=== PATIENT | male | born 1965 | race Caucasian/White ===

== ENCOUNTER 2018-01-19 12:13 | Inpatient (IN) ==
[2018-01-19] MEDS ORDERED: Heparin 10,000 UNITS/10 ML Vial (for IV use) IV.PUSH STA (12:16)
[2018-01-19] MEDS ORDERED: Morphine Sulfate Inj 2 MG/ML Vial ONE (12:22)
[2018-01-19] MEDS ORDERED: Sod Chloride 0.9% Inj 1,000 ML IV.SIG SCH (12:30)
--- NOTE | 2018-01-19 12:30 | ED ---
HPI General Chief Complaint: STEMI Alert Stated Complaint: STEMI Alert Time Seen by Provider: 01/19/18 12:16 Source: patient and EMS Mode of arrival: EMS Limitations: no limitations History of Present Illness HPI narrative: The patient is 52 years old. He arrives a stimulator. He was mowing his lawn about an hour prior to ED arrival when he developed chest pain. Location retrosternal to left upper extremity to the left elbow. Timing constant. The patient has a family history coronary disease on the father's side evidently with an NE in the 50s. Patient smokes tobacco. He denies history of hyperlipidemia hypertension diabetes. EMS gave 3 sprays nitro. Patient received aspirin in route. MD complaint: chest pain Complete Quality Measures for STEMI Alert Patients STEMI Alert: Yes Onset (ago): hour(s) (1.5) Time: 12:26 Duration: constant Onset: during exertion Pain location: substernal Severity: moderate Severity scale (1-10): 5 Quality: tightness and heaviness Pain radiation: LUE Relieving factors: nothing Exacerbating factors: nothing Context: other Associated symptoms: other Treatments prior to arrival chest pain: aspirin and nitroglycerin Related Data Home Medications Medication Instructions Recorded Confirmed No Known Home Medications 01/19/18 01/19/18 Allergies Allergy/AdvReac Type Severity Reaction Status Date / Time latex Allergy Anaphylaxis Verified 01/19/18 12:15 Review of Systems ROS Unobtainable ROS Unobtainable: other (Clinical condition, ST elevation NE upon arrival) [facility] Medical History Medical History Coronary artery disease (Acute) Patient denies medical problems (Acute) Surgical History Surgical History No history of previous surgery (Acute) S/P cardiac catheterization (Acute) Family History Family History Father Coronary artery disease Mother Colon cancer Social History Social History Substance History: No History of Abuse Second Hand Smoke Exposure: No Smoking Status: Current every day smoker Tobacco Type: Cigarettes How Often Do You Have a Drink Containing Alcohol: Never Recent Travel in [facility] within the Last 8 Weeks: No Recent Out of Country Travel within the Last 8 Weeks: No Exam Narrative Exam Narrative: GENERAL: 52-year-old male well-nourished well-developed, appropriate anxiety SKIN: Focused skin assessment warm/dry. HEAD: Atraumatic. Normocephalic. EYES: Pupils equal and round. No scleral icterus. No injection or drainage. ENT: No nasal bleeding or discharge. Mucous membranes pink and moist. NECK: Trachea midline. No JVD. CARDIOVASCULAR: Tachycardia. Regular rhythm. RESPIRATORY: No accessory muscle use. Clear to auscultation. Breath sounds equal bilaterally. GASTROINTESTINAL: Abdomen soft, non-tender, nondistended. Hepatic and splenic margins not palpable. MUSCULOSKELETAL: No obvious deformities. No clubbing. No cyanosis. No edema. NEUROLOGICAL: Awake and alert. No obvious cranial nerve deficits. Motor grossly within normal limits. Normal speech. PSYCHIATRIC: Appropriate mood and affect; insight and judgment normal. Course Initial Documented Vital Signs Temperature 98.7 F 01/19/18 12:15 Pulse Rate 117 H 01/19/18 12:15 Respiratory Rate 18 01/19/18 12:15 Blood Pressure 135/85 01/19/18 12:15 Pulse Oximetry 100 01/19/18 12:15 Last Documented Vital Signs Temperature 97.9 F 01/21/18 07:33 Pulse Rate 63 01/21/18 07:33 Respiratory Rate 18 01/21/18 07:33 Blood Pressure 110/66 01/21/18 07:33 Pulse Oximetry 100 01/21/18 07:33 Critical Care Time Critical Care Time: Yes Total Critical Care Time: 45 Attestation: Aggregate critical care time was 45 minutes. Time to perform other separately billable procedures was not included in the critical care time. My time did not include minutes spent treating any other patients simultaneously or on activities that did not directly contribute to the patient's treatment. The services I provided to this patient were to treat and/or prevent clinically significant deterioration that could result in: Cardiopulmonary arrest I provided critical care services requiring my management, as noted below: Chart data review, documentation time, medication orders and management, vital sign assessments/reviewing monitor data, ordering and reviewing lab tests, ordering and interpreting/reviewing x-rays and diagnostic studies, care of the patient and discussion of the patient with the admitting physicians. Medical Decision Making MDM Narrative Medical decision making narrative: Patient rises STEMI alert. STEMI activation initiated upon arrival. Discussed with service transformer repair supervisor Dr. Roque Case at 12: 25 PM. The patient will go to the [facility] emerg[facility]. Patient received heparin here as well as oxygen at 2 mg morphine. Blood pressure about 137/100 upon arrival here with a heart rate about 110. EKG here shows accelerated idioventricular rhythm with diffuse ST elevations. Lab Data Result diagrams: 01/20/18 02:26 08/13/18 02:26 Lab Results 01/19/18 01/19/18 01/19/18 Range/Units 12:15 12:15 12:15 WBC (4.0-11.0) th/mm3 RBC (4.50-5.90) mil/mm3 Hgb (13.0-17.0) gm/dL Hct (39.0-51.0) % MCV (80.0-100.0) fL MCH (27.0-34.0) pg MCHC (32.0-36.0) % RDW (11.6-17.2) % Plt Count (150-450) th/mm3 MPV (7.0-11.0) fL Neut % (Auto) (16.0-70.0) % Lymph % (Auto) (9.0-44.0) % Morrison % (Auto) (0.0-8.0) % Eos % (Auto) (0.0-4.0) % Baso % (Auto) (0.0-2.0) % Neut # (Auto) (1.8-7.7) th/mm3 Lymph # (Auto) (1.0-4.8) th/mm3 Morrison # (Auto) (0.0-0.9) th/mm3 Eos # (Auto) (0.0-0.4) th/mm3 Baso # (Auto) (0.0-0.2) th/mm3 WBC Differential Differential Comment PT 9.9 (9.8-11.6) sec INR 1.0 Ratio APTT 27.1 (24.3-30.1) sec Sodium 142 (136-145) meq/L Potassium 3.9 (3.5-5.1) meq/L Chloride 112 H (98-107) meq/L Carbon Dioxide 20.1 L (21.0-32.0) meq/L Anion Gap 10 (5-15) meq/L BUN 16 (7-18) mg/dL Creatinine 1.30 (0.60-1.30) mg/dL Estimated GFR 58 L (>89) mL/min Random Glucose 137 H (74-106) mg/dL Calcium 9.0 (8.5-10.1) mg/dL Magnesium 2.1 (1.5-2.5) mg/dL Total Creatine Kinase 118 (39-308) U/L CK-MB (CK-2) 1.3 (0.5-3.6) ng/mL Troponin I 0.05 (0.02-0.05) ng/mL B-Natriuretic Peptide 6 (0-100) pg/mL Triglycerides (42-150) mg/dL Cholesterol (120-200) mg/dL LDL Cholesterol, Calc (0-99) mg/dL HDL Cholesterol (40.0-60.0) mg/dL Cholesterol/HDL Ratio Ratio Blood Type Blood Type Recheck Antibody Screen 01/19/18 01/19/18 01/19/18 Range/Units 12:15 12:15 12:15 WBC 14.5 H (4.0-11.0) th/mm3 RBC 5.10 (4.50-5.90) mil/mm3 Hgb 16.0 (13.0-17.0) gm/dL Hct 46.0 (39.0-51.0) % MCV 90.2 (80.0-100.0) fL MCH 31.3 (27.0-34.0) pg MCHC 34.7 (32.0-36.0) % RDW 13.5 (11.6-17.2) % Plt Count 324 (150-450) th/mm3 MPV 9.3 (7.0-11.0) fL Neut % (Auto) 65.9 (16.0-70.0) % Lymph % (Auto) 25.0 (9.0-44.0) % Morrison % (Auto) 6.7 (0.0-8.0) % Eos % (Auto) 1.6 (0.0-4.0) % Baso % (Auto) 0.8 (0.0-2.0) % Neut # (Auto) 9.5 H (1.8-7.7) th/mm3 Lymph # (Auto) 3.6 (1.0-4.8) th/mm3 Morrison # (Auto) 1.0 H (0.0-0.9) th/mm3 Eos # (Auto) 0.2 (0.0-0.4) th/mm3 Baso # (Auto) 0.1 (0.0-0.2) th/mm3 WBC Differential . Differential Comment Auto diff final PT (9.8-11.6) sec INR Ratio APTT (24.3-30.1) sec Sodium Cancelled (136-145) meq/L Potassium Cancelled (3.5-5.1) meq/L Chloride Cancelled (98-107) meq/L Carbon Dioxide Cancelled (21.0-32.0) meq/L Anion Gap Cancelled (5-15) meq/L BUN Cancelled (7-18) mg/dL Creatinine Cancelled (0.60-1.30) mg/dL Estimated GFR Cancelled (>89) mL/min Random Glucose Cancelled (74-106) mg/dL Calcium Cancelled (8.5-10.1) mg/dL Magnesium (1.5-2.5) mg/dL Total Creatine Kinase (39-308) U/L CK-MB (CK-2) (0.5-3.6) ng/mL Troponin I (0.02-0.05) ng/mL B-Natriuretic Peptide (0-100) pg/mL Triglycerides (42-150) mg/dL Cholesterol (120-200) mg/dL LDL Cholesterol, Calc (0-99) mg/dL HDL Cholesterol (40.0-60.0) mg/dL Cholesterol/HDL Ratio Ratio Blood Type A Positive Blood Type Recheck Required Antibody Screen Negative 18 01/20/18 Range/Units 02:26 02:26 WBC 12.7 H (4.0-11.0) th/mm3 RBC 4.63 (4.50-5.90) mil/mm3 Hgb 14.5 (13.0-17.0) gm/dL Hct 42.6 (39.0-51.0) % MCV 92.2 (80.0-100.0) fL MCH 31.4 (27.0-34.0) pg MCHC 34.1 (32.0-36.0) % RDW 13.8 (11.6-17.2) % Plt Count 261 (150-450) th/mm3 MPV 9.1 (7.0-11.0) fL Neut % (Auto) 64.2 (16.0-70.0) % Lymph % (Auto) 26.7 (9.0-44.0) % Morrison % (Auto) 6.0 (0.0-8.0) % Eos % (Auto) 2.5 (0.0-4.0) % Baso % (Auto) 0.6 (0.0-2.0) % Neut # (Auto) 8.2 H (1.8-7.7) th/mm3 Lymph # (Auto) 3.4 (1.0-4.8) th/mm3 Morrison # (Auto) 0.8 (0.0-0.9) th/mm3 Eos # (Auto) 0.3 (0.0-0.4) th/mm3 Baso # (Auto) 0.1 (0.0-0.2) th/mm3 WBC Differential . Differential Comment Auto diff final PT (9.8-11.6) sec INR Ratio APTT (24.3-30.1) sec Sodium 142 (136-145) meq/L Potassium 4.0 (3.5-5.1) meq/L Chloride 110 H (98-107) meq/L Carbon Dioxide 24.2 (21.0-32.0) meq/L Anion Gap 8 (5-15) meq/L BUN 14 (7-18) mg/dL Creatinine 0.92 (0.60-1.30) mg/dL Estimated GFR 86 L (>89) mL/min Random Glucose 101 (74-106) mg/dL Calcium 8.5 (8.5-10.1) mg/dL Magnesium (1.5-2.5) mg/dL Total Creatine Kinase (39-308) U/L CK-MB (CK-2) (0.5-3.6) ng/mL Troponin I (0.02-0.05) ng/mL B-Natriuretic Peptide (0-100) pg/mL Triglycerides 352 H (42-150) mg/dL Cholesterol 171 (120-200) mg/dL LDL Cholesterol, Calc 76 (0-99) mg/dL HDL Cholesterol 24.8 L (40.0-60.0) mg/dL Cholesterol/HDL Ratio 6.89 Ratio Blood Type Blood Type Recheck Antibody Screen Imaging Data Radiologist's impression: Chest X-Ray 01/19/18 12:16 CONCLUSION: No acute disease Discharge Plan Discharge Disposition Patient Disposition: 30 Still Patient Physicians Team ED Provider: Garrett Case Primary Care Provider: Primary Care Cesilia Pleitez Attending Provider: Nilson Steel Other Providers: Roque Case Discharge Interventions Interventions: ED Discharge Assessment Last Done: 01/19/18 12:54 Vital Signs Last Done: 01/19/18 12:17 Status ED Status: Left Department Discharge Information Discharge Date/Time: 01/19/18 12:54
--- NOTE | 2018-01-19 12:39 | XR ---
EXAM DATE: 01/19/2018 12:37 PM EDT AGE/SEX: 52 years / Male INDICATIONS: Stemi alert. CLINICAL DATA: This is the patient's initial encounter. Patient reports that signs and symptoms have been present for 1 day and indicates a pain score of Nonresponsive. MEDICAL/SURGICAL HISTORY: . Unobtainable. . Unobtainable. COMPARISON: No prior exams available for comparison. FINDINGS: A single AP view of the chest demonstrates the lungs to be symmetrically aerated without evidence of mass, infiltrate or effusion. The cardiomediastinal contours are unremarkable. Osseous structures a re intact. CONCLUSION: No acute disease Electronically signed by: Earnest Ross MD 01/19/2018 12:38 PM EDT
[2018-01-19] MEDS ORDERED: Heparin/NS PF Inj 500 ML ONE (12:43)
[2018-01-19] MEDS ORDERED: fentaNYL Citrate Inj 100 MCG/2 ML Ampul ONE (12:44)
[2018-01-19 12:46] LABS: Baso # (Auto) 0.1 th/mm3 (0.0-0.2); Baso % (Auto) 0.8 % (0.0-2.0); Eos # (Auto) 0.2 th/mm3 (0.0-0.4); Eos % (Auto) 1.6 % (0.0-4.0); Lymph # (Auto) 3.6 th/mm3 (1.0-4.8); Mean Corpuscular HGB Conc 34.7 % (32.0-36.0); Mean Corpuscular Hemoglobin 31.3 pg (27.0-34.0); Mean Corpuscular Volume 90.2 fL (80.0-100.0); Mean Platelet Volume 9.3 fL (7.0-11.0); Mono % (Auto) 6.7 % (0.0-8.0); Neut # (Auto) 9.5 th/mm3 (1.8-7.7); Neut % (Auto) 65.9 % (16.0-70.0); Platelet Count 324 th/mm3 (150-450); Red Cell Distribution Width 13.5 % (11.6-17.2); White Blood Count 14.5 th/mm3 (4.0-11.0)
[2018-01-19] MEDS ORDERED: Morphine Inj 4 MG/ML Vial IV.PUSH ONE (12:50)
[2018-01-19 12:56] LABS: Activated Partial Thrombo Time 27.1 sec (24.3-30.1); Prothrombin Time 9.9 sec (9.8-11.6)
[2018-01-19 13:08] LABS: Magnesium 2.1 mg/dL (1.5-2.5)
[2018-01-19 13:11] LABS: Creatine Kinase 118 U/L (39-308); Troponin I 0.05 ng/mL (0.02-0.05)
[2018-01-19 13:23] LABS: Creatine Kinase MB 1.3 ng/mL (0.5-3.6)
[2018-01-19 13:35] LABS: Chloride 112 meq/L (98-107); Potassium 3.9 meq/L (3.5-5.1); Sodium 142 meq/L (136-145)
[2018-01-19 13:39] LABS: Anion Gap 10 meq/L (5-15); Blood Urea Nitrogen 16 mg/dL (7-18); Carbon Dioxide 20.1 meq/L (21.0-32.0); Glomerular Filtration Rate 58 mL/min (>89); Glucose,Random 137 mg/dL (74-106)
--- NOTE | 2018-01-19 13:42 | ECG ---
Date Performed: 01/19/2018 Time Performed: 12:17:20 PTAGE: 52 years EKG: UNCERTAIN IRREGULAR RHYTHM RIGHT BUNDLE BRANCH BLOCK ANTERIOR MYOCARDIAL INFARCTION INFERIO R MYOCARDIAL INFARCTION ACUTE WI NO PREVIOUS TRACING DOCTOR: Javi Paredes Interpretating Date/Time 01/19/2018 13:42:10
[2018-01-19] MEDS ORDERED: oxyCODONE/Acetaminophen 10/325 Tablet PO PRN (14:36)
[2018-01-19] MEDS ORDERED: Acetaminophen 325 MG Tablet PO PRN (14:36)
[2018-01-19] MEDS ORDERED: Misc Info for Pharmacy OTHER STA (14:36)
--- NOTE | 2018-01-19 14:36 | CATHPROC ---
[facility] HIS Report Study Information Study Number Admission Scheduled Start Study Start [id number] Jan 19 2018 12:13PM 01/19/2018 Jan 19 2018 12:47PM [place] [facility] Cardiac Catheterization Admit Source Facility Department Emergency department [facility] - Bagging Machine Operator Physician and Clinical Staff Initial Roque Yousif Loom Control Chain Builder Maribeth Ball,NAYELI Recorder Parrish Gamboa,RT(R) Scrub Akash, Laurence,PSYCHOLOGICAL ANTHROPOLOGIST TECH2 Procedures Performed Procedure Location (Site) Vessel Name Coronary Angiograms LCA Left Coronary Coronary Angiograms RCA Right Coronary Drug Eluting Inflatio RCA Dist Right Coronary Drug Eluting Inflatio RCA Mid Right Coronary Drug Eluting Inflatio RCA Prox Right Coronary L Heart Cath PTCA RCA Dist Right Coronary PTCA RCA Mid Right Coronary PTCA RCA Prox Right Coronary PTCA ADD ON'S Wire insertion Radial (right) Radial Art. Equipment Time Second Hand Paper Machine Description Size Mfg Part Number Used/Scraped WIRE, BALANCE MIDDLEWEIGHT [id number] 13:24 [employer] 190CM Used 190CM *[id number] CATHETER, FR4 BERENSTEIN [id number] 12:55 ANGIO-DYNAMICS FR 4 Used 65CM *[id number] TRANSDUCER, TRUWAVE [id number] 12:49 MONTEZ JUAREZ * Used W/STOCKCOCK *[id number] [id number] *[id number] [phone] *[id number] [phone] *[id number] [id number] *[id number] 12:49 Eloquii BLANKET,WARM AIR CCL * Used *[id number] 12:49 Eloquii PACK, CCL CUSTOM * Used *[id number] 12:49 Eloquii SUPPORT, ARTERIAL ADULT 15425 *[id number] Used [id number] 13:27 MEDTRONIC BALLOON, 2.0 X 6MM EUPHORA 6MM Used *[id number] BALLOON, 2.5 X 6MM NC [id number] 13:37 MEDTRONIC 6MM Used EUPHORA *[id number] BALLOON, 2.75 X 8MM NC [id number] 13:48 MEDTRONIC 8MM Used EUPHORA *0676944 BALLOON, 3.0 X 8MM NC [id number] 13:55 MEDTRONIC 8MM Used EUPHORA *[id number] BALLOON, 3.25 X 6MM NC [id number] 14:02 MEDTRONIC 6MM Used EUPHORA *[id number] [id number] 12:54 MEDTRONIC JL 3.5 DXTERITY CATHETER FR 5 Used *[id number] [id number] 13:35 MEDTRONIC STENT, 2.25 8MM TOÑA 2.25 8MM Used *1084084 [id number] 13:46 MEDTRONIC STENT, 2.5 12MM TOÑA 2.5 12MM Used *4422096 [id number] 13:52 MEDTRONIC STENT, 2.75 12MM TOÑA 2.75 12MM Used *5593896 [id number] 13:25 KartMe 30 LIYAH INDEFLATOR Used *5736794 BAND, RADIAL COMPRESSION TR [id number] 14:14 KartMe 24CM Used SHORT 24 *8182317 [id number] 12:49 KartMe WIRE, EXCHANGE 260CM 3MMJ 260CM Used *5256072 [id number] 12:49 NAMIC MANIFOLD, 4 PORT * Used *[id number] 12:49 NYCOMED OMNIPAQUE, 350 MG, 150ML 150ML [id number] Used 14:06 NYCOMED OMNIPAQUE, 350 MG, 150ML 150ML [id number] Used SHEATH, FR6 TRANSRADIAL [id number] 12:49 [employer] MEDICAL FR 6 Used SLENDER 10CM *[id number] Equipment Model, Serial, Lot Number and Expiration Data Description Model Number Serial Number Lot Number Expiration Rudy e STENT, 2.25 8MM TOÑA [id number] 11-13-2018 STENT, 2.5 12MM TOÑA [id number] 03-05-2019 STENT, 2.75 12MM TOAÑ [id number] 09-24-2019 History: Allergies Allergy Reaction latex Anaphylaxis History: Risk Factors Family History of Hypertension Dyslipidemia Previous PR Previous Heart Failure Premature CAD No No No No No Prior Valve Prior PCI Prior CABG Surgery No No No Cerebrovascular Peripheral Artery Chronic Lung On Dialysis Diabetes Disease Disease Disease No No No No No History: Risk Factors Selection Items Current Smoker History: Symptoms/Diagnosis Selection Items Chest pain History: Stress Tests Stress or Imaging Studies Performed No History: Other Current Smoker Method Packs a Day Years Used Pack Years Yes Cigarettes 1 36 36 Labs Hgb (g/dl) Hct (%) RBC (MIL/MM3) WBC (l/cumm) Platelets (thousands) 11.60-17.00 35.00-51.00 4.00-5.90 4.00-11.00 150.00-450.00 16.0 46 5.1 14.5 324 Glucose (mg/dl) BUN (mg/dl) Creatinine (mg/dl) BUN:Creatinine (1:x) 74.00-106.00 7.00-18.00 0.50-1.30 10.00-20.00 137 16 1.3 12.3 Na (meq/l) K (meq/l) Cl (meq/l) CO2 (mmol/L) Ca (mg/dl) 136.00-145.00 3.50-5.10 98.00-107.00 21.00-32.00 8.50-10.10 142 3.9 112 20.1 9 PT (sec) PTT (sec) INR (PTT:PT) 9.80-11.60 24.30-30.10 0.90-1.10 27.1 9.9 1 Troponin I (ng/ml) CPK (u/l) CPK-MB (ng/ML) 0.02-0.05 26.00-308.00 0.50-3.60 0.05 118 1.3 Medication Medication Total Dose (Bolus/Oral) Medication Total Dosage/Unit 1% XYLOCAINE 5 mL BRILLINTA 180 mg FENTANYL 25 mcg HEPARIN 6000 units RADIAL COCKTAIL 5 mL (Bolus) VERSED 0.5 mg Medications (Bolus/Oral) Medication Time Given Dosage/Unit Administered By Reason VERSED 01/19/2018 1:12:02 PM 0.5 mg Maribeth Ball 0.5 mg VERSED given in lab by Maribeth Ball RN in Right Antecubital via Peripheral IV. FENTANYL 01/19/2018 1:12:16 PM 25 mcg Maribeth Ball 25 mcg FENTANYL given in lab by Maribeth Ball RN in Right Antecubital via Peripheral IV. 1% XYLOCAINE 01/19/2018 1:12:24 PM 5 mL Maribeth Ball 5 mL 1% XYLOCAINE given in lab by Maribeth Ball, NAYELI in Right Radial via Subcutaneous. Ntg 200mcg Verapamil 2.5mg Heparin RADIAL COCKTAIL 01/19/2018 1:14:30 PM 5 mL (Bolus) Roque Case 3000U 5 mL (Bolus) RADIAL COCKTAIL given in lab by Roque Case in Right Radial via Radial. Using [S olution Name]. Reason: Ntg 200mcg Verapamil 2.5mg Heparin 3000U. HEPARIN 01/19/2018 1:31:00 PM 2000 units Maribeth Ball 2000 units HEPARIN given in lab by Maribeth Ball RN in Right Antecubital via Peripheral IV. HEPARIN 01/19/2018 1:43:11 PM 2000 units Maribeth Ball 2000 units HEPARIN given in lab by Maribeth Ball RN in Right Antecubital via Peripheral IV. HEPARIN 01/19/2018 1:46:00 PM 2000 units Maribeth Ball 2000 units HEPARIN given in lab by Maribeth Ball RN in Right Antecubital via Peripheral IV. BRILLINTA 01/19/2018 2:22:12 PM 180 mg Maribeth Ball 180 mg BRILLINTA given in lab by Maribeth Ball RN in Per mouth via Oral. Medication (Drip) Medication Time Given Dosage/Unit Concentration/Unit Diluent (ml) Solution IV Solutions 01/19/2018 12:58:37 PM 0 mL (IV) 500 NaCl .9 IV Solutions given in lab by Maribeth Ball RN in Right Antecubital via Peripheral IV. Pump/Drip Fl ow = 20 ml/hr using NaCl .9. Initial Case Assessment Cardiovascular HR Rhythm NIBP Chest Pain 74 Sinus 147/95 0 Edema Present Skin color Skin None Normal Warm Dry Circulatory - Right Pulses Dorsalis Pedis Femoral Radial 2 2 2 Scale (0,1,2,3,4,d) Circulatory - Left Pulses Dorsalis Pedis Femoral Radial 2 2 Scale (0,1,2,3,4,d) Neurological State Oriented to time-place- Alert Moves all extremities person Respiration - General Respiration Rate SpO2 (%) O2 (lpm) (B/min) 12 95 15 Final Case Assessment Cardiovascular HR Rhythm NIBP Chest Pain 90 Sinus 141/85 0 Edema Present Skin color Skin None Normal Warm Dry Circulatory - Right Pulses Dorsalis Pedis Femoral Radial 2 2 2 Scale (0,1,2,3,4,d) Circulatory - Left Pulses Dorsalis Pedis Femoral Radial 2 2 Scale (0,1,2,3,4,d) Neurological State Oriented to time-place- Alert Moves all extremities person Respiration - General Respiration Rate SpO2 (%) O2 (lpm) (B/min) 13 99 8 Chronological Log Time Study Chronological Log 12:58:12 Patient arrived via Bed. 12:58:13 Patient Name, D.O.B, / Armband Verified By R.N. 12:58:14 Consent signed by the physician and the patient and verified by the Bagging Machine Operator staff. 12:58:14 Pre-op and post- op instructions given; patient acknowledges understanding of instructions. 12:58:16 Verbal Stimulation=2 Physical Stimulation=2 Airway=2 Respiration=2 TOTAL=8. (0=absent, 1=li mited, 2=present) 12:58:19 Presedation assessment performed by Bagging Machine Operator RN. 12:58:28 Allens test performed on the right radial and ulnar artery. 12:58:30 Patient has been NPO for Less than 6Hrs. 12:58:31 Skin Breakdown- none per patient. 12:58:32 Patient Warmer Placed on the Table. 12:58:33 Sara Prominences Protected 12:58:35 A # 30 IV was noted in the Antecubital (right). Grade = 0 IV Solutions given in lab by Maribeth Ball, RN in Right Antecubital via Peripheral IV. Pump/D rip Flow = 20 ml/hr 12:58:37 using NaCl .9. 12:58:38 History and physical on the chart or being dictated. Assessment: Initial Case, HR=74 BPM, Rhythm=Sinus, QXLZ=818/95 mmhg, Chest Pain=0, Edema=None, Color=Normal, Skin = Warm, Dry Right Pulses: Chi Ped=2, Femoral=2, Radial=2 12:58:41 Left Pulses: Chi Ped=2, Femoral=2 Neurological: State=Alert, Ox3, LOVE Respiration: Resp=12 B/min, SpO2=95 %, O2=15 lpm 13:00:14 MD arrived. 13:05:16 Right Radial and groin(s) prepped with 2% chlorhexidine, and draped after a 3 min. waiting time. Vitals capture started with the following parameters, Patient=Adult, Interval=5 min, Initial Pr zwcvlo=683 mmHg, 13:09:28 Deflation Rate=5 mmHg, Cuff placed on Left Arm 13:10:04 HR=67 bpm, CCRT=107/95 mmhg, SpO2=99.0 %, Resp=23 B/min, Pain=0, Audrey=10, Myers=2 13:11:07 Reference ECG taken Time Out. Correct patient, correct procedure, correct physician, labs, allergies, and equipment verified with earthmoving labourer 13:11:39 team present. Fire risk assesment completed (see hard stop sheet for coding). Time Out Conc urred by MD and individual staff in procedure. 13:11:55 Pressure channel 1 zero failed. 13:12:02 0.5 mg VERSED given in lab by Maribeth Ball, NAYELI in Right Antecubital via Peripheral IV. 13:12:11 Pressure channel 1 zeroed. 13:12:16 25 mcg FENTANYL given in lab by Maribeth Ball RN in Right Antecubital via Peripheral IV. 13:12:23 Case Start 13:12:24 5 mL 1% XYLOCAINE given in lab by Maribeth Ball, NAYELI in Right Radial via Subcutaneous. 13:12:53 Access site was Right Radial Artery . A SHEATH, FR6 TRANSRADIAL SLENDER 10CM FR 6 was advanced into the Radial (right) using the Perc utaneous 13:13:11 technique. 5 mL (Bolus) RADIAL COCKTAIL given in lab by Roque Case in Right Radial via Radial. Us ing [Solution Name]. 13:14:30 Reason: Ntg 200mcg Verapamil 2.5mg Heparin 3000U. A JL 3.5 INFINITI CATHETER FR 5 was advanced over a wire. OMNIPAQUE, 350 MG, 150ML 150ML was us ed for 13:14:55 injections. 13:15:05 WP=355 bpm, IJQX=206/94 mmhg, Resp=16 B/min, Pain=0, Audrey=10, Myers=2 13:17:29 The LCA was injected and visualized at various angles. OMNIPAQUE, 350 MG, 150ML 150ML used . 13:18:31 Catheter was removed A JR 4.0 GUIDE CATHETER FR 6 was advanced over a wire. OMNIPAQUE, 350 MG, 150ML 150ML was used for 13:18:34 injections. 13:20:02 HR=88 bpm, PFHO=866/95 mmhg, SpO2=99.0 %, Resp=11 B/min, Pain=0, Audrey=10, Myers=2 Recorded Pressure: Ao, HR=83, Condition=Condition 1 13:21:25 (Aorta) Ao 124/82/103 13:24:50 contrast and 30 LIYAH INDEFLATOR added. 13:25:03 MQ=117 bpm, RKWV=872/97 mmhg, Resp=16 B/min, Pain=0, Audrey=10, Myers=2 13:25:47 Activated Clotting Time Drawn 13:26:33 A WIRE, BALANCE MIDDLEWEIGHT 190CM 190CM was inserted via Radial (right). 13:28:38 Interventional wire has crossed the lesion 13:30:07 ACT (Normal Range 90-180) = 224 13:30:10 HR=83 bpm, UFPN=535/76 mmhg, SpO2=98.0 %, Resp=19 B/min, Pain=0, Audrey=10, Myers=2 A BALLOON, 2.0 X 6MM EUPHORA 6MM was inserted over WIRE, BALANCE MIDDLEWEIGHT 190CM 190CM via t he RCA 13:30:42 Dist. A BALLOON, 2.0 X 6MM EUPHORA 6MM over a WIRE, BALANCE MIDDLEWEIGHT 190CM 190CM in the RCA Dist was 13:30:43 inflated using a 30 LIYAH INDEFLATOR at 14 liyah for 20 sec. 13:31:00 2000 units HEPARIN given in lab by Maribeth Ball, NAYELI in Right Antecubital via Peripheral IV. 13:32:35 Balloon Removed. A STENT, 2.25 8MM TOÑA 2.25 8MM was advanced through a JR 4.0 GUIDE CATHETER FR 6 over a WIRE, BALANCE 13:33:49 MIDDLEWEIGHT 190CM 190CM. 13:35:07 HR=83 bpm, FWKI=080/88 mmhg, SpO2=98.0 %, Resp=14 B/min, Pain=0, Audrey=10, Myers=2 A STENT, 2.25 8MM TOÑA 2.25 8MM was deployed using a 30 LIYAH INDEFLATOR at 16 atmospheres for 30 seconds in 13:35:17 the RCA Dist. 13:36:02 Delivery device removed 13:37:15 Activated Clotting Time Drawn A BALLOON, 2.5 X 6MM NC EUPHORA 6MM was inserted over WIRE, BALANCE MIDDLEWEIGHT 190CM 190CM vi a the 13:38:20 RCA Dist. 13:40:06 HR=61 bpm, DSMC=064/85 mmhg, Resp=10 B/min, Pain=0, Audrey=10, Myers=2 A BALLOON, 2.5 X 6MM NC EUPHORA 6MM over a WIRE, BALANCE MIDDLEWEIGHT 190CM 190CM in the RCA Di st was 13:41:28 inflated using a 30 LIYAH INDEFLATOR at 12 liyah for 12 sec. A BALLOON, 2.5 X 6MM NC EUPHORA 6MM over a WIRE, BALANCE MIDDLEWEIGHT 190CM 190CM in the RCA Di st was 13:41:58 inflated using a 30 LIYAH INDEFLATOR at 12 liyah for 12 sec. 13:42:31 ACT (Normal Range 90-180) = 252 13:43:11 2000 units HEPARIN given in lab by Maribeth Ball RN in Right Antecubital via Peripheral IV. 13:44:06 Balloon Removed. 13:45:09 HR=69 bpm, XRJR=328/87 mmhg, SpO2=98.0 %, Resp=11 B/min, Pain=0, Audrey=10, Myers=2 13:46:00 2000 units HEPARIN given in lab by Maribeth Ball RN in Right Antecubital via Peripheral IV. A STENT, 2.5 12MM TOÑA 2.5 12MM was advanced through a JR 4.0 GUIDE CATHETER FR 6 over a WIRE, BALANCE 13:46:03 MIDDLEWEIGHT 190CM 190CM. A STENT, 2.5 12MM TOÑA 2.5 12MM was deployed using a 30 LIYAH INDEFLATOR at 16 atmospheres for 30 seconds in 13:46:30 the RCA Mid. 13:46:50 Delivery device removed A BALLOON, 2.75 X 8MM NC EUPHORA 8MM was inserted over WIRE, BALANCE MIDDLEWEIGHT 190CM 190CM v ia the 13:48:02 RCA Mid. A BALLOON, 2.75 X 8MM NC EUPHORA 8MM over a WIRE, BALANCE MIDDLEWEIGHT 190CM 190CM in the RCA M id 13:48:55 was inflated using a 30 LIYAH INDEFLATOR at 12 liyah for 12 sec. A BALLOON, 2.75 X 8MM NC EUPHORA 8MM over a WIRE, BALANCE MIDDLEWEIGHT 190CM 190CM in the RCA M id 13:49:52 was inflated using a 30 LIYAH INDEFLATOR at 14 liyah for 12 sec. 13:50:08 HR=64 bpm, TNLW=611/82 mmhg, SpO2=97.0 %, Resp=15 B/min, Pain=0, Audrey=10, Myers=2 13:50:48 Balloon Removed. A STENT, 2.75 12MM TOÑA 2.75 12MM was advanced through a JR 4.0 GUIDE CATHETER FR 6 over a WIRE , BALANCE 13:52:35 MIDDLEWEIGHT 190CM 190CM. A STENT, 2.75 12MM TOÑA 2.75 12MM was deployed using a 30 LIYAH INDEFLATOR at 16 atmospheres for 25 seconds 13:54:08 in the RCA Prox. 13:55:01 Delivery device removed 13:55:09 HR=68 bpm, NCOD=894/89 mmhg, SpO2=99.0 %, Resp=14 B/min, Pain=0, Audrey=10, Myers=2 A BALLOON, 3.0 X 8MM NC EUPHORA 8MM was inserted over WIRE, BALANCE MIDDLEWEIGHT 190CM 190CM vi a the 13:57:10 RCA Prox. A BALLOON, 3.0 X 8MM NC EUPHORA 8MM over a WIRE, BALANCE MIDDLEWEIGHT 190CM 190CM in the RCA Pr ox 13:57:24 was inflated using a 30 LIYAH INDEFLATOR at 14 liyah for 20 sec. A BALLOON, 3.0 X 8MM NC EUPHORA 8MM over a WIRE, BALANCE MIDDLEWEIGHT 190CM 190CM in the RCA Pr ox 13:57:51 was inflated using a 30 LIYAH INDEFLATOR at 18 liyah for 20 sec. 13:58:21 Balloon Removed. 14:00:06 VX=087 bpm, DEYS=374/93 mmhg, Resp=14 B/min, Pain=0, Audrey=10, Myers=2 14:01:26 The RCA was injected and visualized at various angles. OMNIPAQUE, 350 MG, 150ML 150ML used . A BALLOON, 3.25 X 6MM NC EUPHORA 6MM was inserted over WIRE, BALANCE MIDDLEWEIGHT 190CM 190CM v ia the 14:02:53 RCA Prox. A BALLOON, 3.25 X 6MM NC EUPHORA 6MM over a WIRE, BALANCE MIDDLEWEIGHT 190CM 190CM in the RCA P boni 14:03:17 was inflated using a 30 LIYAH INDEFLATOR at ~LIYAH~ liyah for ~SECONDS~ sec. A BALLOON, 3.25 X 6MM NC EUPHORA 6MM over a WIRE, BALANCE MIDDLEWEIGHT 190CM 190CM in the RCA P boni 14:04:51 was inflated using a 30 LIYAH INDEFLATOR at 14 liyah for 14 sec. 14:05:40 HR=67 bpm, NLYN=274/71 mmhg, SpO2=98.0 %, Resp=20 B/min, Pain=0, Audrey=10, Myers=2 A BALLOON, 3.25 X 6MM NC EUPHORA 6MM over a WIRE, BALANCE MIDDLEWEIGHT 190CM 190CM in the RCA P boni 14:06:22 was inflated using a 30 LIYAH INDEFLATOR at 18 liyah for 12 sec. A BALLOON, 3.25 X 6MM NC EUPHORA 6MM over a WIRE, BALANCE MIDDLEWEIGHT 190CM 190CM in the RCA P boni 14:06:49 was inflated using a 30 LIYAH INDEFLATOR at 20 liyah for 14 sec. 14:07:34 Balloon Removed. 14:09:38 The RCA was injected and visualized at various angles. OMNIPAQUE, 350 MG, 150ML 150ML used . 14:09:55 Wire removed 14:10:08 HR=81 bpm, GBUJ=708/88 mmhg, SpO2=99.0 %, Resp=8 B/min, Pain=0, Audrey=10, Myers=2 14:11:24 A WIRE, EXCHANGE 260CM 3MMJ 260CM was inserted via Radial (right). 14:11:35 Wire removed Recorded Pressure: LV, HR=90, Condition=Condition 1 14:11:51 (Left Ventricle) LV 125/2/13 Recorded Pressure: LV, Ao, MS=353, Condition=Condition 1 14:12:13 (Left Ventricle) LV 131/-2/11, (Aorta) Ao 143/85/114 14:12:55 Catheter was removed 14:13:08 Case End (Physician broke scrub) 14:15:10 HR=62 bpm, YGSG=684/85 mmhg, YfW1=602.0 %, Resp=5 B/min, Pain=0, Audrey=10, Myers=2 Radial Compression Device Used. 9 mLs of air placed in BAND, RADIAL COMPRESSION TR SHORT 24 24C M. Affected 14:15:44 hand ~O2 SATURATION~ % O2 saturation. Assessment: Final Case, HR=90 BPM, Rhythm=Sinus, ZGGV=020/85 mmhg, Chest Pain=0, Edema=None, Color=Normal, Skin = Warm, Dry Right Pulses: Chi Ped=2, Femoral=2, Radial=2 14:15:58 Left Pulses: Chi Ped=2, Femoral=2 Neurological: State=Alert, Ox3, LOVE Respiration: Resp=13 B/min, SpO2=99 %, O2=8 lpm 14:18:37 No case complications noted. 14:18:43 Cine recording checked. 14:18:48 Bedside Report will be given. 14:18:52 Implantable Device card placed in patient's chart. 14:18:56 A Left Heart Cath was performed. 14:20:35 HR=68 bpm, UXVM=265/86 mmhg, SpO2=93.0 %, Resp=15 B/min, Pain=0, Audrey=10, Myers=2 14:22:12 180 mg BRILLINTA given in lab by Maribeth Ball, NAYELI in Per mouth via Oral. 14:25:10 HR=66 bpm, IPGU=677/85 mmhg, SpO2=98.0 %, Resp=7 B/min, Pain=0, Audrey=10, Myers=2 14:29:58 Vitals capture stopped. 14:30:43 [facility] Study - Contrast Media Used In Study Contrast Total Opened (mL) Total Used (mL) Total Wasted (mL) Omnipaque 300 135 165 End Study - Maximum Contrast Load Max Contrast Load (mL) 383.4 End Study - Radiation Exposure Fluoro Time (minutes) 12.9 End Study - Patient Disposition Complications Transferred To Interventional Outcome No Telemetry Bed successful
[2018-01-19] MEDS ORDERED: Heparin 10,000 UNITS/10 ML Vial (for IV use) ONE (14:55)
[2018-01-19] MEDS ORDERED: Labetalol HCl Inj 100 MG/20 ML Vial IV.PUSH ONE (16:49)
[2018-01-19] MEDS ORDERED: Melatonin 5 MG Tablet PO PRN (17:37)
--- NOTE | 2018-01-19 18:30 | MH ---
cc: Roque Case DO DATE OF ADMISSION: 01/19/2018 CHIEF COMPLAINT: Chest pain. HISTORY OF PRESENT ILLNESS: Kevin Kay is a pleasant 52-year-old male who arrives via an ambulance. He was mowing his lawn about an hour before and he started developing chest pain. It was retrosternal in nature and going to his left upper extremity and left elbow. He states that he had an episode which was short-lived 2-3 weeks ago and was going to see his primary care physician about it, but it was not scheduled for the next few weeks. EMS gave him 3 sprays of nitro on course to the emergency room. EKG done via EMS shows ST elevations inferiorly with reciprocal changes. On arrival, a repeat EKG was done, which shows a wide complex tachycardia consistent with an accelerated idioventricular rhythm. In seeing the patient, he states that his chest pain is much better at 2/10. PAST MEDICAL HISTORY: Denies. PAST SURGICAL HISTORY: Denies. ALLERGIES: LATEX. MEDICATIONS: Denies. FAMILY HISTORY: Father had a history of a myocardial infarction in his 50s. SOCIAL HISTORY: The patient smokes daily. Denies alcohol or drug abuse. REVIEW OF SYSTEMS: Fourteen systems were reviewed including osteopathic. Pertinent positives and negatives as above, otherwise negative. PHYSICAL EXAMINATION: VITAL SIGNS: Temperature 98.7, heart rate 105, blood pressure 158/98, respirations 19, pulse oximetry 100% on a nonrebreather. GENERAL: The patient appears in mild distress, alert, awake and oriented x3. HEENT: Extraocular muscles intact. Mucous membranes moist. NECK: Supple. No JVD at 45 degrees. No carotid bruits heard bilaterally. Carotid upstroke is brisk in nature. HEART: Tachycardic. Positive first and second heart sounds with no noted murmurs, gallops or rubs. LUNGS: Clear to auscultation bilaterally. No wheezes, rales or rhonchi. ABDOMEN: Soft, nontender, nondistended. No organomegaly noted. EXTREMITIES: Show no clubbing, cyanosis or edema. Femoral and distal pulses intact bilaterally. NEUROLOGIC: No focal deficits. SKIN: Warm, dry and intact. OSTEOPATHIC: No kyphoscoliosis, lordosis or paraspinal tender points. LABORATORY DATA: Hemoglobin 16, hematocrit 46.0, platelets 324. INR 1.0. Potassium 3.9, BUN 16, creatinine 1.3. Troponin 0.05. Electrocardiogram (01/19/2018, en route to the ER via EMS), sinus rhythm, ST elevations inferiorly, consistent with an acute ST elevation myocardial infarction. Electrocardiogram (01/19/2018 at 1217), wide complex tachycardia at 108 beats per minute, consistent with an accelerated idioventricular rhythm. IMPRESSION: 1. Acute inferior ST elevation myocardial infarction. 2. Wide complex tachycardia consistent with accelerated idioventricular rhythm. 3. Tobacco abuse. RECOMMENDATIONS: 1. Mr. Kay presented with symptoms consistent with coronary insufficiency. 2. EKG via EMS shows an ST elevation myocardial infarction in the inferior leads. EKG on arrival here appears to be accelerated idioventricular rhythm, which may show recanalization of his coronary vessel. 3. Due to his acute inferior ST elevation myocardial infarction, even though he has most likely recanalized this, he should undergo an emergent cardiac catheterization as there is most likely a significant lesion which may close off. 4. Risks, benefits and alternatives were explained to him and he consented to such. 5. We will check a 2-D echo to look at his overall left ventricular function, cardiac structure and possible valvulopathies. 6. We will plan on discussing with him about tobacco cessation. Thank you for allowing me to see Kevin Kay. If there are any questions, please do not hesitate to call. DO Billy Saldana , 04:57 PM , 05:09 PM
--- NOTE | 2018-01-19 19:58 | MA ---
cc: Roque Case DO DATE: 01/19/2018 DATE OF PROCEDURE: 01/19/2018. PROCEDURE: Left heart catheterization, coronary angiogram, moderate sedation, 60 minutes, Morris drug-eluting stent x3 (proximal RCA 2.75 x 12, distal RCA 2.5 x 12, mid posterolateral branch 2.25 x 8). PREPROCEDURE DIAGNOSIS: Acute inferior ST-elevation myocardial infarction, chest pain consistent with coronary insufficiency. POSTPROCEDURE DIAGNOSIS: Acute inferior myocardial infarction, status post Maury drug-eluting stent x3 (proximal RCA 2.75 x 12, distal RCA 2.5 x 12, posterolateral branch 2.25 x 8). MEDICATIONS: Versed 0.5 mg, fentanyl 25 mcg, nitro 400 mcg, verapamil 2.5 mg, heparin 8000 units, Brilinta 180 mg. CONTRAST USED: 135 mL. FLUOROSCOPY: 12.9 minutes. MODERATE SEDATION: 60 minutes. FRAILTY SCORE: 2. ESTIMATED BLOOD LOSS: 10 mL. PROCEDURAL SUMMARY Kevin Kay is a pleasant 52-year-old male who presented with significant chest pain to the emergency room. En route via EMS, his EKG showed acute inferior ST-elevation myocardial infarction. Once arriving here, he was found to be in an accelerated idioventricular rhythm, most likely is recanalizing his occluded vessel. Because of the acute ST elevation myocardial infarction as well as a presumed significant lesion which may close off, he was recommended cardiac catheterization. Risks, benefits and alternatives were explained to him and he consented to such. He was brought to the lab and prepped in the usual sterile fashion. The right radial artery was accessed using modified Seldinger technique and placement of a 5/6 Cameroonian slender sheath. This is easily aspirated and flushed. A JL 3.5 catheter was advanced to the ascending aorta and used for selective angiography of the left coronary artery system. This is exchanged out for a JR4 guide, which was used for selective angiography of the right coronary artery system. Due to the multiple lesions in the RCA, I felt that intervention was necessary for all 3 lesions. Heparin was administered in the ER as well as with the radial cocktail. A BMW wire was advanced into the distal RCA. A compliant balloon (2 x 6) was used to dilate the lesion in the posterolateral branch. An Maury drug-eluting stent (2.25 x 8) was then inflated over the lesion and postdilated with a noncompliant balloon (2.5 x 6). An Maury drug-eluting stent (2.5 x 12) was placed over the lesion in the distal RCA and this was postdilated with a noncompliant balloon (2.75 x 8). An Morris drug-eluting stent (2.75 x 12) was placed over the proximal lesion and this was postdilated with a noncompliant balloon (3 x 8) and again with a noncompliant balloon (3.25 x 6). The wire was removed and angiogram shows three well-apposed stents with no perforations or dissections. Guidewire was then advanced over a J-wire into the left ventricle for measurement of left ventricular pressure. This was pulled back across the aortic valve showing no significant gradient of aortic stenosis. JR4 guide was removed over a J-wire. A radial band was placed over the arteriotomy site for hemostasis. The patient was loaded with 180 mg of Brilinta. 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 FINDINGS: LEFT MAIN: Normal-sized vessel with adequate reflux. It bifurcates into an LAD and circumflex. LAD: Moderate size vessel with a 60% stenosis in the mid portion and the apical portion has tandem lesions of 80% to 90%, which supply a very small distal component of the apex. LEFT CIRCUMFLEX: Moderate size vessel with mild luminal irregularities. It gives off 2 obtuse marginals with the first having 30% disease in the proximal portion and the second having 30% disease in the mid portion. RCA: Moderate size vessel with 70% stenosis in the proximal portion, 80% stenosis in the distal portion, and a 99% stenosis in the posterolateral branch. LVEDP 11. INTERVENTIONAL DATA: Lesion 1 proximal RCA, lesion length 12, pre-JENN 3, post-JENN 3, post-stenosis 0. Lesion to distal RCA, lesion length 12, pre-JENN 3, post-JENN 3, post-stenosis 0. Lesion 3 culprit vessel, posterolateral branch. Lesion length 8, pre-JENN 2, post-JENN 3, post-stenosis 0. IMPRESSION: 1. Acute inferior ST-elevation myocardial infarction. 2. Accelerated idioventricular rhythm showing recanalization. 3. Coronary artery disease, status post Morris drug-eluting stent x3 to RCA as above. 4. Tobacco abuse. RECOMMENDATIONS: 1. Mr. Kay underwent PCI as above and will be placed on aspirin and Brilinta therapy. 2. He will be started on beta thang, DIANA inhibitor, and statin therapy. 3. We will check a 2-D echocardiogram to look at his overall left ventricular function, cardiac structure and possible valvopathies. 4. I spoke to him for greater than 3 minutes about tobacco cessation. 5. He will most likely be in the hospital for 48 hours post-UT. 6. He does have a moderate lesion in the LAD as well as significant lesion in the distal apical segment. For now, this will be treated medically and if he has further problems, most likely I would intervene on the mid LAD, but the distal LAD should be treated medically, as it supplies a small amount of myocardium at the apex. Thank you for allowing me to see Kevin Kay. If there are any questions, please do not hesitate to call. DO OCHOA Saldana/ , 05:08 PM , 05:22 PM
[2018-01-19] MEDS: Metoprolol Tartrate 25 MG Tablet PO SCH (20:24)
[2018-01-20 03:31] LABS: Baso # (Auto) 0.1 th/mm3 (0.0-0.2); Baso % (Auto) 0.6 % (0.0-2.0); Eos # (Auto) 0.3 th/mm3 (0.0-0.4); Eos % (Auto) 2.5 % (0.0-4.0); Hematocrit 42.6 % (39.0-51.0); Hemoglobin 14.5 gm/dL (13.0-17.0); Lymph # (Auto) 3.4 th/mm3 (1.0-4.8); Lymph % (Auto) 26.7 % (9.0-44.0); Mean Corpuscular HGB Conc 34.1 % (32.0-36.0); Mean Corpuscular Hemoglobin 31.4 pg (27.0-34.0); Mean Corpuscular Volume 92.2 fL (80.0-100.0); Mean Platelet Volume 9.1 fL (7.0-11.0); Mono # (Auto) 0.8 th/mm3 (0.0-0.9); Neut # (Auto) 8.2 th/mm3 (1.8-7.7); Neut % (Auto) 64.2 % (16.0-70.0); Platelet Count 261 th/mm3 (150-450); Red Blood Count 4.63 mil/mm3 (4.50-5.90); Red Cell Distribution Width 13.8 % (11.6-17.2); White Blood Count 12.7 th/mm3 (4.0-11.0)
[2018-01-20 03:43] LABS: Calcium 8.5 mg/dL (8.5-10.1); Carbon Dioxide 24.2 meq/L (21.0-32.0)
[2018-01-20 03:46] LABS: Chol/HDL Ratio 6.89 Ratio; HDL Cholesterol 24.8 mg/dL (40.0-60.0)
[2018-01-20] MEDS: Lisinopril 5 MG Tablet PO SCH (08:30)
[2018-01-20] MEDS: Metoprolol Tartrate 25 MG Tablet PO SCH ×2 (08:31→20:11)
[2018-01-20] MEDS ORDERED: Iohexol 350 MG/ML 50 ML Vial (for Cath Lab) IV.SIG ONE (08:35)
[2018-01-20] MEDS ORDERED: Iohexol 350 MG/ML 100 ML Vial (for Cath Lab) IV.SIG ONE (08:35)
--- NOTE | 2018-01-20 10:59 | P.HPIM ---
History of Present Illness Primary Care Physician: No Primary Care Physician History of Present Illness: 52-year-old male with a [id number] smoking history who presented with constant nonradiating sharp chest pain after mowing the lawn yesterday, found to have STEMI on EKG. Patient underwent cardiac catheterization with drug- eluting stent 3 to RCA yesterday. Patient says he is currently feeling well. Denies any chest pain or shortness of breath. Denies nausea or vomiting. He denies any recent illnesses prior to his chest pain beginning. Inpatient Certification: I certify that the inpatient services were ordered in accordance with Medicare regulations governing the order. This includes certification that hospital inpatient services are reasonable and necessary and in the case of services not specified as inpatient-only under 42 CFR 419.22(n), that they are appropriately provided as inpatient services in accordance to with the 2-midnight benchmark under 43 CFR 412.3(e) Estimated Total Length of Stay (Days): 3 Plans for Post Hospital Care: Home Review of Systems All other systems reviewed negative except as stated in HPI [facility] - History History Provided By: Patient - Medical History Medical History: Medical History (Last Updated 01/20/18 @ 10:55 by Nilson Steel MD) Coronary artery disease Patient denies medical problems - Surgical History Surgical History: Surgical History (Last Updated 01/20/18 @ 10:55 by Nilson Steel MD) No history of previous surgery S/P cardiac catheterization - Family History Family History: Family History (Last Updated 01/20/18 @ 10:55 by Nilson Steel MD) Father Coronary artery disease Mother Colon cancer - Tobacco History Second Hand Smoke Exposure: No Tobacco Use In Past 30 Days: Yes Smoking Status: Current every day smoker Tobacco Type: Cigarettes - Alcohol History How Often Do You Have a Drink Containing Alcohol: Never - Substance Use History Substance History: No History of Abuse - Travel History Recent Travel in the [place] Within the Last 8 Weeks: No Recent Travel Out of the Country Within the Last 8 Weeks: No - Immunization History Tetanus Immunization: Unsure Hx Influenza Vaccine This Season: No Medications and Allergies Active Medications: Active Medications Acetaminophen (Tylenol) 325 mg PO Q4H PRN PRN Reason: PAIN SCALE 1 TO 2 Aspirin (Aspirin Chew) 81 mg PO DAILY [facility] Last Admin: 01/20/18 08:30 Dose: 81 mg Atorvastatin Calcium (Lipitor) 80 mg PO HS [facility] Last Admin: 01/19/18 20:46 Dose: 80 mg Sodium Chloride (Ns Inj) 1,000 mls @ 30 mls/hr IV.SIG .Q24H [facility] Stop: 01/20/18 12:29 Last Admin: 01/19/18 12:24 Dose: 30 mls/hr Lisinopril (Prinivil) 5 mg PO DAILY [facility] Last Admin: 01/20/18 08:30 Dose: 5 mg Melatonin (Melatonin) 5 mg PO HS PRN PRN Reason: SLEEP Last Admin: 01/19/18 20:50 Dose: 5 mg Metoprolol Tartrate (Lopressor) 12.5 mg PO BID [facility] Last Admin: 01/20/18 08:31 Dose: 12.5 mg Oxycodone/Acetaminophen (Percocet 10/325 Mg) 1 tab PO Q4H PRN PRN Reason: PAIN SCALE 6 TO 10 Oxycodone/Acetaminophen (Percocet 5/325 Mg) 1 tab PO Q4H PRN PRN Reason: PAIN SCALE 3 TO 5 Last Admin: 01/20/18 08:30 Dose: 1 tab Sodium Chloride (Ns Flush) 2 ml IV.FLUSH PRN PRN PRN Reason: FLUSH AFTER USING IV ACCESS Sodium Chloride (Ns Flush) 2 ml IV.FLUSH BID [facility] Last Admin: 01/20/18 08:32 Dose: 2 ml Sodium Chloride (Ns Flush) 2 ml IV.FLUSH PRN PRN PRN Reason: FLUSH AFTER USING IV ACCESS Ticagrelor (Brilinta) 90 mg PO BID [facility] Last Admin: 01/20/18 08:31 Dose: 90 mg Allergies Allergy/AdvReac Type Severity Reaction Status Date / Time latex Allergy Anaphylaxis Verified 01/19/18 12:15 Home Medications Medication Instructions Recorded Confirmed Type No Known Home Medications 01/19/18 01/19/18 History Exam Vital signs: Vital Signs 01/19/18 12:15 01/19/18 12:17 01/19/18 12:20 Temperature 98.7 F Pulse Rate 117 H 105 H Respiratory Rate 18 19 Blood Pressure 135/85 158/98 H Pulse Oximetry 100 100 100 01/19/18 12:52 01/19/18 14:40 01/19/18 14:45 Temperature 98.6 F Pulse Rate 100 H 66 86 Respiratory Rate 17 18 18 Blood Pressure 143/98 H 143/86 H 140/88 Pulse Oximetry 100 97 97 01/19/18 15:00 01/19/18 15:15 01/19/18 15:30 Temperature 98.6 F Pulse Rate 75 87 84 Respiratory Rate 18 16 18 Blood Pressure 151/86 H 143/86 H 145/84 H Pulse Oximetry 97 01/19/18 16:00 01/19/18 16:30 01/19/18 17:00 Temperature Pulse Rate 79 84 79 Respiratory Rate 16 16 16 Blood Pressure 148/96 H 154/96 H 147/95 H Pulse Oximetry 98 98 98 01/19/18 17:30 01/19/18 20:00 01/19/18 22:50 Temperature 97.8 F Pulse Rate 66 59 L Respiratory Rate 16 18 Blood Pressure 142/90 H 139/84 Pulse Oximetry 98 97 95 01/20/18 00:00 01/20/18 04:00 01/20/18 07:00 Temperature 98.0 F 98.0 F 98.2 F Pulse Rate 61 61 60 Respiratory Rate 16 16 16 Blood Pressure 118/68 101/81 121/71 Pulse Oximetry 97 96 98 01/20/18 09:39 01/20/18 10:00 Temperature Pulse Rate 75 69 Respiratory Rate 16 Blood Pressure 148/97 H Pulse Oximetry 97 Intake & Output 01/19/18 01/20/18 01/20/18 18:59 06:59 18:59 Intake Total 1430 / 1430 1940 / 1940 Output Total 725 / 725 1750 / 1750 Balance 705 / 705 190 / 190 Weight 99.79 kg 102 kg Intake: IV 0 / 0 Heparin/NS PF Inj 500 ML @ 0 0 / 0 mls/hr .ROUTE .[facility] Rx#: [id number] Oral 480 / 480 1440 / 1440 Anesthesia Amount 450 / 450 Other 500 / 500 500 / 500 Output: Urine 725 / 725 1750 / 1750 Other: Other Intake Source Saline Solution Saline Solution Date of Last Bowel Movement 01/19/18 01/19/18 # Bowel Movements 0 Narrative: GENERAL: Patient sitting up in bed. Eating fruit. Appears comfortable. Alert and oriented 3. SKIN: Warm and dry. HEAD: Atraumatic. Normocephalic. EYES: Pupils equal and round. No scleral icterus. No injection or drainage. ENT: No nasal bleeding or discharge. Mucous membranes pink and moist. NECK: Trachea midline. No JVD. CARDIOVASCULAR: Regular rate and rhythm. RESPIRATORY: No accessory muscle use. Clear to auscultation. Breath sounds equal bilaterally. GASTROINTESTINAL: Abdomen soft, non-tender, nondistended. Hepatic and splenic margins not palpable. MUSCULOSKELETAL: Extremities without clubbing, cyanosis, or edema. No obvious deformities. NEUROLOGICAL: Awake and alert. No obvious cranial nerve deficits. Motor grossly within normal limits. Five out of 5 muscle strength in the arms and legs. Normal speech. PSYCHIATRIC: Appropriate mood and affect; insight and judgment normal. Results - Labs CBC & Chem 7: 01/20/18 02:26 01/20/18 02:26 Labs: Short CBC 01/19/18 01/20/18 Range/Units 12:15 02:26 WBC 14.5 H 12.7 H (4.0-11.0) th/mm3 Hgb 16.0 14.5 (13.0-17.0) gm/dL Hct 46.0 42.6 (39.0-51.0) % Plt Count 324 261 (150-450) th/mm3 BMP 01/19/18 01/19/18 01/20/18 12:15 12:15 02:26 Sodium 142 Cancelled 142 Potassium 3.9 Cancelled 4.0 Chloride 112 H Cancelled 110 H Carbon Dioxide 20.1 L Cancelled 24.2 BUN 16 Cancelled 14 Creatinine 1.30 Cancelled 0.92 Calcium 9.0 Cancelled 8.5 Cardiac Enzymes 01/19/18 Range/Units 12:15 Total Creatine Kinase 118 (39-308) U/L CK-MB (CK-2) 1.3 (0.5-3.6) ng/mL Troponin I 0.05 (0.02-0.05) ng/mL - Imaging Impressions Chest X-Ray 01/19/18 12:16 CONCLUSION: No acute disease Caprini VTE Risk Assessment Caprini VTE Risk Assessment: No/Low Risk (score <= 1) Caprini Risk Assessment Model: Point Value = 1 Point Value = 2 Point Value = 3 Point Value = 5 Age 41-60 Minor surgery BMI > 25 kg/m2 Swollen legs Varicose veins or History of unexplained or recurrent spontaneous Oral contraceptives or hormone replacement Sepsis (< 1 month) Serious lung disease, including pneumonia (< 1 month) Abnormal pulmonary function Acute myocardial infarction Congestive heart failure (< 1 month) History of inflammatory bowel disease Medical patient at bed rest Age 61-74 Arthroscopic surgery Major open surgery (> 45 min) Laparoscopic surgery (> 45 min) Malignancy Confined to bed (> 72 hours) Immobilizing plaster cast Central venous access Age >= 75 History of VTE Family history of VTE Factor V Leiden Prothrombin [id number] Lupus anticoagulant Anticardiolipin antibodies Elevated serum homocysteine Heparin-induced thrombocytopenia Other congenital or acquired thrombophilia Stroke (< 1 month) Elective arthroplasty Hip, pelvis, or leg fracture Acute spinal cord injury (< 1 month) Prophylaxis Regimen: Total Risk Factor Score Risk Level Prophylaxis Regimen 0-1 Low Early ambulation 2 Moderate Order ONE of the following: *Sequential Compression Device (SCD) *Heparin 5000 units SQ BID 3-4 Higher Order ONE of the following medications: *Heparin 5000 units SQ TID *Enoxaparin/Lovenox 40 mg SQ daily (WT < 150 kg, CrCl > 30 mL/min) *Enoxaparin/Lovenox 30 mg SQ daily (WT < 150 kg, CrCl > 10-29 mL/min) *Enoxaparin/Lovenox 30 mg SQ BID (WT < 150 kg, CrCl > 30 mL/min) AND/OR *Sequential Compression Device (SCD) 5 or more Highest Order ONE of the following medications: *Heparin 5000 units SQ TID (Preferred with Epidurals) *Enoxaparin/Lovenox 40 mg SQ daily (WT < 150 kg, CrCl > 30 mL/min) *Enoxaparin/Lovenox 30 mg SQ daily (WT < 150 kg, CrCl > 10-29 mL/min) *Enoxaparin/Lovenox 30 mg SQ BID (WT < 150 kg, CrCl > 30 mL/min) AND *Sequential Compression Device (SCD) Assessment and Plan - Plan //Coronary artery disease //Acute STEMI status post drug-eluting stent x3 to RCA = Continue on aspirin and Brilinta, metoprolol, atorvastatin. = Echocardiogram pending. Management as per cardiology. Appreciate assistance. //Tobacco abuse. Cessation counseling provided. //Leukocytosis on admission. 14.5 on admission. Improving 12.7. This is likely reactive secondary to stress from STEMI. No signs of infection, but we will continue to monitor. Discussed Condition With: Patient, nurse, at bedside. Discharge Planning: home Pending cardiology clearance.
--- NOTE | 2018-01-20 16:09 | P.PNCA ---
Subjective Interval history: No events overnight Mild ache on the left side, relieved with Percocet Physical Exam Vital signs: Vital Signs 01/19/18 16:30 01/19/18 17:00 01/19/18 17:30 Temperature Pulse Rate 84 79 66 Respiratory Rate 16 16 16 Blood Pressure 154/96 H 147/95 H 142/90 H Pulse Oximetry 98 98 98 01/19/18 20:00 01/19/18 22:50 01/20/18 00:00 Temperature 97.8 F 98.0 F Pulse Rate 59 L 61 Respiratory Rate 18 16 Blood Pressure 139/84 118/68 Pulse Oximetry 97 95 97 01/20/18 04:00 01/20/18 07:00 01/20/18 09:39 Temperature 98.0 F 98.2 F Pulse Rate 61 60 75 Respiratory Rate 16 16 16 Blood Pressure 101/81 121/71 148/97 H Pulse Oximetry 96 98 97 01/20/18 10:00 01/20/18 11:00 01/20/18 12:00 Temperature 98.2 F Pulse Rate 69 62 58 L Respiratory Rate 16 Blood Pressure 135/61 Pulse Oximetry 98 01/20/18 14:00 01/20/18 15:00 Temperature Pulse Rate 54 L Respiratory Rate Blood Pressure Pulse Oximetry 98 Intake & Output 01/19/18 01/20/18 01/20/18 18:59 06:59 18:59 Intake Total 1430 / 1430 1940 / 1940 Output Total 725 / 725 1750 / 1750 Balance 705 / 705 190 / 190 Weight 99.79 kg 102 kg Intake: IV 0 / 0 Heparin/NS PF Inj 500 ML @ 0 0 / 0 mls/hr .ROUTE .[facility] Rx#: [id number] Oral 480 / 480 1440 / 1440 Anesthesia Amount 450 / 450 Other 500 / 500 500 / 500 Output: Urine 725 / 725 1750 / 1750 Other: Other Intake Source Saline Solution Saline Solution Date of Last Bowel Movement 01/19/18 01/19/18 # Bowel Movements 0 Narrative: GENERAL: NAD, AAOx3 SKIN: Warm and dry. HEAD: Atraumatic. Normocephalic. EYES: Pupils equal and round. No scleral icterus. No injection or drainage. ENT: No nasal bleeding or discharge. Mucous membranes pink and moist. NECK: Trachea midline. No JVD. CARDIOVASCULAR: Regular rate and rhythm. RESPIRATORY: No accessory muscle use. Clear to auscultation. Breath sounds equal bilaterally. GASTROINTESTINAL: Abdomen soft, non-tender, nondistended. Hepatic and splenic margins not palpable. MUSCULOSKELETAL: Extremities without clubbing, cyanosis, or edema. No obvious deformities. NEUROLOGICAL: Awake and alert. No obvious cranial nerve deficits. Motor grossly within normal limits. Five out of 5 muscle strength in the arms and legs. Normal speech. PSYCHIATRIC: Appropriate mood and affect; insight and judgment normal. Assessment and Plan - Assessment (1) STEMI (ST elevation myocardial infarction) Code(s): I21.3 - ST elevation (STEMI) myocardial infarction of unspecified site Status: Acute (2) CAD (coronary artery disease) Code(s): I25.10 - Atherosclerotic heart disease of [place] coronary artery without angina pectoris Status: Acute (3) HTN (hypertension) Code(s): I10 - Essential (primary) hypertension Status: Acute (4) Tobacco abuse Code(s): Z72.0 - Tobacco use Status: Acute - Plan 1) Acute inferior STEMI S/p DESx3 to RCA/PLB ASA/Brilinta/BB/ARB/Statin 2) Tobacco cessation 3) Mild leukocytosis Most likely acute phase reactant 4) 2D echo pending 5) Plan discharge tomorrow morning
--- NOTE | 2018-01-20 16:46 | ECHRPT ---
Indication: CORONARY ATHEROSCLEROSIS CONCLUSIONS The left ventricular systolic function is low normal with an estimated ejection fraction in the rang e of 50- 55%. There is trace tricuspid valve regurgitation. BP: / HR: Rhythm: Sinus MEASUREMENTS (Male / Female) Normal Values Technical Quality:Fair 2D ECHO LV Diastolic Diameter PLAX 5.1 cm 4.2 - 5.9 / 3.9 - 5.3 cm LV Systolic Diameter PLAX 3.3 cm IVS Diastolic Thickness 1.0 cm 0.6 - 1.0 / 0.6 - 0.9 cm LVPW Diastolic Thickness 1.0 cm 0.6 - 1.0 / 0.6 - 0.9 cm LV Relative Wall Thickness 0.4 RV Internal Dim ED PLAX 2.7 cm LVOT Diameter 2.3 cm Aortic Root Diameter 3.6 cm LA Systolic Diameter LX 3.7 cm 3.0 - 4.0 / 2.7 - 3.8 cm M-MODE AV Cusp Separation MM 2.1 cm DOPPLER AV Peak Velocity 116.0 cm/s AV Peak Gradient 5.4 mmHg AV Mean Gradient 3.0 mmHg AV Velocity Time Integral 25.1 cm LVOT Peak Velocity 114.0 cm/s LVOT Peak Gradient 5.2 mmHg LVOT Velocity Time Integral 20.3 cm AV Area Cont Eq vti 3.4 cm AV Area Cont Eq pk 4.1 cm Mitral E Point Velocity 60.2 cm/s Mitral A Point Velocity 55.3 cm/s Mitral E to A Ratio 1.1 LV E' Lateral Velocity 8.5 cm/s Mitral E to LV E' Lateral Ratio 7.1 LV E' Septal Velocity 8.7 cm/s Mitral E to LV E' Septal Ratio 6.9 TR Peak Velocity 221.0 cm/s TR Peak Gradient 19.5 mmHg Right Atrial Pressure 10.0 mmHg Pulmonary Artery Systolic Pressu 29.5 mmHg Right Ventricular Systolic Press 29.5 mmHg PV Peak Velocity 63.2 cm/s PV Peak Gradient 1.6 mmHg FINDINGS LEFT VENTRICLE Normal left ventricular size. Wall thickness is normal. The left ventricular systolic function is low normal with an estimated ejection fraction in the rang e of 50- 55%. RIGHT VENTRICLE Normal right ventricular size and systolic function. LEFT ATRIUM The left atrial size is normal. RIGHT ATRIUM The right atrial size is normal. ATRIAL SEPTUM No atrial level shunt is demonstrated by color flow Doppler interrogation. AORTA The aortic root and proximal ascending aorta are not well visualized. MITRAL VALVE Structurally normal mitral valve. No mitral valve stenosis or regurgitation. AORTIC VALVE Trileaflet aortic valve. No aortic valve stenosis or regurgitation. TRICUSPID VALVE Grossly normal tricuspid valve There is trace tricuspid valve regurgitation. The estimated pulmonary arterial pressure is 29.5 mmHg. PULMONARY VALVE No pulmonary valve regurgitation or stenosis. VESSELS The inferior vena cava is normal in size. PERICARDIUM No pericardial effusion. oRque Case DO (Electronically Signed) Final Date:20 January 2018 16:45
[2018-01-21 07:40] VITALS: BP 110/66; RESP 18; TEMP 97.9; O2SAT 100
[2018-01-21] MEDS: Lisinopril 5 MG Tablet PO SCH (08:53)
[2018-01-21] MEDS: Metoprolol Tartrate 25 MG Tablet PO SCH (08:53)
--- NOTE | 2018-01-21 10:08 | P.PNIM ---
Subjective Interval history: Patient says he is feeling right. Denies any chest pain shortness of breath. Says he would like to go home. Physical Exam Vital signs: Vital Signs 01/20/18 11:00 01/20/18 12:00 01/20/18 14:00 Temperature 98.2 F Pulse Rate 62 58 L 54 L Respiratory Rate 16 Blood Pressure 135/61 Pulse Oximetry 98 01/20/18 15:00 01/20/18 16:00 01/20/18 17:56 Temperature 98.4 F Pulse Rate 53 L 56 L 60 Respiratory Rate 18 Blood Pressure 126/83 Pulse Oximetry 98 01/20/18 19:00 01/20/18 20:00 01/20/18 21:00 Temperature 98.4 F Pulse Rate 54 L 58 L 54 L Respiratory Rate 19 Blood Pressure 107/71 Pulse Oximetry 98 01/20/18 22:00 01/20/18 23:00 01/21/18 00:00 Temperature 98.4 F Pulse Rate 50 L 50 L 52 L Respiratory Rate 19 Blood Pressure 100/61 Pulse Oximetry 98 01/21/18 01:00 01/21/18 02:00 01/21/18 03:00 Temperature 98.5 F Pulse Rate 53 L 61 60 Respiratory Rate 19 Blood Pressure 105/63 Pulse Oximetry 98 01/21/18 04:00 01/21/18 05:49 01/21/18 06:00 Temperature Pulse Rate 53 L 54 L 55 L Respiratory Rate Blood Pressure Pulse Oximetry 01/21/18 07:33 Temperature 97.9 F Pulse Rate 63 Respiratory Rate 18 Blood Pressure 110/66 Pulse Oximetry 100 Intake & Output 01/20/18 01/21/18 01/21/18 18:59 06:59 18:59 Intake Total 1800 / 1800 1420 / 1420 Output Total 1200 / 1200 1450 / 1450 Balance 600 / 600 -30 / -30 Weight 100.5 kg Intake: IV 1000 / 1000 Oral 1800 / 1800 420 / 420 Output: Urine 1200 / 1200 1450 / 1450 Other: Date of Last Bowel Movement 01/19/18 Narrative: GENERAL: Patient sitting up in bed. Appears comfortable. Alert and oriented 4. SKIN: Warm and dry. HEAD: Normocephalic. EYES: No scleral icterus. No injection or drainage. NECK: Supple, trachea midline. No JVD. CARDIOVASCULAR: Regular rate and rhythm without murmurs, gallops, or rubs. RESPIRATORY: Breath sounds equal bilaterally. No accessory muscle use. GASTROINTESTINAL: Abdomen soft, non-tender, nondistended. MUSCULOSKELETAL: No cyanosis, or edema. BACK: Nontender without obvious deformity. No CVA tenderness. Results - Labs CBC & Chem 7: 01/20/18 02:26 01/20/18 02:26 Assessment and Plan - Plan //Coronary artery disease //Acute STEMI status post drug-eluting stent x3 to RCA = Continue on aspirin and Brilinta, metoprolol, atorvastatin. = Echocardiogram pending. Management as per cardiology. Appreciate assistance. = 01/21. Echocardiogram with EF in the 50s. Only mild TR. Cleared by cardiology. Discharged on beta-thang, statin, DIANA inhibitor, aspirin, Brilinta. //Tobacco abuse. Cessation counseling provided. //Leukocytosis on admission. 14.5 on admission. Improving 12.7. This is likely reactive secondary to stress from STEMI. No signs of infection. Follow- up with primary care. Discharge Planning: Patient cleared by cardiology Discharge home in good condition, on heart healthy diet. Activity ad mani. Please see discharge medication reconciliation for medication list. Follow-up with cardiology and primary care as outpatient.
[2018-01-21 10:23] VITALS: PULSE 86
--- NOTE | 2018-01-21 17:20 | P.PNCA ---
Subjective Interval history: No events overnight Feels well No chest pain Physical Exam Vital signs: Vital Signs 01/20/18 17:56 01/20/18 19:00 01/20/18 20:00 Temperature 98.4 F Pulse Rate 60 54 L 58 L Respiratory Rate 19 Blood Pressure 107/71 Pulse Oximetry 98 01/20/18 21:00 01/20/18 22:00 01/20/18 23:00 Temperature 98.4 F Pulse Rate 54 L 50 L 50 L Respiratory Rate 19 Blood Pressure 100/61 Pulse Oximetry 98 01/21/18 00:00 01/21/18 01:00 01/21/18 02:00 Temperature Pulse Rate 52 L 53 L 61 Respiratory Rate Blood Pressure Pulse Oximetry 01/21/18 03:00 01/21/18 04:00 01/21/18 05:49 Temperature 98.5 F Pulse Rate 60 53 L 54 L Respiratory Rate 19 Blood Pressure 105/63 Pulse Oximetry 98 01/21/18 06:00 01/21/18 07:00 01/21/18 07:33 Temperature 97.9 F Pulse Rate 55 L 50 L 63 Respiratory Rate 18 Blood Pressure 110/66 Pulse Oximetry 100 01/21/18 08:00 01/21/18 09:00 Temperature Pulse Rate 56 L 86 Respiratory Rate Blood Pressure Pulse Oximetry Intake & Output 01/20/18 01/21/18 01/21/18 18:59 06:59 18:59 Intake Total 1800 / 1800 1420 / 1420 Output Total 1200 / 1200 1450 / 1450 Balance 600 / 600 -30 / -30 Weight 100.5 kg Intake: IV 1000 / 1000 Oral 1800 / 1800 420 / 420 Output: Urine 1200 / 1200 1450 / 1450 Other: Date of Last Bowel Movement 01/19/18 Narrative: GENERAL: Patient sitting up in bed. Appears comfortable. Alert and oriented 4. SKIN: Warm and dry. HEAD: Normocephalic. EYES: No scleral icterus. No injection or drainage. NECK: Supple, trachea midline. No JVD. CARDIOVASCULAR: Regular rate and rhythm without murmurs, gallops, or rubs. RESPIRATORY: Breath sounds equal bilaterally. No accessory muscle use. GASTROINTESTINAL: Abdomen soft, non-tender, nondistended. MUSCULOSKELETAL: No cyanosis, or edema. BACK: Nontender without obvious deformity. No CVA tenderness. Assessment and Plan - Assessment (1) STEMI (ST elevation myocardial infarction) Code(s): I21.3 - ST elevation (STEMI) myocardial infarction of unspecified site Status: Acute (2) CAD (coronary artery disease) Code(s): I25.10 - Atherosclerotic heart disease of [place] coronary artery without angina pectoris Status: Acute (3) HTN (hypertension) Code(s): I10 - Essential (primary) hypertension Status: Acute (4) Tobacco abuse Code(s): Z72.0 - Tobacco use Status: Acute - Plan 1) Acute inferior STEMI S/p DESx3 to RCA/PLB ASA/Brilinta/BB/ARB/Statin 2) Tobacco cessation 3) Mild leukocytosis Most likely acute phase reactant 4) EF 50-55% 5) Cardiovascularly stable for discharge Will follow up with me in the office in a few weeks
== END 2018-01-21 09:57 | disposition home or self-care (01) ==
LOC: NEPE 12:13 → NEDA 12:30 → HCVI 14:51 → HCPC 01-20 08:33
PROVIDERS: ADMIT Internal Medicine; ATTEND Internal Medicine

== ENCOUNTER 2018-01-30 11:39 | Inpatient (IN) ==
--- NOTE | 2018-01-30 12:25 | XR ---
EXAM DATE: 01/30/2018 12:13 PM EDT AGE/SEX: 52 years / Male INDICATIONS: . Chest pain CLINICAL DATA: This is the patient's initial encounter. Patient reports that signs and symptoms have been present for 4 - 6 days and indicates a pain score of 4/10. MEDICAL/SURGICAL HISTORY: Cardiovascular disease. Coronary artery stent. COMPARISON: No prior exams available for comparison. FINDINGS: PA and lateral views of the chest demonstrate the lungs to be symmetrically aerated without evidence of mass, infiltrate or effusion. The cardiomediastinal contours are unremarkable. Old rib fractures. CONCLUSION: No acute cardiopulmonary disease Electronically signed by: Earnest Ross MD 01/30/2018 12:23 PM EDT
--- NOTE | 2018-01-30 12:38 | ED ---
HPI General Chief complaint: Chest Pain Stated complaint: Dr sent/Chest Complaint Time Seen by Provider: 01/30/18 12:16 Source: patient Mode of arrival: ambulatory History of Present Illness HPI narrative: 52 y/o male presents with complaint of 3 day history of severe lower back pain. Pain is constant in nature and worse when lying flat. He also complains of intermitted left-sided chest pain that lasts 10-15 secs and is self resolving. He had a heart attack 11 days ago with subsequent placement of stents and start of new medications. 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 He denies any fever, chills, SOB, diaphoresis, palpitations, dizziness, nausea, vomiting, or changes in urination patterns at this time. Related Data Previous Rx's Medication Instructions Recorded aspirin 81 mg PO DAILY 30 Days #30 tab 01/21/18 lisinopril 5 mg PO DAILY 30 Days #30 tab 01/21/18 metoprolol tartrate 12.5 mg PO BID 30 Days #30 tab 01/21/18 ticagrelor [Brilinta] 90 mg PO BID 30 Days #60 tab 01/21/18 Allergies Allergy/AdvReac Type Severity Reaction Status Date / Time latex Allergy Anaphylaxis Verified 01/19/18 12:15 Review of Systems ROS: all other systems reviewed are negative [facility] Medical History Medical History Coronary artery disease (Acute) Patient denies medical problems (Acute) Surgical History Surgical History No history of previous surgery (Acute) S/P cardiac catheterization (Acute) Family History Family History Father Coronary artery disease Mother Colon cancer Social History Social History Substance History: Unable to Obtain Second Hand Smoke Exposure: No Smoking Status: Unknown if ever smoked Tobacco Type: Cigarettes How Often Do You Have a Drink Containing Alcohol: Unable to Obtain Recent Travel in [facility] within the Last 8 Weeks: No Recent Out of Country Travel within the Last 8 Weeks: No Immunization History Tetanus Immunization: Unsure Hx Influenza Vaccine This Season: Unable to Assess Exam Narrative Exam Narrative: GENERAL: Well-developed, well-nourished male. In Mild distress. SKIN: Warm and Mildly diaphoretic. Erythematous rash present on right forearm. HEAD: Atraumatic. Normocephalic. EYES: Pupils equal and round. No scleral icterus. No injection or drainage. ENT: No nasal bleeding or discharge. Mucous membranes pink and moist. NECK: Trachea midline. No JVD. CARDIOVASCULAR: Regular rate and rhythm. RESPIRATORY: No accessory muscle use. Clear to auscultation. Breath sounds equal bilaterally. GASTROINTESTINAL: Abdomen soft, non-tender, nondistended. Hepatic and splenic margins not palpable. MUSCULOSKELETAL: Extremities without clubbing, cyanosis, or edema. No obvious deformities. Lower back paraspinal muscles tender to palpation bilaterally. NEUROLOGICAL: Awake and alert. No obvious cranial nerve deficits. Motor grossly within normal limits. Five out of 5 muscle strength in the arms and legs. Normal speech. PSYCHIATRIC: Appropriate mood and affect; insight and judgment normal. Course Initial Documented Vital Signs Temperature 97.7 F 01/30/18 11:46 Pulse Rate 69 01/30/18 11:46 Respiratory Rate 18 01/30/18 11:46 Blood Pressure 117/72 01/30/18 11:46 Pulse Oximetry 98 01/30/18 11:46 Last Documented Vital Signs Temperature 97.7 F 01/30/18 11:46 Pulse Rate 76 01/30/18 13:57 Respiratory Rate 18 01/30/18 13:57 Blood Pressure 130/73 01/30/18 13:57 Pulse Oximetry 99 01/30/18 13:57 Medical Decision Making [facility] Narrative Medical decision making narrative: Case was discussed with Dr. Case of cardiology who states that patient's primary care doctor was the one that sent him in, and there is concern of possible retroperitoneal bleeding or other causes of back pain. Patient is currently on Brilinta.Lab work was fairly unremarkable and troponins are negative. EKG does show T-wave inversions in the inferior and lateral leads. Case was discussed with Dr. Case who would like to keep him medically and have him admitted to medicine, planning to do catheterization tomorrow. CT of the abdomen pelvis did not show any signs of acute intra-abdominal processes or retroperitoneal process.Case is discussed with Dr. Emery for admission. Medical Screen Exam Complete: Yes Emergency Medical Condition: Yes Differential Diagnosis Differential Diagnosis: Muscular skeletal versus retroperitoneal bleed versus kidney stones Lab Data Lab results reviewed: Yes I reviewed the patient's lab results. Result diagrams: 01/30/18 12:20 01/30/18 12:20 Lab Results 01/30/18 01/30/18 01/30/18 Range/Units 12:20 12:20 12:20 WBC 12.5 H (4.0-11.0) th/mm3 RBC 5.28 (4.50-5.90) mil/mm3 Hgb 16.5 (13.0-17.0) gm/dL Hct 48.6 (39.0-51.0) % MCV 92.0 (80.0-100.0) fL MCH 31.3 (27.0-34.0) pg MCHC 34.0 (32.0-36.0) % RDW 13.2 (11.6-17.2) % Plt Count 359 D (150-450) th/mm3 MPV 9.5 (7.0-11.0) fL Neut % (Auto) 63.2 (16.0-70.0) % Lymph % (Auto) 24.8 (9.0-44.0) % [place] % (Auto) 7.7 (0.0-8.0) % Eos % (Auto) 3.7 (0.0-4.0) % Baso % (Auto) 0.6 (0.0-2.0) % Neut # (Auto) 7.9 H (1.8-7.7) th/mm3 Lymph # (Auto) 3.1 (1.0-4.8) th/mm3 [place] # (Auto) 1.0 H (0.0-0.9) th/mm3 Eos # (Auto) 0.5 H (0.0-0.4) th/mm3 Baso # (Auto) 0.1 (0.0-0.2) th/mm3 WBC Differential . Differential Comment Auto diff final PT 10.2 (9.8-11.6) sec INR 1.0 Ratio APTT 33.1 H (24.3-30.1) sec Sodium 138 (136-145) meq/L Potassium 4.3 (3.5-5.1) meq/L Chloride 104 (98-107) meq/L Carbon Dioxide 24.4 (21.0-32.0) meq/L Anion Gap 10 (5-15) meq/L BUN 17 (7-18) mg/dL Creatinine 0.93 (0.60-1.30) mg/dL Estimated GFR 85 L (>89) mL/min Random Glucose 86 (74-106) mg/dL Calcium 9.4 (8.5-10.1) mg/dL Total Creatine Kinase (39-308) U/L Troponin I Less than 0.02 L (0.02-0.05) ng/mL 01/30/18 Range/Units 12:20 WBC (4.0-11.0) th/mm3 RBC (4.50-5.90) mil/mm3 Hgb (13.0-17.0) gm/dL Hct (39.0-51.0) % MCV (80.0-100.0) fL MCH (27.0-34.0) pg MCHC (32.0-36.0) % RDW (11.6-17.2) % Plt Count (150-450) th/mm3 MPV (7.0-11.0) fL Neut % (Auto) (16.0-70.0) % Lymph % (Auto) (9.0-44.0) % [place] % (Auto) (0.0-8.0) % Eos % (Auto) (0.0-4.0) % Baso % (Auto) (0.0-2.0) % Neut # (Auto) (1.8-7.7) th/mm3 Lymph # (Auto) (1.0-4.8) th/mm3 [place] # (Auto) (0.0-0.9) th/mm3 Eos # (Auto) (0.0-0.4) th/mm3 Baso # (Auto) (0.0-0.2) th/mm3 WBC Differential Differential Comment PT (9.8-11.6) sec INR Ratio APTT (24.3-30.1) sec Sodium (136-145) meq/L Potassium (3.5-5.1) meq/L Chloride (98-107) meq/L Carbon Dioxide (21.0-32.0) meq/L Anion Gap (5-15) meq/L BUN (7-18) mg/dL Creatinine (0.60-1.30) mg/dL Estimated GFR (>89) mL/min Random Glucose (74-106) mg/dL Calcium (8.5-10.1) mg/dL Total Creatine Kinase 71 (39-308) U/L Troponin I (0.02-0.05) ng/mL Imaging Data Attestation: I personally reviewed and interpreted this imaging study as follows : Radiologist's impression: Chest X-Ray 01/30/18 11:58 CONCLUSION: No acute cardiopulmonary disease Abdomen/Pelvis CT 01/30/18 12:40 CONCLUSION: 1. No specific abnormality is identified to explain the patient's clinical symptoms. No acute abnormality is identified in the abdomen or pelvis. 2. Moderate to severe atherosclerotic disease. 3. 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 ECG Data Attestation: I personally reviewed and interpreted this ECG as follows: Interpretation: Rhythm at a rate of 60 bpm. There are T-wave inversions notable in the inferior and lateral leads. No acute ST elevations Discharge Plan Discharge Disposition Patient Disposition: 30 Still Patient Discharge Condition Condition: Stable Discharge Details Anticipated Discharge Date: 01/30/18 Diagnosis: Unstable angina pectoris Physicians Team ED Provider: Lavelle Paniagua Primary Care Provider: Primary Care Cesilia Pleitez Rxs /Orders / Referrals /Forms Prescriptions: No Action aspirin 81 mg Tablet,Chewable 81 mg PO DAILY 30 Days Qty: 30 RF: 0 lisinopril 5 mg Tablet 5 mg PO DAILY 30 Days Qty: 30 RF: 0 metoprolol tartrate 25 mg Tablet 12.5 mg PO BID 30 Days Qty: 30 RF: 0 ticagrelor [Brilinta] 90 mg Tablet 90 mg PO BID 30 Days Qty: 60 RF: 0 Discharge Instructions Patient Printed Instructions: Chest Pain (ED), Heart Catheterization (DC) Discharge Interventions Interventions: Vital Signs Last Done: 01/30/18 13:57 Status ED Status: With Doctor
[2018-01-30] MEDS ORDERED: Morphine Sulfate Inj 2 MG/ML Vial IV.PUSH ONE (12:44)
[2018-01-30 12:45] LABS: Baso # (Auto) 0.1 th/mm3 (0.0-0.2); Baso % (Auto) 0.6 % (0.0-2.0); Eos # (Auto) 0.5 th/mm3 (0.0-0.4); Eos % (Auto) 3.7 % (0.0-4.0); Hematocrit 48.6 % (39.0-51.0); Hemoglobin 16.5 gm/dL (13.0-17.0); Lymph # (Auto) 3.1 th/mm3 (1.0-4.8); Lymph % (Auto) 24.8 % (9.0-44.0); Mean Corpuscular Hemoglobin 31.3 pg (27.0-34.0); Mean Platelet Volume 9.5 fL (7.0-11.0); Mono % (Auto) 7.7 % (0.0-8.0); Neut # (Auto) 7.9 th/mm3 (1.8-7.7); Neut % (Auto) 63.2 % (16.0-70.0); Platelet Count 359 th/mm3 (150-450); Red Blood Count 5.28 mil/mm3 (4.50-5.90); Red Cell Distribution Width 13.2 % (11.6-17.2); White Blood Count 12.5 th/mm3 (4.0-11.0)
[2018-01-30 12:53] LABS: Activated Partial Thrombo Time 33.1 sec (24.3-30.1); Prothrombin Time 10.2 sec (9.8-11.6)
[2018-01-30 13:04] LABS: Anion Gap 10 meq/L (5-15); Blood Urea Nitrogen 17 mg/dL (7-18); Calcium 9.4 mg/dL (8.5-10.1); Carbon Dioxide 24.4 meq/L (21.0-32.0); Chloride 104 meq/L (98-107); Glomerular Filtration Rate 85 mL/min (>89); Glucose,Random 86 mg/dL (74-106); Potassium 4.3 meq/L (3.5-5.1); Sodium 138 meq/L (136-145)
--- NOTE | 2018-01-30 14:54 | CT ---
EXAM DATE: 01/30/2018 2:45 PM EDT AGE/SEX: 52 years / Male INDICATIONS: Back pain for 3 days. Cardiac catheter done 10 days ago CLINICAL DATA: This is the patient's initial encounter. Patient reports that signs and symptoms have been present for 1 week and indicates a pain score of 3/10. MEDICAL/SURGICAL HISTORY: Cardiovascular disease. Hypertension. Coronary artery stent. ORAL CONTRAST: No oral contrast ingested. RADIATION DOSE: 7.76 CTDI (mGy) COMPARISON: No prior exams available for comparison. TECHNIQUE: Multiple contiguous axial images were obtained through the abdomen and pelvis following b olus infusion of 94 ml Omnipaque 350 (iohexol) nonionic water-soluble contrast as a single exam dos e. No oral contrast ingested. Using automated exposure control and adjustment of the mA and/or kV ac cording to patient size, radiation dose was kept as low as reasonably achievable to obtain optimal di agnostic quality images. DICOM format image data is available electronically for review and comparis on. FINDINGS: Lower chest: There is atelectasis at the right base. Hepatobiliary: No focal liver lesion is identified. Hepatic vasculature demonstrates no abnormality. No calcified gallstones are present. Kidneys: No hydronephrosis, stone, or mass. Adrenal Glands: Within normal limits. Spleen: Within normal limits. Pancreas: Within normal limits. Vascular: The aorta is nonaneurysmal. There is moderate to severe atherosclerotic disease. Bowel/Mesentery: The stomach and small bowel demonstrate no abnormality. No acute colon abnormality i s seen. There is no free intraperitoneal air or fluid. Appendix is normal. Abdominal Wall: No hernia is visualized. Retroperitoneum: No lymphadenopathy. Bladder: No wall thickening or mass. Reproductive: Prostate gland calcifications are present. Inguinal: No lymphadenopathy or hernia. Musculoskeletal: There is degenerative disc disease at L4-L5 and L5-S1. Nondisplaced bilateral pars d efects are present at L5. CONCLUSION: 1. No specific abnormality is identified to explain the patient's clinical symptoms. No acute abnorm ality is identified in the abdomen or pelvis. 2. Moderate to severe atherosclerotic disease. 3. 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 Electronically signed by: John Schaeffer MD 01/30/2018 2:53 PM EDT
--- NOTE | 2018-01-30 15:43 | P.HPIM ---
History of Present Illness Primary Care Physician: No Primary Care Physician Chief Complaint: chest pain History of Present Illness: patient is a 52 y/o male with recent STEMI-ten days ago- s/p cardiac cath and stent placement- who presented to ER with chest and back pain. he says that since he left the hospital he's had on and off chest pain. pain was described as ' burning type of pain' with no radiation and no accompanied nausea, dizziness, sweating.back pain is mild to moderate in intensity.he says that he was started on statin but he had a reaction with some rash to the arms for which his stain was discontinued. he says that for the past few days he's had some back pain. he was seen by PCP today and after his EKG was done he was advised to come back to the hospital.he was chest pain free at the time of my evaluation. Review of Systems All other systems reviewed negative except as stated in HPI PMFSH - History History Provided By: Patient - Medical History Medical History: Medical History (Last Reviewed 01/30/18 @ 12:56 by Lavelle Paniagua MD) Coronary artery disease Patient denies medical problems - Surgical History Surgical History: Surgical History (Last Reviewed 01/30/18 @ 12:56 by Lavelle Paniagua MD) No history of previous surgery S/P cardiac catheterization - Family History Family History: Family History (Last Reviewed 01/30/18 @ 12:56 by Lavelle Paniagua MD) Father Coronary artery disease Mother Colon cancer - Tobacco History Second Hand Smoke Exposure: No Smoking Status: Unknown if ever smoked Tobacco Type: Cigarettes - Alcohol History How Often Do You Have a Drink Containing Alcohol: Unable to Obtain - Substance Use History Substance History: Unable to Obtain - Travel History Recent Travel in the [place] Within the Last 8 Weeks: No Recent Travel Out of the Country Within the Last 8 Weeks: No - Immunization History Tetanus Immunization: Unsure Hx Influenza Vaccine This Season: Unable to Assess Medications and Allergies Allergies Allergy/AdvReac Type Severity Reaction Status Date / Time latex Allergy Anaphylaxis Verified 01/19/18 12:15 Exam Vital signs: Vital Signs 01/30/18 11:46 01/30/18 13:57 Temperature 97.7 F Pulse Rate 69 76 Respiratory Rate 18 18 Blood Pressure 117/72 130/73 Pulse Oximetry 98 99 Intake & Output 01/29/18 01/30/18 01/30/18 18:59 06:59 18:59 Weight 53.07 kg - Constitutional no acute distress - Routine Neck Exam Present: supple, full ROM - Routine Respiratory Exam Present: CTA bilaterally - Routine Cardiovascular Exam Present: RRR - Routine Abdominal Exam Present: soft - Routine Extremities Exam Comments: no pedal edema. - Routine Neurological Exam Present: alert, oriented X3 Results - Labs CBC & Chem 7: 01/30/18 12:20 01/30/18 12:20 Labs: Short CBC 01/30/18 Range/Units 12:20 WBC 12.5 H (4.0-11.0) th/mm3 Hgb 16.5 (13.0-17.0) gm/dL Hct 48.6 (39.0-51.0) % Plt Count 359 D (150-450) th/mm3 BMP 01/30/18 12:20 Sodium 138 Potassium 4.3 Chloride 104 Carbon Dioxide 24.4 BUN 17 Creatinine 0.93 Calcium 9.4 Cardiac Enzymes 01/30/18 01/30/18 Range/Units 12:20 12:20 Total Creatine Kinase 71 (39-308) U/L Troponin I Less than 0.02 L (0.02-0.05) ng/mL - Imaging Impressions Chest X-Ray 01/30/18 11:58 CONCLUSION: No acute cardiopulmonary disease Abdomen/Pelvis CT 01/30/18 12:40 CONCLUSION: 1. No specific abnormality is identified to explain the patient's clinical symptoms. No acute abnormality is identified in the abdomen or pelvis. 2. Moderate to severe atherosclerotic disease. 3. 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 Caprini VTE Risk Assessment Caprini VTE Risk Assessment: Moderate/High Risk (score >= 2) VTE Pharmacological Exception Reason: Postop bleeding Caprini Risk Assessment Model: Point Value = 1 Point Value = 2 Point Value = 3 Point Value = 5 Age 41-60 Minor surgery BMI > 25 kg/m2 Swollen legs Varicose veins or History of unexplained or recurrent spontaneous Oral contraceptives or hormone replacement Sepsis (< 1 month) Serious lung disease, including pneumonia (< 1 month) Abnormal pulmonary function Acute myocardial infarction Congestive heart failure (< 1 month) History of inflammatory bowel disease Medical patient at bed rest Age 61-74 Arthroscopic surgery Major open surgery (> 45 min) Laparoscopic surgery (> 45 min) Malignancy Confined to bed (> 72 hours) Immobilizing plaster cast Central venous access Age >= 75 History of VTE Family history of VTE Factor V Leiden Prothrombin [id number] Lupus anticoagulant Anticardiolipin antibodies Elevated serum homocysteine Heparin-induced thrombocytopenia Other congenital or acquired thrombophilia Stroke (< 1 month) Elective arthroplasty Hip, pelvis, or leg fracture Acute spinal cord injury (< 1 month) Prophylaxis Regimen: Total Risk Factor Score Risk Level Prophylaxis Regimen 0-1 Low Early ambulation 2 Moderate Order ONE of the following: *Sequential Compression Device (SCD) *Heparin 5000 units SQ BID 3-4 Higher Order ONE of the following medications: *Heparin 5000 units SQ TID *Enoxaparin/Lovenox 40 mg SQ daily (WT < 150 kg, CrCl > 30 mL/min) *Enoxaparin/Lovenox 30 mg SQ daily (WT < 150 kg, CrCl > 10-29 mL/min) *Enoxaparin/Lovenox 30 mg SQ BID (WT < 150 kg, CrCl > 30 mL/min) AND/OR *Sequential Compression Device (SCD) 5 or more Highest Order ONE of the following medications: *Heparin 5000 units SQ TID (Preferred with Epidurals) *Enoxaparin/Lovenox 40 mg SQ daily (WT < 150 kg, CrCl > 30 mL/min) *Enoxaparin/Lovenox 30 mg SQ daily (WT < 150 kg, CrCl > 10-29 mL/min) *Enoxaparin/Lovenox 30 mg SQ BID (WT < 150 kg, CrCl > 30 mL/min) AND *Sequential Compression Device (SCD) Assessment and Plan - Plan A/P -chest pain with recent inferior STEMI-S/p DESx3 will trend the cardiac enzymes and continue ASA/Brilinta/metoprolol and lisinopril. will consult cardiology. NPO after midnight- for possible cath tomorrow. of note had an allergic reaction to statin for which it was discontinued. -back pain- now has improved CT of the abdomen with no acute abnormality- continue with pain control. Discussed Condition With: ER physician and the patient. Discharge Planning: pending cardiac w/u.
[2018-01-30] MEDS ORDERED: Morphine Inj 4 MG/ML Vial IV.PUSH PRN (15:45)
[2018-01-30] MEDS: Metoprolol Tartrate 25 MG Tablet PO SCH (20:31)
[2018-01-30] MEDS: Sod Chloride 0.9% Inj 1,000 ML IV.CONT SCH (20:32)
[2018-01-30] MEDS ORDERED: Sod Chloride 0.9% Inj 1,000 ML IV.CONT SCH (23:00)
--- NOTE | 2018-01-31 01:16 | MB ---
cc: Roque Case DO DATE: 01/30/2018 REASON FOR CONSULTATION: Chest pain, back pain. HISTORY OF PRESENT ILLNESS: Kevin Kay is a pleasant 52-year-old male who previously was here as a STEMI 10 days ago and underwent cardiac catheterization and PCI of multiple areas of his RCA. Afterwards, he did well and was discharged home. He was seen in Dr. Alvarado's office, and there was concern for multiple issues, and so Dr. Alvarado called me. Apparently, Mr. Kay has had some back pain in the lower part of the right side of his back, and there was a concern for possible retroperitoneal bleed. He was also started on a statin and had a rash over his arms, and so the statin was discontinued on Saturday, and since then the rash has gotten somewhat better. He has also had some chest pain, which he describes as a burning-type pain in his chest, more on the left side than the right. An EKG was done, and there was concern for significant T-wave inversions. In discussing with Dr. Alvarado, I felt that the patient should come into the emergency room and be evaluated. On arrival, he was seen and was hemodynamically stable and not currently having chest pain. PAST MEDICAL HISTORY: Coronary artery disease. PAST SURGICAL HISTORY: Cardiac catheterization (01/19/2018): Left main: Normal-sized vessel. LAD 60%-70% disease in the mid portion with 80%-90% disease in the apical. Left circumflex has mild luminal irregularities and gives off 2 obtuse marginals which have 30% disease. RCA has a 70% proximal, 80% distal, and 99% in the posterior lateral. He underwent PCI of his RCA with 3 Morris drug-eluting stents (proximal RCA 2.75 x 12, distal RCA 2.5 x 12, mid posterolateral branch 2.25 x 8). ALLERGIES: 1. LATEX. 2. STATINS. MEDICATIONS: 1. Aspirin 81 mg daily. 2. Lisinopril 5 mg daily. 3. Metoprolol tartrate 12.5 mg b.i.d. 4. Brilinta 90 mg b.i.d FAMILY HISTORY: Father had a myocardial infarction in his 50s. SOCIAL HISTORY: The patient previously smoked but is attempting to quit. He denies alcohol or drug abuse. REVIEW OF SYSTEMS: Fourteen systems were reviewed including osteopathic. Pertinent positives and negatives above, otherwise negative. PHYSICAL EXAMINATION: VITAL SIGNS: Temperature 97.7, heart rate 69, blood pressure 117/72, respirations 18, pulse oximetry 98% on room air. GENERAL: The patient appears well. No acute distress. Alert, awake, and oriented x3. HEENT: Extraocular muscles intact. Mucous membranes moist. NECK: Supple. No JVD at 45 degrees. No carotid bruits heard bilaterally. Carotid upstroke is brisk in nature. HEART: Regular rate and rhythm. Positive first and second heart sounds with no noted murmurs, gallops, or rubs. LUNGS: Clear to auscultation bilaterally. No wheezes, rales, or rhonchi. ABDOMEN: Soft, nontender, nondistended. No organomegaly noted. EXTREMITIES: No clubbing, cyanosis, or edema. Femoral and distal pulses intact bilaterally. NEUROLOGIC: No focal deficits. SKIN: Warm, dry, and intact. OSTEOPATHIC: No kyphoscoliosis or lordosis but does have paraspinal tender points along the lumbar region, more specifically on the right side. LABORATORY DATA: Hemoglobin 16.5, hematocrit 48.6, platelets 359. Potassium 4.3, BUN 17, creatinine 0.93. Troponin less than 0.02. Electrocardiogram (01/30/2018 at 1202): Sinus bradycardia, T-wave inversions anterolaterally and inferiorly, consider ischemia. IMPRESSIONS: 1. Chest pain with an abnormal EKG, concerning for possible ischemia. 2. Coronary artery disease with previous ST-elevation myocardial infarction (01/19/2018) with 3 stents placed to the RCA as above and residual LAD disease. 3. Back pain, most likely statin-induced. 4. STATIN ALLERGY. RECOMMENDATIONS: 1. Mr. Kay presented with multiple complaints to the outpatient office of Dr. Alvarado. 2. Overall, I believe that his back pain is not likely to be retroperitoneal bleed as his case was done from a radial access site. There is always a possibility of a spontaneous retroperitoneal bleed, and so a CT scan will be ordered to rule out pathology. More than likely, his back pain is due to statin myalgias. CPK will also be ordered. 3. He had a significant rash on his arms, most likely due to statins, and this has since decreased since stopping his Lipitor. 4. His chest pain is somewhat atypical, but he does have known residual LAD disease. EKG shows possible ischemia of the anterior region. We do not have a previous EKG to evaluate since his first EKG showed accelerated idioventricular rhythm, so unsure of what his belkofski EKG would be after his STEMI. 5. Because of the chest pain and the abnormal EKG, I believe that he should undergo PCI of his LAD as the lesions are somewhat significant. 6. We attempted to treat his LAD medically, but obviously, he has continued chest pain and also an abnormal EKG, and so I believe that he should undergo intervention of his LAD with a plan for tomorrow. 7. Considerations will have to be made for a PCSK9 inhibitor outpatient due to his statin intolerance. 9. He will continue on aspirin, Brilinta, metoprolol, and lisinopril therapy. 10. Further recommendations will be made based on the hospital course. Thank you for allowing me to see Kevin Kay. If there are any questions, please do not hesitate to call. Roque Case DO VGDimitri/rm , 11:10 PM , 11:26 PM
[2018-01-31] MEDS ORDERED: ALPRAZolam 0.25 MG Tablet PO ONE (02:09)
[2018-01-31] MEDS: Lisinopril 5 MG Tablet PO SCH (10:20)
[2018-01-31] MEDS: Metoprolol Tartrate 25 MG Tablet PO SCH ×2 (10:20→21:16)
--- NOTE | 2018-01-31 11:46 | P.PN ---
Subjective Interval history: Follow-up atypical chest pain January 31, 2018-patient seen and examined, has a rash likely a drug reaction from morphine. Complains of itching. Protect his airways. Case discussed with cardiology Physical Exam Vital signs: Vital Signs 01/30/18 11:46 01/30/18 13:57 01/30/18 20:00 Temperature 97.7 F 98.0 F Pulse Rate 69 76 72 Respiratory Rate 18 18 16 Blood Pressure 117/72 130/73 139/82 Pulse Oximetry 98 99 98 01/30/18 21:00 01/30/18 22:00 01/30/18 23:00 Temperature Pulse Rate 62 54 L 66 Respiratory Rate Blood Pressure Pulse Oximetry 01/31/18 00:00 01/31/18 00:35 01/31/18 01:00 Temperature 97.9 F Pulse Rate 62 52 L 54 L Respiratory Rate 16 Blood Pressure 114/59 L Pulse Oximetry 95 01/31/18 02:00 01/31/18 03:00 01/31/18 04:00 Temperature 98.0 F Pulse Rate 56 L 66 50 L Respiratory Rate 16 Blood Pressure 118/79 Pulse Oximetry 98 01/31/18 05:00 01/31/18 07:00 Temperature 98.2 F Pulse Rate 52 L 76 Respiratory Rate 16 Blood Pressure 122/66 Pulse Oximetry 94 L Intake & Output 01/30/18 01/31/18 01/31/18 18:59 06:59 18:59 Intake Total 240 / 240 Output Total 1400 / 1400 Balance -1160 / -1160 Weight 53.07 kg 97.2 kg Intake: Oral 240 / 240 Output: Urine 1400 / 1400 Other: Weight On Admission 53.07 kg Narrative: GENERAL: NAD SKIN: Warm and dry. drug reaction rash covering torso/abdomen/back /thighs HEAD: Normocephalic. EYES: No scleral icterus. No injection or drainage. NECK: Supple, trachea midline. No JVD or lymphadenopathy. CARDIOVASCULAR: Regular rate and rhythm without murmurs, gallops, or rubs. RESPIRATORY: Breath sounds equal bilaterally. No accessory muscle use. GASTROINTESTINAL: Abdomen soft, non-tender, nondistended. MUSCULOSKELETAL: No cyanosis, or edema. BACK: Nontender without obvious deformity. No CVA tenderness. Results - Labs CBC & Chem 7: 01/30/18 12:20 01/30/18 12:20 Laboratory Results - last 24 hr 01/30/18 01/30/18 01/30/18 12:20 12:20 12:20 WBC 12.5 H RBC 5.28 Hgb 16.5 Hct 48.6 MCV 92.0 MCH 31.3 MCHC 34.0 RDW 13.2 Plt Count 359 D MPV 9.5 Neut % (Auto) 63.2 Lymph % (Auto) 24.8 Vil[place] % (Auto) 7.7 Eos % (Auto) 3.7 Baso % (Auto) 0.6 Neut # (Auto) 7.9 H Lymph # (Auto) 3.1 Vilas # (Auto) 1.0 H Eos # (Auto) 0.5 H Baso # (Auto) 0.1 WBC Differential . Differential Comment Auto diff final PT 10.2 INR 1.0 APTT 33.1 H Sodium 138 Potassium 4.3 Chloride 104 Carbon Dioxide 24.4 Anion Gap 10 BUN 17 Creatinine 0.93 Estimated GFR 85 L Random Glucose 86 Calcium 9.4 Total Creatine Kinase Troponin I Less than 0.02 L 01/30/18 01/30/18 01/30/18 12:20 15:50 23:05 WBC RBC Hgb Hct MCV MCH MCHC RDW Plt Count MPV Neut % (Auto) Lymph % (Auto) [place] % (Auto) Eos % (Auto) Baso % (Auto) Neut # (Auto) Lymph # (Auto) [place] # (Auto) Eos # (Auto) Baso # (Auto) WBC Differential Differential Comment PT INR APTT Sodium Potassium Chloride Carbon Dioxide Anion Gap BUN Creatinine Estimated GFR Random Glucose Calcium Total Creatine Kinase 71 Troponin I Less than 0.02 L 0.02 - Imaging Impressions Chest X-Ray 01/30/18 11:58 CONCLUSION: No acute cardiopulmonary disease Abdomen/Pelvis CT 01/30/18 12:40 CONCLUSION: 1. No specific abnormality is identified to explain the patient's clinical symptoms. No acute abnormality is identified in the abdomen or pelvis. 2. Moderate to severe atherosclerotic disease. 3. 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 Assessment and Plan - Plan 52-year-old man with Atypical chest pain Prior history of STEMI status post MANPREET x 3 Currently on aspirin/Brilinta/Lopressor and lisinopril Cardiology to proceed with left heart catheterization today January 31, 2018 Off Statin secondary to allergy reaction Drug rash eruption More likely secondary to morphine Continue Benadryl as needed History of Chronic Back pain stable CT abdomen/Pelvis noted
[2018-01-31] MEDS ORDERED: Heparin 10,000 UNITS/10 ML Vial (for IV use) ONE ×2 (11:53→12:32)
[2018-01-31] MEDS ORDERED: Iohexol 350 MG/ML 50 ML Vial (for Cath Lab) IVCONTRAST ONE (11:54)
[2018-01-31] MEDS ORDERED: Iohexol 350 MG/ML 100 ML Vial (for Cath Lab) IVCONTRAST ONE (11:54)
[2018-01-31] MEDS ORDERED: Heparin/NS PF Inj 1,000 ML ONE (11:58)
[2018-01-31] MEDS ORDERED: fentaNYL Citrate Inj 100 MCG/2 ML Ampul ONE (12:06)
[2018-01-31] MEDS ORDERED: MethylPREDNISolone Sod Succinate Inj 125 MG/2 ML Vial ONE (13:16)
[2018-01-31] MEDS ORDERED: Misc Info for Pharmacy OTHER STA (13:46)
--- NOTE | 2018-01-31 13:48 | CATHPROC ---
"[employer] HIS Report Study Information Study Number Admission Scheduled Start Study Start [id number] Jan 30 2018 3:46PM 01/31/2018 Jan 31 2018 11:53AM [place] [employer] Cardiac Catheterization Admit Source Facility Department Other [facility] - Child Development Associate Teacher Physician and Clinical Staff Initial Roque Yousif Mobile Device Engineer Tomas Byrne,NAYELI Other cathlab, cathlab Recorder Alessandra Lawrence,(R) Scrub Guicho Nguyễn RCIS(BS) Procedures Performed Procedure Location (Site) Vessel Name Coronary Angiograms LCA Left Coronary Coronary Angiograms RCA Right Coronary Coronary Angiograms LAD Dist Left Coronary Drug Eluting Inflatio LAD Dist Left Coronary Drug Eluting Inflatio LAD Mid Left Coronary L Heart Cath PTCA LAD Dist Left Coronary PTCA LAD Mid Left Coronary PTCA ADD ON'S Wire insertion Radial (right) Radial Art. Equipment Time Park Interpreter Description Size Mfg Part Number Used/Scraped WIRE, BALANCE MIDDLEWEIGHT [id number] 12:32 [employer] 190CM Used 190CM *[id number] TRANSDUCER, TRUWAVE [id number] 12:33 MONTEZ JUAREZ * Used W/STOCKCOCK *[id number] [id number] *[id number] 534-520T *[id number] 12:33 [employer] BLANKET,WARM AIR CCL * Used *[id number] 12:33 [employer] PACK, CCL CUSTOM * Used *[id number] 12:33 [employer] SUPPORT, ARTERIAL ADULT [id number] *[id number] Used [id number] 12:53 MEDTRONIC BALLOON, 2.0 X 12MM EUPHORA 12MM Used *[id number] BALLOON, 2.0 X 12MM NC [id number] 13:07 MEDTRONIC 12MM Used EUPHORA *[id number] BALLOON, 2.75 X 6MM NC [id number] 13:28 MEDTRONIC 6MM Used EUPHORA *[id number] BALLOON, 3.0 X 12MM NC [id number] 13:17 MEDTRONIC 12MM Used EUPHORA *[id number] 11:58 MEDTRONIC JR 4.0 DXTERITY CATHETER FR 5 Used *[id number] 13:04 MEDTRONIC STENT, 2.0 18MM TOÑA 2.0 X 18MM Used *[id number] 13:25 MEDTRONIC STENT, 2.75 8MM TOÑA 2.75 8MM Used *[id number] [id number] 13:15 MEDTRONIC STENT, 3.0 15MM TOÑA 3.0 15MM Used *[id number] 12:45 [employer]TR[employer]IC/AVE EBU 4.0 Z2 GUIDE CATHETER FR 6 Used *[id number] 12:30 Shipey 30 LIYAH INDEFLATOR Used *[id number] BAND, RADIAL COMPRESSION TR [id number] 13:35 [employer]LED[employer] 24CM Used SHORT 24 *[id number] 12:33 [employer]y WIRE, EXCHANGE 260CM 3MMJ 260CM Used *[id number] 12:33 NAMIC MANIFOLD, 4 PORT * Used *[id number] 12:33 NYCOMED OMNIPAQUE, 350 MG, 150ML 150ML [id number] Used 12:30 NYCOMED OMNIPAQUE, 350 MG, 50ML 50ML [id number] Used SHEATH, FR6 TRANSRADIAL [id number] 12:33 422 Group FR 6 Used SLENDER 10CM *[id number] Equipment Model, Serial, Lot Number and Expiration Data Description Model Number Serial Number Lot Number Expiration Date BALLOON, 2.0 X 12MM NC [id number] 01-24-2019 EUPHORA BALLOON, 2.75 X 6MM NC [id number] 03-16-2019 EUPHORA BALLOON, 3.0 X 12MM NC [id number] 06-11-2019 EUPHORA JR 4.0 DXTERITY CATHETER [id number] 08-08-2020 STENT, 2.0 18MM TOÑA [id number] 07-26-2019 STENT, 2.75 8MM TOÑA [id number] 06-11-2019 STENT, 3.0 15MM TOÑA [id number] 07-23-2019 WIRE, EXCHANGE 260CM 3MMJ [id number] 03-16-2019 History: Current Medications Medication Dosage/Unit Route Frequency Last Date/Time Taken Beta Justine BRILLINTA ASA History: Allergies Allergy Reaction latex Anaphylaxis Morphine rash History: Risk Factors Family History of Hypertension Dyslipidemia Previous VT Previous Heart Failure Premature CAD Yes Yes No Yes No Prior Valve Prior PCI Prior PCIDate Prior CABG Surgery No Yes 01/25/2018 No Cerebrovascular Peripheral Artery Chronic Lung On Dialysis Diabetes Disease Disease Disease No No No No No History: Risk Factors Selection Items Current Smoker History: Symptoms/Diagnosis Selection Items Chest pain History: CV Disease Selection Items Known CAD VT History: Stress Tests Stress or Imaging Studies Performed No History: Other Disease Selection Items CAD History: Other Current Smoker Method Yes Cigarettes Labs Hgb (g/dl) Hct (%) WBC (l/cumm) Platelets (thousands) 11.60-17.00 35.00-51.00 4.00-11.00 150.00-450.00 16.5 48.6 12.5 359 Glucose (mg/dl) BUN (mg/dl) Creatinine (mg/dl) BUN:Creatinine (1:x) 74.00-106.00 7.00-18.00 0.50-1.30 10.00-20.00 86 17 0.9 18.9 Na (meq/l) K (meq/l) 136.00-145.00 3.50-5.10 138 4.3 INR (PTT:PT) 0.90-1.10 1 Troponin I (ng/ml) CPK (u/l) CPK-MB (ng/ML) 0.02-0.05 26.00-308.00 0.50-3.60 0.02 71 Not Drawn Medication Medication Total Dose (Bolus/Oral) Medication Total Dosage/Unit 1% XYLOCAINE 20 mL BENADRYL 50 mg FENTANYL 50 mcg HEPARIN 5300 units NTG (IC) 200 mcg PEPCID 20 mg RADIAL COCKTAIL 5 mL (Bolus) SOLU-MEDROL 125 mg VERSED 3 mg Medications (Bolus/Oral) Medication Time Given Dosage/Unit Administered By Reason BENADRYL 01/31/2018 11:59:50 AM 50 mg Tomas Byrne 50 mg BENADRYL given in lab by Tomas Byrne RN in Right Antecubital via Peripheral IV. VERSED 01/31/2018 12:29:42 PM 2 mg Tomas Byrne 2 mg VERSED given in lab by Tomas Byrne RN via Peripheral IV. 1% XYLOCAINE 01/31/2018 12:34:42 PM 20 mL Roque Case 20 mL 1% XYLOCAINE given in lab by Roque Case in Right Radial via Subcutaneous. Ntg 200mcg Verapamil 2.5mg Heparin RADIAL COCKTAIL 01/31/2018 12:37:48 PM 5 mL (Bolus) Roque Case 2000U 5 mL (Bolus) RADIAL COCKTAIL given in lab by Roque Case via Radial. Using [Solution Name]. R bob: Ntg 200mcg Verapamil 2.5mg Heparin 2000U. heparin 3900 units HEPARIN 01/31/2018 12:49:06 PM 5300 units Tomas Byrne 5300 units HEPARIN given in lab by Tomas Byrne RN via Peripheral IV. VERSED 01/31/2018 1:08:00 PM 1 mg Tomas Byrne 1 mg VERSED given in lab by Tomas Byrne RN via Peripheral IV. FENTANYL 01/31/2018 1:14:44 PM 50 mcg Tomas Byrne 50 mcg FENTANYL given in lab by Tomas Byrne RN via Peripheral IV. NTG (IC) 01/31/2018 1:19:39 PM 200 mcg Roque Case 200 mcg NTG (IC) given by Roque Case via Intra-coronary. SOLU-MEDROL 01/31/2018 1:19:59 PM 125 mg Tomas Byrne 125 mg SOLU-MEDROL given by Tomas Byrne RN in Right Antecubital via Peripheral IV. PEPCID 01/31/2018 1:23:49 PM 20 mg Tomas Byrne 20 mg PEPCID given in lab by Tomas Byrne RN in Right Antecubital via Peripheral IV. Medication (Drip) Medication Time Given Dosage/Unit Concentration/Unit Diluent (ml) Solutio n IV Solutions 01/31/2018 11:53:42 AM 0 mL (IV) 500 NaCl .9 Patient arrived on IV Solutions in Right Antecubital via Peripheral IV. Pump/Drip Flow = 20 ml/hr usi ng NaCl .9. Initial Case Assessment Cardiovascular HR Rhythm NIBP Chest Pain 61 reg 116/75 2 Edema Present Skin color Skin None Normal Warm Circulatory - Right Pulses Dorsalis Pedis Femoral 2 2 Scale (0,1,2,3,4,d) Circulatory - Left Pulses Dorsalis Pedis Femoral 2 2 Scale (0,1,2,3,4,d) Circulatory - Lower Extremities Color Lower Right Color Lower Left Normal Normal Neurological State Oriented to time-place- Alert Moves all extremities person Respiration - General Respiration Rate SpO2 (%) (B/min) 21 98 Final Case Assessment Cardiovascular HR Rhythm NIBP Chest Pain 61 REG 132/83 2 Edema Present Skin color Skin None Normal Warm Circulatory - Right Pulses Dorsalis Pedis Femoral 2 2 Scale (0,1,2,3,4,d) Circulatory - Left Pulses Dorsalis Pedis Femoral 2 2 Scale (0,1,2,3,4,d) Circulatory - Lower Extremities Color Lower Right Color Lower Left Normal Normal Neurological State Oriented to time-place- Alert Moves all extremities person Respiration - General Respiration Rate SpO2 (%) (B/min) 18 99 Chronological Log Time Study Chronological Log 11:53:28 Patient arrived via Bed. 11:53:29 Patient Name, D.O.B, / Armband Verified By R.N. 11:53:29 Consent signed by the physician and the patient and verified by the Child Development Associate Teacher staff. 11:53:30 Pre-op and post- op instructions given; patient acknowledges understanding of instructions. 11:53:35 Presedation assessment performed by Child Development Associate Teacher RN. 11:53:36 Allens test performed on the right radial and ulnar artery. 11:53:37 Immediate Presedation assesment performed by physician. 11:53:38 Patient has been NPO for More than 6Hrs. 11:53:38 Skin Breakdown-rash 11:53:39 Patient Warmer Placed on the Table. 11:53:40 Sara Prominences Protected 11:53:40 A # 20 IV was noted in the Antecubital (right). Grade = 0 11:53:42 Patient arrived on IV Solutions in Right Antecubital via Peripheral IV. Pump/Drip Flow = 20 ml/hr using NaCl .9. 11:53:42 History and physical on the chart or being dictated. Vitals capture started with the following parameters, Patient=Adult, Interval=5 min, Initial Pr cmdpkc=017 mmHg, 11:57:05 Deflation Rate=5 mmHg, Cuff placed on Left Arm 11:57:44 HR=61 bpm, DQVL=844/82 mmhg, SpO2=97.0 %, Pain=2, Audrey=10, Myers=2 11:59:50 50 mg BENADRYL given in lab by Tomas Byrne, RN in Right Antecubital via Peripheral IV. 12:01:23 Reference ECG taken 12:02:41 HR=55 bpm, SHOW=980/75 mmhg, GjF0=431.0 %, Resp=11 B/min, Pain=2, Audrey=10, Myers=2 12:05:40 History and physical on the chart or being dictated. Assessment: Initial Case, HR=61 BPM, Rhythm=reg, VJYQ=347/75 mmhg, Chest Pain=2, Edema=None, Co ron=Normal, Skin = Warm Right Pulses: Chi Ped=2, Femoral=2 Left Pulses: Chi Ped=2, Femoral=2 12:05:41 Lower Right Extremities: Color=Normal Lower Left Extremities: Color=Normal Neurological: State=Alert, Ox3, LOVE Respiration: Resp=21 B/min, SpO2=98 % 12:06:57 Bilateral groins prepped with 2% chlorhexidine, and draped after a 3 minute waiting time. 12:07:02 paged 12:07:38 HR=65 bpm, WTUC=504/79 mmhg, SpO2=98.0 %, Resp=25 B/min, Pain=2, Audrey=10, Myers=2 12:12:41 HR=71 bpm, JPJL=987/78 mmhg, SpO2=99.0 %, Resp=23 B/min, Pain=2, Audrey=10, Myers=2 12:18:11 HR=60 bpm, ZPRS=701/86 mmhg, SpO2=99.0 %, Resp=22 B/min, Pain=2, Audrey=10, Myers=2 12:18:14 Pressure channel 1 zeroed. 12:22:43 HR=52 bpm, OSSV=799/80 mmhg, LoV4=008.0 %, Resp=14 B/min, Pain=2, Audrey=10, Myers=2 12:27:42 HR=63 bpm, YWVQ=793/88 mmhg, SpO2=99.0 %, Resp=19 B/min, Pain=2, Audrey=10, Myers=2 12:29:27 MD arrived. 12:29:42 2 mg VERSED given in lab by Tomas Byrne, RN via Peripheral IV. 12:30:10 OMNIPAQUE, 350 MG, 50ML 50ML and 30 LIYAH INDEFLATOR added. 12:32:47 HR=60 bpm, PCHA=074/80 mmhg, SpO2=97.0 %, Resp=10 B/min, Pain=2, Audrey=10, Myers=2 12:34:40 Case Start 12:34:42 20 mL 1% XYLOCAINE given in lab by Roque Case in Right Radial via Subcutaneous. 12:36:57 Access site was Right Radial Artery . 12:37:08 A wire was inserted via Radial (right). A SHEATH, FR6 TRANSRADIAL SLENDER 10CM FR 6 was advanced into the Radial (right) using the Perc utaneous 12:37:37 technique. 5 mL (Bolus) RADIAL COCKTAIL given in lab by Roque Case via Radial. Using [Solution Na me]. Reason: Ntg 12:37:48 200mcg Verapamil 2.5mg Heparin 2000U. heparin 3900 units 12:38:27 HR=64 bpm, JOJT=444/87 mmhg, QaE5=959.0 %, Resp=12 B/min, Pain=2, Audrey=10, Myers=2 A JR 4.0 DXTERITY CATHETER FR 5 was advanced over a wire. OMNIPAQUE, 350 MG, 50ML 50ML was used for 12:40:36 injections. Recorded Pressure: LV, HR=67, Condition=Condition 1 12:41:28 (Left Ventricle) LV 129/-6/4 Recorded Pressure: LV, Ao, HR=72, Condition=Condition 1 12:41:41 (Left Ventricle) LV 124/-9/2, (Aorta) Ao 105/62/79 12:42:07 The RCA was injected and visualized at various angles. OMNIPAQUE, 350 MG, 50ML 50ML used. Recorded Pressure: Ao, HR=72, Condition=Condition 1 12:42:36 (Aorta) Ao 105/70/87 12:42:43 HR=80 bpm, GTAL=309/81 mmhg, SpO2=97.0 %, Resp=10 B/min, Pain=2, Audrey=10, Myers=2 After removing the current catheter a EBU 4.0 Z2 GUIDE CATHETER FR 6 was advanced over a WIRE, EXCHANGE 12:43:55 260CM 3MMJ 260CM. 12:47:40 HR=65 bpm, UZED=335/94 mmhg, SpO2=98.0 %, Resp=10 B/min, Pain=2, Audrey=10, Myers=2 12:49:06 5300 units HEPARIN given in lab by Tomas Byrne RN via Peripheral IV. 12:49:23 The LCA was injected and visualized at various angles. OMNIPAQUE, 350 MG, 50ML 50ML used. 12:50:14 A WIRE, BALANCE MIDDLEWEIGHT 190CM 190CM was inserted via Radial (right). 12:51:52 Interventional wire has crossed the lesion 12:53:30 HR=59 bpm, UIKJ=430/82 mmhg, SpO2=99.0 %, Resp=18 B/min, Pain=2, Audrey=10, Myers=2 A BALLOON, 2.0 X 12MM EUPHORA 12MM was inserted over WIRE, BALANCE MIDDLEWEIGHT 190CM 190CM via the 12:54:09 LAD Dist. 12:55:33 Activated Clotting Time Drawn 12:57:48 HR=60 bpm, PFHD=125/94 mmhg, SpO2=98.0 %, Resp=11 B/min, Pain=2, Audrey=10, Myers=2 A BALLOON, 2.0 X 12MM EUPHORA 12MM over a WIRE, BALANCE MIDDLEWEIGHT 190CM 190CM in the LAD Dis t was 12:57:58 inflated using a 30 LIYAH INDEFLATOR at 8 liyah for 10 sec. A BALLOON, 2.0 X 12MM EUPHORA 12MM over a WIRE, BALANCE MIDDLEWEIGHT 190CM 190CM in the LAD Dis t was 12:58:50 inflated using a 30 LIYAH INDEFLATOR at 8 liyah for 10 sec. A BALLOON, 2.0 X 12MM EUPHORA 12MM over a WIRE, BALANCE MIDDLEWEIGHT 190CM 190CM in the LAD Dis t was 12:59:17 inflated using a 30 LIYAH INDEFLATOR at 8 liyah for 10 sec. A BALLOON, 2.0 X 12MM EUPHORA 12MM over a WIRE, BALANCE MIDDLEWEIGHT 190CM 190CM in the LAD Dis t was 12:59:56 inflated using a 30 LIYAH INDEFLATOR at 8 liyah for 10 sec. 13:00:30 Balloon Removed. 13:00:41 The LAD Dist was injected and visualized at various angles. OMNIPAQUE, 350 MG, 50ML 50ML us ed. 13:01:48 ACT (Normal Range 90-180) = 324 13:02:47 HR=61 bpm, CUSF=356/94 mmhg, SpO2=99.0 %, Resp=11 B/min, Pain=2, Audrey=10, Myers=2 A STENT, 2.0 18MM TOÑA 2.0 X 18MM was advanced through a EBU 4.0 Z2 GUIDE CATHETER FR 6 over a WIRE, 13:03:14 BALANCE MIDDLEWEIGHT 190CM 190CM. A STENT, 2.0 18MM TOÑA 2.0 X 18MM was deployed using a 30 LIYAH INDEFLATOR at 12 atmospheres for 30 seconds 13:05:59 in the LAD Dist. 13:06:54 Delivery device removed 13:07:51 HR=57 bpm, TUJN=148/91 mmhg, SpO2=99.0 %, Resp=31 B/min, Pain=2, Audrey=10, Myers=2 13:08:00 1 mg VERSED given in lab by Tomas Byrne, RN via Peripheral IV. 13:08:02 The LCA was injected and visualized at various angles. OMNIPAQUE, 350 MG, 50ML 50ML used. A BALLOON, 2.0 X 12MM NC EUPHORA 12MM was inserted over WIRE, BALANCE MIDDLEWEIGHT 190CM 190CM via 13:11:31 the LAD Dist. A BALLOON, 2.0 X 12MM NC EUPHORA 12MM over a WIRE, BALANCE MIDDLEWEIGHT 190CM 190CM in the LAD Dist 13:11:42 was inflated using a 30 LIYAH INDEFLATOR at 16 liyah for 10 sec. 13:12:52 HR=66 bpm, SHZA=603/98 mmhg, XmF5=893.0 %, Resp=11 B/min, Pain=2, Audrey=10, Myers=2 13:13:17 Balloon Removed. A STENT, 3.0 15MM TOÑA 3.0 15MM was advanced through a EBU 4.0 Z2 GUIDE CATHETER FR 6 over a WI RE, 13:14:13 BALANCE MIDDLEWEIGHT 190CM 190CM. 13:14:44 50 mcg FENTANYL given in lab by Tomas Byrne, RN via Peripheral IV. A STENT, 3.0 15MM TOÑA 3.0 15MM was deployed using a 30 LIYAH INDEFLATOR at 12 atmospheres for 30 seconds in 13:15:44 the LAD Mid. 13:16:21 Delivery device removed A BALLOON, 3.0 X 12MM NC EUPHORA 12MM was inserted over WIRE, BALANCE MIDDLEWEIGHT 190CM 190CM via 13:16:58 the LAD Mid. 13:17:53 HR=63 bpm, XYVV=622/91 mmhg, XsW1=375.0 %, Resp=6 B/min, Pain=2, Audrey=10, Myers=2 A BALLOON, 3.0 X 12MM NC EUPHORA 12MM over a WIRE, BALANCE MIDDLEWEIGHT 190CM 190CM in the LAD Mid 13:18:13 was inflated using a 30 LIYAH INDEFLATOR at 20 liyah for 15 sec. A BALLOON, 3.0 X 12MM NC EUPHORA 12MM over a WIRE, BALANCE MIDDLEWEIGHT 190CM 190CM in the LAD Mid 13:18:54 was inflated using a 30 LIYAH INDEFLATOR at 20 liyah for 15 sec. 13:19:39 200 mcg NTG (IC) given by Roque Case via Intra-coronary. 13:19:59 125 mg SOLU-MEDROL given by Tomas Byrne RN in Right Antecubital via Peripheral IV. 13:20:22 Balloon Removed. 13:20:29 The LCA was injected and visualized at various angles. OMNIPAQUE, 350 MG, 50ML 50ML used. 13:22:52 HR=72 bpm, WMVE=095/89 mmhg, Resp=20 B/min, Pain=2, Audrey=10, Myers=2 13:23:49 20 mg PEPCID given in lab by Tomas Byrne RN in Right Antecubital via Peripheral IV. A STENT, 2.75 8MM TOÑA 2.75 8MM was advanced through a EBU 4.0 Z2 GUIDE CATHETER FR 6 over a WI RE, 13:24:13 BALANCE MIDDLEWEIGHT 190CM 190CM. A STENT, 2.75 8MM TOÑA 2.75 8MM was deployed using a 30 LIYAH INDEFLATOR at 12 atmospheres for 20 seconds in 13:24:55 the LAD Mid. 13:26:12 Delivery device removed 13:26:56 The LCA was injected and visualized at various angles. OMNIPAQUE, 350 MG, 50ML 50ML used. A BALLOON, 2.75 X 6MM NC EUPHORA 6MM was inserted over WIRE, BALANCE MIDDLEWEIGHT 190CM 190CM v ia the 13:27:05 LAD Mid. A BALLOON, 2.75 X 6MM NC EUPHORA 6MM over a WIRE, BALANCE MIDDLEWEIGHT 190CM 190CM in the LAD M id 13:27:28 was inflated using a 30 LIYAH INDEFLATOR at 12 liyah for 12 sec. 13:27:49 HR=55 bpm, LQLN=828/83 mmhg, Resp=10 B/min, Pain=2, Audrey=10, Myers=2 13:28:34 Balloon Removed. 13:28:58 The LCA was injected and visualized at various angles. OMNIPAQUE, 350 MG, 50ML 50ML used. 13:30:20 Wire removed 13:30:22 Catheter was removed Assessment: Final Case, HR=61 BPM, Rhythm=REG, ETCQ=594/83 mmhg, Chest Pain=2, Edema=None, [place] r=Normal, Skin = Warm Right Pulses: Chi Ped=2, Femoral=2 Left Pulses: Chi Ped=2, Femoral=2 13:30:57 Lower Right Extremities: Color=Normal Lower Left Extremities: Color=Normal Neurological: State=Alert, Ox3, LOVE Respiration: Resp=18 B/min, SpO2=99 % 13:32:48 HR=59 bpm, DFBN=404/92 mmhg, SpO2=98.0 %, Resp=11 B/min, Pain=2, Audrey=10, Myers=2 13:34:47 Catheter(s) removed without difficulty Radial Compression Device Used. 12 mLs of air placed in BAND, RADIAL COMPRESSION TR SHORT 24 24 CM. Affected 13:34:49 hand 99 % O2 saturation. 13:35:13 Case End (Physician broke scrub) 13:35:16 No case complications noted. 13:35:17 Cine recording checked. 13:35:18 Bedside Report will be given. 13:35:19 Implantable Device card placed in patient's chart. 13:35:22 A Left Heart Cath was performed. 13:35:23 Clinical correlaton risk stratification. 13:37:24 Vitals capture stopped. End Study - Contrast Media Used In Study Contrast Total Opened (mL) Total Used (mL) Total Wasted (mL) Omnipaque 120 120 0 End Study - Maximum Contrast Load Max Contrast Load (mL) 538.9 End Study - Radiation Exposure Fluoro Time (minutes) 13.5 End Study - Sheaths Sheaths Pulled By Sheath Hold Time (min) Guicho Nguyễn End Study - Patient Disposition Complications Transferred To Interventional Outcome No Regular Bed successful"
[2018-01-31] MEDS: Sod Chloride 0.9% Inj 1,000 ML IV.CONT SCH (16:00)
--- NOTE | 2018-01-31 17:30 | P.PNCA ---
Subjective Interval history: Rash this morning within 3 hours of receiving Morphine Received Benadryl before cath which helped a bit Given Solumedrol during the cath and rash is now better Post-cath LAD with stenting x3 Doing well, no complaints Physical Exam Vital signs: Vital Signs 01/30/18 20:00 01/30/18 21:00 01/30/18 22:00 Temperature 98.0 F Pulse Rate 72 62 54 L Respiratory Rate 16 Blood Pressure 139/82 Pulse Oximetry 98 01/30/18 23:00 01/31/18 00:00 01/31/18 00:35 Temperature 97.9 F Pulse Rate 66 62 52 L Respiratory Rate 16 Blood Pressure 114/59 L Pulse Oximetry 95 01/31/18 01:00 01/31/18 02:00 01/31/18 03:00 Temperature Pulse Rate 54 L 56 L 66 Respiratory Rate Blood Pressure Pulse Oximetry 01/31/18 04:00 01/31/18 05:00 01/31/18 07:00 Temperature 98.0 F 98.2 F Pulse Rate 50 L 52 L 76 Respiratory Rate 16 16 Blood Pressure 118/79 122/66 Pulse Oximetry 98 94 L 01/31/18 11:00 01/31/18 15:00 01/31/18 16:00 Temperature 98.0 F Pulse Rate 60 94 H 108 H Respiratory Rate 16 Blood Pressure 113/66 Pulse Oximetry 99 01/31/18 17:00 Temperature Pulse Rate 82 Respiratory Rate Blood Pressure Pulse Oximetry Intake & Output 01/30/18 01/31/18 01/31/18 18:59 06:59 18:59 Intake Total 240 / 240 Output Total 1400 / 1400 Balance -1160 / -1160 Weight 53.07 kg 97.2 kg Intake: Oral 240 / 240 Output: Urine 1400 / 1400 Other: Weight On Admission 53.07 kg Narrative: GENERAL: NAD SKIN: Warm and dry. drug reaction rash covering torso/abdomen/back /thighs HEAD: Normocephalic. EYES: No scleral icterus. No injection or drainage. NECK: Supple, trachea midline. No JVD or lymphadenopathy. CARDIOVASCULAR: Regular rate and rhythm without murmurs, gallops, or rubs. RESPIRATORY: Breath sounds equal bilaterally. No accessory muscle use. GASTROINTESTINAL: Abdomen soft, non-tender, nondistended. MUSCULOSKELETAL: No cyanosis, or edema. BACK: Nontender without obvious deformity. No CVA tenderness. Assessment and Plan - Assessment (1) Drug rash Code(s): L27.0 - Generalized skin eruption due to drugs and medicaments taken internally Status: Acute (2) Allergy to statin medication Code(s): Z88.8 - Allergy status to other drugs, medicaments and biological substances status Status: Acute (3) Chest pain Code(s): R07.9 - Chest pain, unspecified Status: Acute (4) Abnormal EKG Code(s): R94.31 - Abnormal electrocardiogram [ECG] [EKG] Status: Acute (5) CAD (coronary artery disease) Code(s): I25.10 - Atherosclerotic heart disease of [place] coronary artery without angina pectoris Status: Acute (6) HTN (hypertension) Code(s): I10 - Essential (primary) hypertension Status: Acute (7) Tobacco abuse Code(s): Z72.0 - Tobacco use Status: Acute - Plan 1) Unstable angina/Abnormal EKG Failing medical management PCI of LAD with DESx3 Previous STEMI s/p DESx3 to RCA/PLB ASA/Brilinta/BB/DIANA-I 2) Statin allergy Unable to take statins Significant myalgias and rash Would not send him home on a new statin Will most likely attempt to get PCSK9 Inhibitor outpatient 3) Morphine allergy Add to his list of allergies 4) Back pain Possible statin induced Hopefully now that he's off statins it will get better 5) Watch overnight and if stable tomorrow discharge home
[2018-02-01] MEDS: Sod Chloride 0.9% Inj 1,000 ML IV.CONT SCH (07:46)
[2018-02-01] MEDS: Metoprolol Tartrate 25 MG Tablet PO SCH (08:38)
[2018-02-01] MEDS: Lisinopril 5 MG Tablet PO SCH (08:38)
[2018-02-01 09:22] VITALS: BP 149/93; RESP 20; TEMP 98.1; O2SAT 99
--- NOTE | 2018-02-01 09:57 | MA ---
cc: Roque Case DO DATE: 01/31/2018 PROCEDURE: Left heart catheterization, coronary angiogram, moderate sedation of 60 minutes, Morris drug-eluting stent x3 (3.0 x 15 to proximal mid left anterior descending artery, 2.75 x 8 to the mid left anterior descending artery, 2 x 18 to distal left anterior descending artery). PREOPERATIVE DIAGNOSES: Chest pain concerning for coronary insufficiency, failed medical management, abnormal EKG showing anterior ischemia. POSTOPERATIVE DIAGNOSIS: Unstable angina, status post Wayland drug-eluting stent x3 (3 x 15 to proximal mid left anterior descending artery, 2.75 x 8 to the mid left anterior descending artery, 2.0 x 18 to the distal left anterior descending artery. MEDICATIONS: Benadryl 50 mg, nitro 200 mcg, verapamil 2.5 mg, heparin 9200 units, Versed 1 mg, fentanyl 50 mcg, Solu-Medrol 125 mg. CONTRAST USED: 120 mL. FLUOROSCOPY: 13.5 minutes. MODERATE SEDATION: 60 minutes. FRAILTY SCORE: 2. ESTIMATED BLOOD LOSS: 10 mL. PROCEDURAL SUMMARY: Kevin Kay is a pleasant 52-year-old male who previously was here less than 2 weeks ago due to an inferior STEMI. He underwent PCI of his RCA, but had residual LAD disease that we attempted to treat medically. He was seen in his primary care physician's office and there was concern for him having left-sided chest pain as well as an extremely abnormal EKG and so he was sent to the emergency room. As he continued to have chest pain, albeit atypical, his EKG shows concern for anterior ischemia. I felt that it was reasonable for him to undergo cardiac catheterization and planned intervention of his LAD as there is extensive disease at the distal portion of the LAD, possibly causing ischemia. Risks, benefits and alternatives were explained to him and he consented as such. He was brought to the lab and prepped in the usual sterile fashion. The right radial artery was accessed using modified Seldinger technique and placement of a 5/6 [place] slender sheath. This was easily aspirated and flushed. A JR4 was advanced over a J-wire to the ascending aorta and used for selective angiography of the right coronary artery system. This was pulled back across the aortic valve showing no significant gradient of aortic stenosis. A JR4 was used for selective angiography of the right coronary artery system. This was exchanged out for an EBU 3.5 guide, which was used for selective angiography of the left coronary artery system. Please see notes below for intervention. FINDINGS: LEFT MAIN: Normal-sized vessel with adequate reflux. It bifurcates into an LAD and circumflex. LAD: Normal-sized vessel with multiple areas of significant disease throughout. The proximal to mid has a 70% lesion, mid has an 80% lesion, and distal portion before the apex has tandem lesions of 90%. LEFT CIRCUMFLEX: Moderate size vessel with diffuse 30% disease throughout the proximal and mid portion. RCA: Moderate size vessel with stents patent in the proximal and distal portion as well as stent patent in the posterolateral branch. LVEDP: 2. INTERVENTION: Originally I had planned to only intervene on the proximal to mid portion of the LAD, but felt like the distal portion of the LAD having tandem 90% lesions was most likely going to be the actual concern in the area of possible ischemia and so I felt that all 3 areas needed to be intervened on. Heparin was given as an anticoagulant. A BMW wire was advanced meticulously to the distal portion of the LAD. A compliant balloon (2 x 12) was used to predilate the distal LAD. An Morris drug-eluting stent (2 x 18) was then placed over the lesion and inflated. This was postdilated with a noncompliant balloon (2 x 12). An Morris drug-eluting stent (3 x 15) was then placed over the proximal to mid lesion and inflated. This was postdilated with a noncompliant balloon (3 x 12). Angiogram at that time showed both stents were well opposed but there was still concern for a focal lesion in the mid portion of the LAD. An Wayland drug-eluting stent (2.75 x 8) was placed over the lesion and inflated. A noncompliant balloon (2.75 x 6) was then used to post-dilate the stent. Final angiogram shows the 3 well opposed stents with no perforations or dissections. The wire was removed. Guide was removed. A radial band was placed over the arteriotomy site for hemostasis. The patient left the cardiac cath technologist cardiovascularly stable. IMPRESSION: 1. Unstable angina/failed medical therapy, status post Wayland drug-eluting stent x3 to left anterior descending artery as above. 2. Previous inferior ST elevation myocardial infarction, status post Morris drug-eluting stent x3 to the right coronary artery. 3. Family history of coronary artery disease. 4. Previous tobacco abuse. RECOMMENDATIONS: 1. Mr. Kay underwent PCI of his LAD as above and he will be recommended continued aspirin and Brilinta therapy. 2. He will continue on beta thang and DIANA inhibitor therapy. 3. It is believed that he had significant reaction to statins which cause myalgias, which are still bothering him, as well as a rash, which has since decreased since stopping Lipitor. Because of this, I would not plan on sending him home on any statin therapy due to concerns. 4. Consideration will be made for a PCSK9 inhibitor in the outpatient setting. 5. He will be watched overnight and, if stable in the morning, discharged home to follow up with myself in the next few weeks. 6. He did appear to have a drug rash due to morphine this morning and this has since been treated with Benadryl and Solu-Medrol. After receiving this, his rash seemed to decreased immensely. This will have to be watched overnight. Thank you for allowing me to Kevin Kay. If there are any questions, please do not hesitate to call. DO OCHOA Saldana/sarah/flakito , 11:50 PM , 12:08 AM [email or web address]
[2018-02-01 10:00] LABS: Baso # (Auto) 0.1 th/mm3 (0.0-0.2); Baso % (Auto) 0.3 % (0.0-2.0); Eos # (Auto) 0.2 th/mm3 (0.0-0.4); Eos % (Auto) 0.7 % (0.0-4.0); Hemoglobin 14.2 gm/dL (13.0-17.0); Lymph # (Auto) 1.9 th/mm3 (1.0-4.8); Lymph % (Auto) 7.6 % (9.0-44.0); Mean Corpuscular HGB Conc 33.8 % (32.0-36.0); Mean Corpuscular Hemoglobin 31.3 pg (27.0-34.0); Mean Corpuscular Volume 92.4 fL (80.0-100.0); Mean Platelet Volume 9.5 fL (7.0-11.0); Mono % (Auto) 4.1 % (0.0-8.0); Neut # (Auto) 21.5 th/mm3 (1.8-7.7); Neut % (Auto) 87.3 % (16.0-70.0); Platelet Count 339 th/mm3 (150-450); Red Blood Count 4.55 mil/mm3 (4.50-5.90); Red Cell Distribution Width 13.6 % (11.6-17.2); White Blood Count 24.6 th/mm3 (4.0-11.0)
[2018-02-01 10:24] LABS: Alanine Aminotransferase 34 U/L (12-78); Albumin 3.9 g/dL (3.4-5.0); Anion Gap 8 meq/L (5-15); Aspartate Aminotransferase 16 U/L (15-37); Blood Urea Nitrogen 14 mg/dL (7-18); Calcium 8.7 mg/dL (8.5-10.1); Carbon Dioxide 23.6 meq/L (21.0-32.0); Chloride 107 meq/L (98-107); Glomerular Filtration Rate 84 mL/min (>89); Glucose,Random 112 mg/dL (74-106); Potassium 3.9 meq/L (3.5-5.1); Sodium 139 meq/L (136-145)
[2018-02-01 10:26] LABS: Alkaline Phosphatase 79 U/L (45-117); Total Protein 7.2 g/dL (6.4-8.2)
--- NOTE | 2018-02-01 10:45 | P.PN ---
Subjective Interval history: Pt feels well w/o any chest pain, wants to go home, has a diffuse skin alg to morphine apparently, though has improved, pt says he will be going home on steroids. Physical Exam Vital signs: Vital Signs 01/31/18 11:00 01/31/18 15:00 01/31/18 16:00 Temperature 98.0 F 98.4 F Pulse Rate 60 84 108 H Respiratory Rate 16 16 Blood Pressure 113/66 120/80 Pulse Oximetry 99 99 01/31/18 17:00 01/31/18 18:00 01/31/18 19:00 Temperature Pulse Rate 82 97 H 98 H Respiratory Rate Blood Pressure Pulse Oximetry 01/31/18 20:00 01/31/18 21:00 01/31/18 21:09 Temperature 98.4 F Pulse Rate 86 90 82 Respiratory Rate 18 Blood Pressure 124/71 Pulse Oximetry 96 01/31/18 22:00 01/31/18 23:00 01/31/18 23:41 Temperature 98.1 F Pulse Rate 84 82 92 H Respiratory Rate 18 Blood Pressure 123/73 Pulse Oximetry 97 02/01/18 00:00 02/01/18 01:00 02/01/18 02:00 Temperature Pulse Rate 86 74 98 H Respiratory Rate Blood Pressure Pulse Oximetry 02/01/18 03:00 02/01/18 04:00 02/01/18 05:00 Temperature 97.9 F Pulse Rate 65 86 86 Respiratory Rate 19 Blood Pressure 133/70 Pulse Oximetry 96 02/01/18 06:00 02/01/18 07:00 02/01/18 08:00 Temperature 98.1 F Pulse Rate 82 78 84 Respiratory Rate 20 Blood Pressure 149/93 H Pulse Oximetry 99 02/01/18 09:00 02/01/18 09:32 Temperature Pulse Rate 82 78 Respiratory Rate Blood Pressure Pulse Oximetry Intake & Output 01/31/18 02/01/18 02/01/18 18:59 06:59 18:59 Intake Total 2080 / 2080 570 / 570 1000 / 1000 Output Total 700 / 700 1650 / 1650 Balance 1380 / 1380 -1080 / -1080 1000 / 1000 Weight 97.1 kg Intake: IV 1000 / 1000 1000 / 1000 NS Inj 1,000 ML @ 60 mls/hr IV. 1000 / 1000 1000 / 1000 CONT .[id number] [facility] Rx#:[id number] Oral 1080 / 1080 570 / 570 Output: Urine 700 / 700 1650 / 1650 - Constitutional no acute distress - Routine HEENT Exam Head: Present: normocephalic (n) - Routine Cardiovascular Exam Present: RRR. Absent: murmur - Routine Abdominal Exam Present: soft - Routine Skin Exam Present: rash Results - Labs CBC & Chem 7: 02/01/18 09:10 02/01/18 09:10 Laboratory Results - last 24 hr 02/01/18 02/01/18 09:10 09:10 WBC 24.6 H RBC 4.55 Hgb 14.2 D Hct 42.0 MCV 92.4 MCH 31.3 MCHC 33.8 RDW 13.6 Plt Count 339 MPV 9.5 Prelim Diff (Auto) Slide review pending Neut % (Auto) 87.3 H Lymph % (Auto) 7.6 L [place] % (Auto) 4.1 Eos % (Auto) 0.7 Baso % (Auto) 0.3 Neut # (Auto) 21.5 H Lymph # (Auto) 1.9 [place] # (Auto) 1.0 H Eos # (Auto) 0.2 Baso # (Auto) 0.1 WBC Differential . Differential Comment . Sodium 139 Potassium 3.9 Chloride 107 Carbon Dioxide 23.6 Anion Gap 8 BUN 14 Creatinine 0.94 Estimated GFR 84 L Random Glucose 112 H Calcium 8.7 Total Bilirubin 0.4 AST 16 ALT 34 Alkaline Phosphatase 79 Total Protein 7.2 Albumin 3.9 Assessment and Plan - Assessment (1) Drug rash Code(s): L27.0 - Generalized skin eruption due to drugs and medicaments taken internally Status: Acute Plan: pt will be going home on steroids (2) Allergy to statin medication Code(s): Z88.8 - Allergy status to other drugs, medicaments and biological substances status Status: Acute (3) Chest pain Code(s): R07.9 - Chest pain, unspecified Status: Acute Plan: resolved (4) Abnormal EKG Code(s): R94.31 - Abnormal electrocardiogram [ECG] [EKG] Status: Acute (5) CAD (coronary artery disease) Code(s): I25.10 - Atherosclerotic heart disease of [place] coronary artery without angina pectoris Status: Acute Plan: on asa/brillinta/bb, not on statin due to alg (6) HTN (hypertension) Code(s): I10 - Essential (primary) hypertension Status: Acute (7) Tobacco abuse Code(s): Z72.0 - Tobacco use Status: Acute - Plan Ok to d/c home from cardiac standpoint.
[2018-02-01 11:06] LABS: Lymphocytes 7 % (9-44); Monocytes 2 % (0-8); Platelet Estimate Normal (Normal); Platelet Morphology Normal (Normal); RBC Morphology Normal (Normal)
[2018-02-01 11:07] LABS: Toxic Vacuolation Present
[2018-02-01 11:20] VITALS: PULSE 70
--- NOTE | 2018-02-01 11:21 | P.DS ---
Date of admission: 01/30/18 15:46 Primary care physician: Ramon Alvarado MD Anticipated date of discharge: 02/01/18 Brief History from admission: patient is a 52 y/o male with recent STEMI-ten days ago- s/p cardiac cath and stent placement- who presented to ER with chest and back pain. he says that since he left the hospital he's had on and off chest pain. pain was described as ' burning type of pain' with no radiation and no accompanied nausea, dizziness, sweating.back pain is mild to moderate in intensity.he says that he was started on statin but he had a reaction with some rash to the arms for which his stain was discontinued. he says that for the past few days he's had some back pain. he was seen by PCP today and after his EKG was done he was advised to come back to the hospital.he was chest pain free at the time of my evaluation. DS: Summary Hospital Course: While in hospital, patient was treated for: Atypical chest pain Prior history of STEMI status post MANPREET x 3 Currently on aspirin/Brilinta/Lopressor and lisinopril s/p left heart catheterization with stent x 3 January 31, 2018 Off Statin secondary to allergy reaction Drug rash eruption-improving More likely secondary to morphine Continue Benadryl as needed. Will discharge home on steroid History of Chronic Back pain stable CT abdomen/Pelvis noted - Time Spent with Patient Total time spent providing and/or coordinating discharge services: Less than 30 minutes - Quality: VTE Deep Vein Thrombosis/Pulmonary Embolism Present on Admission: No Exam Vital signs: Vital Signs 01/31/18 15:00 01/31/18 16:00 01/31/18 17:00 Temperature 98.4 F Pulse Rate 84 108 H 82 Respiratory Rate 16 Blood Pressure 120/80 Pulse Oximetry 99 01/31/18 18:00 01/31/18 19:00 01/31/18 20:00 Temperature Pulse Rate 97 H 98 H 86 Respiratory Rate Blood Pressure Pulse Oximetry 01/31/18 21:00 01/31/18 21:09 01/31/18 22:00 Temperature 98.4 F Pulse Rate 90 82 84 Respiratory Rate 18 Blood Pressure 124/71 Pulse Oximetry 96 01/31/18 23:00 01/31/18 23:41 02/01/18 00:00 Temperature 98.1 F Pulse Rate 82 92 H 86 Respiratory Rate 18 Blood Pressure 123/73 Pulse Oximetry 97 02/01/18 01:00 02/01/18 02:00 02/01/18 03:00 Temperature 97.9 F Pulse Rate 74 98 H 65 Respiratory Rate 19 Blood Pressure 133/70 Pulse Oximetry 96 02/01/18 04:00 02/01/18 05:00 02/01/18 06:00 Temperature Pulse Rate 86 86 82 Respiratory Rate Blood Pressure Pulse Oximetry 02/01/18 07:00 02/01/18 08:00 02/01/18 09:00 Temperature 98.1 F Pulse Rate 78 84 82 Respiratory Rate 20 Blood Pressure 149/93 H Pulse Oximetry 99 02/01/18 09:32 02/01/18 11:00 Temperature Pulse Rate 78 70 Respiratory Rate Blood Pressure Pulse Oximetry Intake & Output 01/31/18 02/01/18 02/01/18 18:59 06:59 18:59 Intake Total 2080 / 2080 570 / 570 1000 / 1000 Output Total 700 / 700 1650 / 1650 Balance 1380 / 1380 -1080 / -1080 1000 / 1000 Weight 97.1 kg Intake: IV 1000 / 1000 1000 / 1000 NS Inj 1,000 ML @ 60 mls/hr IV. 1000 / 1000 1000 / 1000 CONT .[id number] [facility] Rx#:[id number] Oral 1080 / 1080 570 / 570 Output: Urine 700 / 700 1650 / 1650 Narrative: GENERAL: NAD SKIN: Warm and dry. HEAD: Normocephalic. EYES: No scleral icterus. No injection or drainage. NECK: Supple, trachea midline. No JVD or lymphadenopathy. CARDIOVASCULAR: Regular rate and rhythm without murmurs, gallops, or rubs. RESPIRATORY: Breath sounds equal bilaterally. No accessory muscle use. GASTROINTESTINAL: Abdomen soft, non-tender, nondistended. MUSCULOSKELETAL: No cyanosis, or edema. BACK: Nontender without obvious deformity. No CVA tenderness. Results Procedures completed during hospitalization: PCI with stent x 3 Labs on day of discharge: Labs from last 24 hours 02/01/18 02/01/18 09:10 09:10 WBC 24.6 H RBC 4.55 Hgb 14.2 D Hct 42.0 MCV 92.4 MCH 31.3 MCHC 33.8 RDW 13.6 Plt Count 339 MPV 9.5 Prelim Diff (Auto) Slide review pending Neut % (Auto) 87.3 H Lymph % (Auto) 7.6 L [place] % (Auto) 4.1 Eos % (Auto) 0.7 Baso % (Auto) 0.3 Neut # (Auto) 21.5 H Lymph # (Auto) 1.9 [place] # (Auto) 1.0 H Eos # (Auto) 0.2 Baso # (Auto) 0.1 WBC Differential Manual diff final Seg Neuts % (Manual) 83 H Band Neuts % (Manual) 8 H Lymphocytes % (Manual) 7 L Monocytes % (Manual) 2 Abs Neuts (Manual) 22.4 H Differential Comment . Toxic Vacuolation Present H Platelet Estimate Normal Platelet Morphology Normal RBC Morphology Normal Sodium 139 Potassium 3.9 Chloride 107 Carbon Dioxide 23.6 Anion Gap 8 BUN 14 Creatinine 0.94 Estimated GFR 84 L Random Glucose 112 H Calcium 8.7 Total Bilirubin 0.4 AST 16 ALT 34 Alkaline Phosphatase 79 Total Protein 7.2 Albumin 3.9 - Impressions ITS Impressions Chest X-Ray 01/30/18 11:58 CONCLUSION: No acute cardiopulmonary disease Abdomen/Pelvis CT 01/30/18 12:40 CONCLUSION: 1. No specific abnormality is identified to explain the patient's clinical symptoms. No acute abnormality is identified in the abdomen or pelvis. 2. Moderate to severe atherosclerotic disease. 3. 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 Discharge Plan - Discharge Disposition Patient Disposition: 01 Discharge Home - Discharge Condition Condition: Stable - Discharge Order Discharge Orders: Discharge Order (Routine); Ordered 02/01/18 Ordered By: Earnest Mcmillan - Discharge Details Anticipated Discharge Date: 01/30/18 - Physicians Team Primary Care Provider: Rmaon Alvarado Attending Provider: Earnest Mcmillan Other Providers: Roque Case DO
--- NOTE | 2018-02-01 17:35 | ECG ---
Date Performed: 01/30/2018 Time Performed: 20:07:14 PTAGE: 52 years EKG: Sinus rhythm Leftward axis Possible inferior infarct - age undetermined Ant/septal and lateral T wave changes may be due to myocardial ischemia Abnormal ECG PREVIOUS TRACING : 01/30/2018 12.02 DOCTOR: Sherri Mckinnon Interpretating Date/Time 02/01/2018 17:30:57
--- NOTE | 2018-02-01 17:43 | ECG ---
Date Performed: 01/30/2018 Time Performed: 12:02:50 PTAGE: 52 years EKG: SINUS BRADYCARDIA INDETERMINATE AXIS MARKED T-WAVE ABNORMALITY, CONSIDER ANTEROLATERAL ISCH EMIA MODERATE T-WAVE ABNORMALITY, CONSIDER INFERIOR ISCHEMIA ABNORMAL ECG PREVIOUS TRACING : 01/19/2018 12.17 DOCTOR: Sherri Mckinnon Interpretating Date/Time 02/01/2018 17:36:43
== END 2018-02-01 11:55 | disposition home or self-care (01) ==
LOC: NEPC 11:39 → NEDA 15:46 → HCIS 18:13
PROVIDERS: ADMIT Hospitalist; ATTEND Hospitalist

== ENCOUNTER 2018-07-28 10:42 | Inpatient (IN) ==
[2018-07-28 11:23] LABS: Baso # (Auto) 0.1 th/mm3 (0.0-0.2); Baso % (Auto) 0.8 % (0.0-2.0); Eos # (Auto) 0.2 th/mm3 (0.0-0.4); Eos % (Auto) 1.7 % (0.0-4.0); Hematocrit 43.8 % (39.0-51.0); Hemoglobin 15.3 gm/dL (13.0-17.0); Lymph % (Auto) 28.5 % (9.0-44.0); Mean Corpuscular HGB Conc 34.8 % (32.0-36.0); Mean Corpuscular Hemoglobin 31.9 pg (27.0-34.0); Mean Corpuscular Volume 91.5 fL (80.0-100.0); Mono # (Auto) 0.7 th/mm3 (0.0-0.9); Mono % (Auto) 6.3 % (0.0-8.0); Neut # (Auto) 6.7 th/mm3 (1.8-7.7); Neut % (Auto) 62.7 % (16.0-70.0); Platelet Count 301 th/mm3 (150-450); Red Blood Count 4.79 mil/mm3 (4.50-5.90); Red Cell Distribution Width 13.5 % (11.6-17.2); White Blood Count 10.7 th/mm3 (4.0-11.0)
--- NOTE | 2018-07-28 11:33 | ED ---
HPI General Chief Complaint: Chest Pain Stated Complaint: cheat pain Time Seen by Provider: 07/28/18 11:00 Source: patient Mode of arrival: ambulatory Limitations: no limitations History of Present Illness MD complaint: Reports chest pain STEMI Alert: No Onset (ago): day(s) (3) Duration: constant and other ([place]axes [place] wanes) Pain location: Reports substernal Severity scale (1-10): 3 Quality: Reports tightness Pain radiation: Reports none Relieving factors: nothing Exacerbating factors: nothing Context: Reports other ([place] approximately 6 months ago) Associated symptoms: Reports other (Dizziness) Treatments prior to arrival chest pain: Reports nitroglycerin Related Data Home Medications Medication Instructions Recorded Confirmed acetaminophen [Tylenol] 650 mg PO Q6H PRN 07/28/18 07/28/18 aspirin [Aspir-81] 81 mg PO DAILY 07/28/18 07/28/18 lisinopril 5 mg PO DAILY 07/28/18 07/28/18 metoprolol tartrate 12.5 mg PO BID 07/28/18 07/28/18 pravastatin 40 mg PO DAILY 07/28/18 07/28/18 ticagrelor [Brilinta] 60 mg PO BID 07/28/18 07/28/18 Previous Rx's Medication Instructions Recorded diphenhydramine HCl [Benadryl] 25 mg PO Q4-6H PRN #12 cap 02/01/18 Allergies Allergy/AdvReac Type Severity Reaction Status Date / Time latex Allergy Anaphylaxis Verified 01/19/18 12:15 morphine Allergy Hives Verified 02/01/18 08:37 Ppbxzlh-Nkj-Sxh Reductase Allergy Hives Verified 02/01/18 08:37 Inhibitor Review of Systems ROS: all other systems reviewed are negative [facility] Medical History Medical History Coronary artery disease (Acute) Patient denies medical problems (Acute) Surgical History Surgical History No history of previous surgery (Acute) S/P cardiac catheterization (Acute) Family History Family History Father Coronary artery disease Mother Colon cancer Social History Social History Substance History: No History of Abuse Second Hand Smoke Exposure: No Smoking Status: Former smoker Tobacco Type: Cigarettes How Often Do You Have a Drink Containing Alcohol: Never Recent Travel in [facility] within the Last 8 Weeks: No Recent Out of Country Travel within the Last 8 Weeks: No Immunization History Tetanus Immunization: <5 Years Exam Const General: cooperative, healthy appearing and comfortable Orientation: alert, awake and oriented x3 HENMT Head: normal to inspection, normocephalic and atraumatic Eyes General: appearance normal, both eyes and all related structures Conjunctivae: conjunctivae normal Sclera: sclerae normal EOM: EOM intact bilaterally Neck Neck: normal visual inspection and full ROM Chest Chest: normal inspection of the chest and no tenderness Resp Effort & Inspection: normal respiratory effort and able to speak in complete sentences Auscultation: clear to auscultation bilaterally Cardio Rate: regular rate Rhythm: regular rhythm Heart Sounds: S1 normal and S2 normal GI Inspection: normal to inspection Palpation: soft Back/Spine/Pelvis Cervical Spine: cervical ROM normal Thoracic/Lumbar Spine: thoraco-lumbar ROM normal Skin General: no rashes or lesions noted, turgor normal and dry skin Neuro General: alert, awake, oriented x3, moves all extremities and CN's II-XI intact bilaterally Extrem General: normal to inspection, full ROM and no pedal edema Psych Appearance: grossly normal Mental Status: mental status grossly normal Speech and Movement: speech and movement normal Mood: congruent mood Affect: normal affect Attitude: cooperative Thought Process: normal Thought Content: normal Judgment: judgment good Course Initial Documented Vital Signs Temperature 97.3 F L 07/28/18 10:51 Pulse Rate 70 07/28/18 10:51 Respiratory Rate 19 07/28/18 10:51 Blood Pressure 136/65 07/28/18 10:51 Pulse Oximetry 100 07/28/18 10:51 Last Documented Vital Signs Temperature 97.3 F L 07/28/18 10:51 Pulse Rate 61 07/28/18 12:30 Respiratory Rate 16 07/28/18 12:30 Blood Pressure 117/70 07/28/18 12:30 Pulse Oximetry 100 07/28/18 11:06 Critical Care Time Critical Care Time: Yes Total Critical Care Time: 30 Attestation: Time to perform other separately billable procedures was not included in the critical care time. My time did not include minutes spent treating any other patients simultaneously or on activities that did not directly contribute to the patient's treatment. The services I provided to this patient were to treat and/or prevent clinically significant deterioration due to non-STEMI I provided critical care services requiring my management, as noted below: Chart data review, documentation time, medication orders and management, vital sign assessments/reviewing monitor data, ordering and reviewing lab tests, ordering and interpreting/reviewing x-rays and diagnostic studies, care of the patient and discussion of the patient with the admitting physicians Medical Decision Making MDM Narrative Medical decision making narrative: This patient presents with chest pain which is similar to but not as severe as the pain that he had when he had his [place] in January. It has been present for about 3 days and has waxed and waned. It is unrelieved by nitroglycerin. Cardiac workup is in process. He is being treated here with aspirin and nitro. He is allergic to morphine. Workup shows a positive troponin. Heparin has been ordered. He will be admitted to the hospital and cardiology will be consulted. Medical Screen Exam Complete: Yes Emergency Medical Condition: Yes Differential Diagnosis Differential Diagnosis: Differential diagnosis of chest pain includes but is not limited to musculoskeletal pain, pulmonary embolism, acute coronary syndrome , pneumonia, pleurisy Medical Records Medical records reviewed: Yes I reviewed the patient's medical records. Lab Data Lab results reviewed: Yes I reviewed the patient's lab results. Result diagrams: 07/28/18 11:10 07/28/18 11:10 Lab Results 07/28/18 07/28/18 07/28/18 Range/Units 11:10 11:10 12:30 WBC 10.7 (4.0-11.0) th/mm3 RBC 4.79 (4.50-5.90) mil/mm3 Hgb 15.3 (13.0-17.0) gm/dL Hct 43.8 (39.0-51.0) % MCV 91.5 (80.0-100.0) fL MCH 31.9 (27.0-34.0) pg MCHC 34.8 (32.0-36.0) % RDW 13.5 (11.6-17.2) % Plt Count 301 (150-450) th/mm3 MPV 9.0 (7.0-11.0) fL Neut % (Auto) 62.7 (16.0-70.0) % Lymph % (Auto) 28.5 (9.0-44.0) % [place] % (Auto) 6.3 (0.0-8.0) % Eos % (Auto) 1.7 (0.0-4.0) % Baso % (Auto) 0.8 (0.0-2.0) % Neut # (Auto) 6.7 (1.8-7.7) th/mm3 Lymph # (Auto) 3.0 (1.0-4.8) th/mm3 [place] # (Auto) 0.7 (0.0-0.9) th/mm3 Eos # (Auto) 0.2 (0.0-0.4) th/mm3 Baso # (Auto) 0.1 (0.0-0.2) th/mm3 WBC Differential . Differential Comment Auto diff final PT 9.9 (9.8-11.6) sec INR 1.0 Ratio APTT 31.3 (23.4-31.7) sec Sodium 140 (136-145) meq/L Potassium 3.7 (3.5-5.1) meq/L Chloride 107 (98-107) meq/L Carbon Dioxide 24.5 (21.0-32.0) meq/L Anion Gap 9 (5-15) meq/L BUN 12 (7-18) mg/dL Creatinine 0.95 (0.60-1.30) mg/dL Estimated GFR 83 L (>89) mL/min Random Glucose 131 H (74-106) mg/dL Calcium 8.7 (8.5-10.1) mg/dL Total Bilirubin 0.4 (0.2-1.0) mg/dL AST 21 (15-37) U/L ALT 34 (12-78) U/L Alkaline Phosphatase 72 (45-117) U/L Troponin I 0.43 H (0.02-0.05) ng/mL Total Protein 7.5 (6.4-8.2) g/dL Albumin 4.3 (3.4-5.0) g/dL Imaging Data Attestation: I personally reviewed and interpreted this imaging study as follows : Radiologist's impression: Chest X-Ray 07/28/18 11:02 CONCLUSION: No evidence of acute cardiopulmonary disease. ECG Data EKG Prior to Arrival: No Attestation: I personally reviewed and interpreted this ECG as follows: (Normal sinus rhythm with rate of 56. No acute STT wave changes.) Discharge Plan Discharge Disposition Patient Disposition: ED Admit(ED Internal Use Only) Discharge Order Discharge Orders: ED Use Only Admit Order (Routine); Ordered 07/28/18 Ordered By: Maddi Strauss Discharge Details Diagnosis: Acute non-ST elevation myocardial infarction (NSTEMI) Physicians Team ED Provider: Maddi Strauss Primary Care Provider: NON STAFF,PROVIDER Attending Provider: Jennifer House Discharge Interventions Interventions: Vital Signs Last Done: 07/28/18 12:30 Status ED Status: Left Department Discharge Information Discharge Date/Time: 07/28/18 14:06
--- NOTE | 2018-07-28 11:34 | XR ---
EXAM DATE: 07/28/2018 11:28 AM EST AGE/SEX: 52 years / Male INDICATIONS: Chest pain. CLINICAL DATA: This is the patient's initial encounter. Patient reports that signs and symptoms have been present for 3 days and indicates a pain score of 5/10. MEDICAL/SURGICAL HISTORY: Myocardial infarction. . several heart stents COMPARISON: [facility] [place], CHEST 2V PA&LAT, 01/30/2018. . FINDINGS: A single AP view of the chest demonstrates the lungs to be symmetrically aerated without evidence of mass, infiltrate or effusion. The cardiomediastinal contours are unremarkable. Osseous structures a re intact. CONCLUSION: No evidence of acute cardiopulmonary disease. Electronically signed by: John Husain MD Board Certified Radiologist 07/28/2018 11:32 AM EST
[2018-07-28 11:42] LABS: Alanine Aminotransferase 34 U/L (12-78); Albumin 4.3 g/dL (3.4-5.0); Anion Gap 9 meq/L (5-15); Aspartate Aminotransferase 21 U/L (15-37); Blood Urea Nitrogen 12 mg/dL (7-18); Calcium 8.7 mg/dL (8.5-10.1); Carbon Dioxide 24.5 meq/L (21.0-32.0); Chloride 107 meq/L (98-107); Glomerular Filtration Rate 83 mL/min (>89); Glucose,Random 131 mg/dL (74-106); Potassium 3.7 meq/L (3.5-5.1); Sodium 140 meq/L (136-145)
[2018-07-28 11:46] LABS: Alkaline Phosphatase 72 U/L (45-117); Total Protein 7.5 g/dL (6.4-8.2); Troponin I 0.43 ng/mL (0.02-0.05)
[2018-07-28] MEDS ORDERED: Heparin 10,000 UNITS/10 ML Vial (for IV use) IV.PUSH STA (11:56)
[2018-07-28] MEDS ORDERED: Heparin Drip 25,000 UNIT/250 ML BAG IV.CONT PRN (11:56)
[2018-07-28] MEDS ORDERED: Bisacodyl 10 MG Supp RECTAL PRN (12:58)
[2018-07-28 12:59] LABS: Activated Partial Thrombo Time 31.3 sec (23.4-31.7); Prothrombin Time 9.9 sec (9.8-11.6)
--- NOTE | 2018-07-28 13:04 | P.HPIM ---
History of Present Illness Primary Care Physician: PROVIDER NON STAFF Chief Complaint: Chest pain History of Present Illness: The patient is a very pleasant 52-year-old male with past medical history of coronary artery disease and multiple stents placement last summer by cardiology Dr. Case. The patient presented with complaints of chest pain intermittent for the past week however patient has severe chest pain yesterday and overnight not relieved by nitro and decided to come to the emergency room for further evaluation. The patient says he is very compliant with all the medications including Brilinta and aspirin. The patient has substernal chest pain relieved by nitro paste placed in the emergency room. There is no associated lightheadedness, nausea or vomiting. No palpitations. No lower extremity edema. Denies fever or chills no shortness of breath or cough. No abdominal pain. No urinary complaints. Review of Systems Review of Systems: all other systems reviewed are negative [facility] Medical History Medical History Coronary artery disease (Acute) Patient denies medical problems (Acute) Surgical History Surgical History No history of previous surgery (Acute) S/P cardiac catheterization (Acute) Family History Family History Father Coronary artery disease Mother Colon cancer Social History Social History Substance History: No History of Abuse Second Hand Smoke Exposure: No Smoking Status: Former smoker Tobacco Type: Cigarettes How Often Do You Have a Drink Containing Alcohol: Never Recent Travel in [facility] within the Last 8 Weeks: No Recent Out of Country Travel within the Last 8 Weeks: No Immunization History Tetanus Immunization: <5 Years Medications and Allergies Allergies Allergy/AdvReac Type Severity Reaction Status Date / Time latex Allergy Anaphylaxis Verified 01/19/18 12:15 morphine Allergy Hives Verified 02/01/18 08:37 Mtldaar-Bwt-Wtl Reductase Allergy Hives Verified 02/01/18 08:37 Inhibitor Home Medications Medication Instructions Recorded Confirmed Type acetaminophen [Tylenol] 650 mg PO Q6H PRN 07/28/18 07/28/18 History aspirin [Aspir-81] 81 mg PO DAILY 07/28/18 07/28/18 History lisinopril 5 mg PO DAILY 07/28/18 07/28/18 History metoprolol tartrate 12.5 mg PO BID 07/28/18 07/28/18 History pravastatin 40 mg PO DAILY 07/28/18 07/28/18 History ticagrelor [Brilinta] 90 mg PO BID 07/28/18 07/28/18 History Active Medications: Active Medications Acetaminophen (Tylenol) 650 mg PO Q4H PRN PRN Reason: Temp > 100.4 Al Hydroxide/Mg Hydroxide (Milk Of Magnesia Liq) 30 ml PO Q12H PRN PRN Reason: Mild Constipation Aspirin (Ecotrin) 81 mg PO DAILY RAOUL Bisacodyl (Dulcolax Supp) 10 mg RECTAL DAILY PRN PRN Reason: SEVERE CONSITIPATION Heparin Sodium (Porcine) (Heparin Inj) 2,500 units IV.PUSH UNSCH PRN PRN Reason: aPTT 25-39 Heparin Sodium/Dextrose (Heparin/D5w 25,000 U/250 Ml) 25,000 unit in 250 mls @ 0 mls/hr IV.CONT TITRATE PRN; Protocol PRN Reason: Per Protocol Lactulose (Lactulose Liq) 30 ml PO DAILY PRN PRN Reason: SEVERE CONSITIPATION Lisinopril (Prinivil) 5 mg PO DAILY [facility] Metoprolol Tartrate (Lopressor) 12.5 mg PO BID [facility] Ondansetron HCl (Zofran Inj) 4 mg IV.PUSH Q6H PRN PRN Reason: NAUSEA OR VOMITING Pravastatin Sodium (Pravachol) 40 mg PO DAILY [facility] Senna/Docusate Sodium (Chely-Colace) 1 tab PO BID [facility] Sennosides (Senokot) 17.2 mg PO Q12H PRN PRN Reason: Moderate Constipation Sodium Chloride (Ns Flush) 2 ml IV.FLUSH UNSCH PRN PRN Reason: FLUSH AFTER USING IV ACCESS Sodium Chloride (Ns Flush) 2 ml IV.FLUSH BID [facility] Sodium Chloride (Ns Flush) 2 ml IV.FLUSH PRN PRN PRN Reason: FLUSH AFTER USING IV ACCESS Ticagrelor (Brilinta) 60 mg PO BID [facility] Physical Exam Vital signs: Vital Signs 07/28/18 10:51 07/28/18 10:53 07/28/18 11:02 Temperature 97.3 F L Pulse Rate 70 66 Respiratory Rate 19 16 Blood Pressure 136/65 170/78 H Pulse Oximetry 100 97 07/28/18 11:06 Temperature Pulse Rate Respiratory Rate Blood Pressure Pulse Oximetry 100 Intake & Output 07/27/18 07/28/18 07/28/18 18:59 06:59 18:59 Weight 98.883 kg Narrative: GENERAL: 52-year-old male, well-nourished well-developed appears in some distress due to chest pain SKIN: Warm and dry. HEAD: Atraumatic. Normocephalic. EYES: Pupils equal and round. No scleral icterus. No injection or drainage. ENT: No nasal bleeding or discharge. Mucous membranes pink and moist. NECK: Trachea midline. No JVD. CARDIOVASCULAR: Regular rate and rhythm. RESPIRATORY: No accessory muscle use. Clear to auscultation. Breath sounds equal bilaterally. GASTROINTESTINAL: Abdomen soft, non-tender, nondistended. Hepatic and splenic margins not palpable. MUSCULOSKELETAL: Extremities without clubbing, cyanosis, or edema. No obvious deformities. NEUROLOGICAL: Awake and alert. No obvious cranial nerve deficits. Motor grossly within normal limits. Five out of 5 muscle strength in the arms and legs. Normal speech. PSYCHIATRIC: Appropriate mood and affect; insight and judgment normal. Results Labs CBC & Chem 7: 07/28/18 11:10 07/28/18 11:10 Imaging Impressions Chest X-Ray 07/28/18 11:02 CONCLUSION: No evidence of acute cardiopulmonary disease. Caprini VTE Risk Assessment Caprini VTE Risk Assessment: Moderate/High Risk (score >= 2) Caprini Risk Assessment Model: Point Value = 1 Point Value = 2 Point Value = 3 Point Value = 5 Age 41-60 Minor surgery BMI > 25 kg/m2 Swollen legs Varicose veins or History of unexplained or recurrent spontaneous Oral contraceptives or hormone replacement Sepsis (< 1 month) Serious lung disease, including pneumonia (< 1 month) Abnormal pulmonary function Acute myocardial infarction Congestive heart failure (< 1 month) History of inflammatory bowel disease Medical patient at bed rest Age 61-74 Arthroscopic surgery Major open surgery (> 45 min) Laparoscopic surgery (> 45 min) Malignancy Confined to bed (> 72 hours) Immobilizing plaster cast Central venous access Age >= 75 History of VTE Family history of VTE Factor V Leiden Prothrombin [id number] Lupus anticoagulant Anticardiolipin antibodies Elevated serum homocysteine Heparin-induced thrombocytopenia Other congenital or acquired thrombophilia Stroke (< 1 month) Elective arthroplasty Hip, pelvis, or leg fracture Acute spinal cord injury (< 1 month) Prophylaxis Regimen: Total Risk Factor Score Risk Level Prophylaxis Regimen 0-1 Low Early ambulation 2 Moderate Order ONE of the following: *Sequential Compression Device (SCD) *Heparin 5000 units SQ BID 3-4 Higher Order ONE of the following medications: *Heparin 5000 units SQ TID *Enoxaparin/Lovenox 40 mg SQ daily (WT < 150 kg, CrCl > 30 mL/min) *Enoxaparin/Lovenox 30 mg SQ daily (WT < 150 kg, CrCl > 10-29 mL/min) *Enoxaparin/Lovenox 30 mg SQ BID (WT < 150 kg, CrCl > 30 mL/min) AND/OR *Sequential Compression Device (SCD) 5 or more Highest Order ONE of the following medications: *Heparin 5000 units SQ TID (Preferred with Epidurals) *Enoxaparin/Lovenox 40 mg SQ daily (WT < 150 kg, CrCl > 30 mL/min) *Enoxaparin/Lovenox 30 mg SQ daily (WT < 150 kg, CrCl > 10-29 mL/min) *Enoxaparin/Lovenox 30 mg SQ BID (WT < 150 kg, CrCl > 30 mL/min) AND *Sequential Compression Device (SCD) Assessment and Plan Plan The patient is a very pleasant 52-year-old male with past medical history of coronary artery disease S/P multiple stents last summer by Dr. Case. The patient presented to the emergency room with complaints of chest pain. Cardiology consulted discussed with Dr. Case patient will go for cardiac cath Chest pain History of coronary artery disease with stents placement Started on heparin drip Nitropaste N.p.o. plan for cardiac cath by Dr. Case his cardiology Restart home medications Monitor vital signs closely Discussed with the patient, family at bedside very supportive, ER physician, Dr. Case cardiology
[2018-07-28] MEDS ORDERED: Heparin/NS PF Inj 1,000 ML ONE (14:11)
[2018-07-28] MEDS ORDERED: fentaNYL Citrate Inj 100 MCG/2 ML Ampul ONE (14:12)
[2018-07-28] MEDS ORDERED: Heparin 10,000 UNITS/10 ML Vial (for IV use) ONE (14:12)
--- NOTE | 2018-07-28 16:01 | CATHPROC ---
[facility] Fin[facility] HIS Report Study Information Study Number Admission Scheduled Start Study Start [id number] Jul 28 2018 1:04PM 07/28/2018 Jul 28 2018 2:09PM [facility] Cardiac Catheterization Admit Source Facility Department Other [facility] - Bpm Analyst Physician and Clinical Staff Initial MD Case, Roque [employer] Aid Labor Tomas Beckham RN Other cathlab, cathlab Recorder Guicho Nguyễn RCIS(BS) Scrub Danielle Manuel ,RT(R) Procedures Performed Procedure Location (Site) Vessel Name Coronary Angiograms LCA Left Coronary Coronary Angiograms RCA Right Coronary Drug Eluting Inflatio RCA Dist Right Coronary L Heart Cath PTCA RCA Dist Right Coronary Wire insertion Radial (right) Radial Art. Equipment Time Assignment Desk Assistant Description Size Mfg Part Number Used/Scraped TRANSDUCER, TRIntivixARDEN [id number] 14:10 [employer] JUAREZ * Used W/STOCKCOCK *[id number] [id number] *[id number] *[id number] *[id number] 14:10 [employer] BLANKET,WARM AIR CCL * Used *[id number] 14:10 [employer] PACK, CCL CUSTOM * Used *[id number] 14:10 [employer] SUPPORT, ARTERIAL ADULT [id number] *[id number] Used [id number] 15:13 [employer] BALLOON, 2.0 X 12MM EUPHORA 12MM Used *[id number] BALLOON, 2.25 X 12MM NC [id number] 15:24 [employer]ONIC 12MM Used EUPHORA *[id number] 15:01 [employer] BALLOON, 2.5 X 12MM EUPHORA 12MM Used *[id number] 14:43 [employer] JL 3.5 DXTERITY CATHETER FR 5 Used *[id number] 15:17 [employer] STENT, 2.25 15MM TOÑA 2.25 15MM [id number] Used [id number] 15:31 [employer]/AVE EBU 3.5 Z2 GUIDE CATHETER FR 6 Used *[id number] 14:54 [employer] MEDICAL 30 LIYAH INDEFLATOR Used *[id number] 14:56 [employer] MEDICAL WIRE, EXCHANGE 260CM 3MMJ 260CM Used *[id number] 14:10 [employer] MEDICAL WIRE, EXCHANGE 260CM 3MMJ 260CM Used *[id number] 14:10 NAMIC MANIFOLD, 4 PORT * Used *[id number] 14:10 [employer] OMNIPAQUE, 350 MG, 150ML 150ML [id number] Used SHEATH, FR6 TRANSRADIAL [id number] 14:10 [employer] MEDICAL FR 6 Used SLENDER 10CM *[id number] 15:35 [employer] PRIME WIRE, VERRATA 185CM 185CM Used *[id number] Equipment Model, Serial, Lot Number and Expiration Data Description Model Number Serial Number Lot Number Expiration Date STENT, 2.25 15MM TOÑA [id number] 02-01-2020 History: Current Medications Medication Dosage/Unit Route Frequency Last Date/Time Taken Beta Justine BRILLINTA ASA History: Allergies Allergy Reaction latex Anaphylaxis Morphine rash History: Risk Factors Family History of Hypertension Dyslipidemia Previous [place] Previous Heart Failure Premature CAD Yes Yes No Yes No Prior Valve Prior PCI Prior PCIDate Prior CABG Surgery No Yes 01/31/2018 No Cerebrovascular Peripheral Artery Chronic Lung On Dialysis Diabetes Disease Disease Disease No No No No No History: Risk Factors Selection Items Current Smoker History: Symptoms/Diagnosis Selection Items Chest pain History: CV Disease Selection Items Known CAD [place] History: Stress Tests Stress or Imaging Studies Performed No History: Other Disease Selection Items CAD History: Other Current Smoker Method Quit Packs a Day Years Used Pack Years No Cigarettes 1 Years Ago 1 30 30 Labs Hgb (g/dl) Hct (%) WBC (l/cumm) Platelets (thousands) 11.60-17.00 35.00-51.00 4.00-11.00 150.00-450.00 15.3 43.8 10.7 301 Glucose (mg/dl) BUN (mg/dl) Creatinine (mg/dl) BUN:Creatinine (1:x) 74.00-106.00 7.00-18.00 0.50-1.30 10.00-20.00 131 12 0.9 13.3 Na (meq/l) K (meq/l) 136.00-145.00 3.50-5.10 140 3.7 INR (PTT:PT) 0.90-1.10 1 Troponin I (ng/ml) CPK-MB (ng/ML) 0.02-0.05 0.50-3.60 0.43 Not Drawn Medication Medication Total Dose (Bolus/Oral) Medication Total Dosage/Unit 1% XYLOCAINE 2 mL FENTANYL 75 mcg HEPARIN 5900 units RADIAL COCKTAIL 5 mL (Bolus) VERSED 1.5 mg Medications (Bolus/Oral) Medication Time Given Dosage/Unit Administered By Reason 1% XYLOCAINE 07/28/2018 2:28:27 PM 2 mL Roque Case 2 mL 1% XYLOCAINE given in lab by Roque Case in Right Radial via Subcutaneous. VERSED 07/28/2018 2:29:45 PM 1 mg Bhavani, Tomas 1 mg VERSED given in lab by Tomas Beckham RN in Left Antecubital via Peripheral IV. Ordered by Roque Elaine FENTANYL 07/28/2018 2:30:56 PM 50 mcg Bhavani, Tomas 50 mcg FENTANYL given in lab by Tomas Beckham RN in Left Antecubital via Peripheral IV. Ordered by Roque Colunga Ntg 200mcg Verapamil 2.5mg Heparin RADIAL COCKTAIL 07/28/2018 2:34:59 PM 5 mL (Bolus) Roque Case 3000U 5 mL (Bolus) RADIAL COCKTAIL given in lab by Tomas Beckham RN via Radial. Using [Solution Name]. Orde red by Roque Case Reason: Ntg 200mcg Verapamil 2.5mg Heparin 3900U. HEPARIN 07/28/2018 2:54:41 PM 5900 units Bhavani, Tomas 5900 units HEPARIN given in lab by Tomas Beckham RN in Left Antecubital via Peripheral IV. Ordered by Roque Case VERSED 07/28/2018 3:23:16 PM 0.5 mg Bhavani, Tomas 0.5 mg VERSED given in lab by Tomas Beckham RN in Left Antecubital via Peripheral IV. Ordered by Roque Yu FENTANYL 07/28/2018 3:23:23 PM 25 mcg Bhavani, Tomas 25 mcg FENTANYL given in lab by Tomas Beckham RN in Left Antecubital via Peripheral IV. Ordered by Roque Colunga Medication (Drip) Medication Time Given Dosage/Unit Concentration/Unit Diluent (ml) Solution IV Solutions 07/28/2018 2:09:46 PM 0 mL (IV) 500 NaCl .9 Patient arrived on IV Solutions in Left Antecubital via Peripheral IV. Pump/Drip Flow = 20 ml/hr usin g NaCl .9. Initial Case Assessment Cardiovascular HR Rhythm NIBP Chest Pain 60 nsr 127/73 0 Edema Present Skin color Skin None Normal Warm Dry Circulatory - Right Pulses Dorsalis Pedis Femoral Radial 2 2 2 Scale (0,1,2,3,4,d) Scale (0,1,2,3,4,d) Neurological State Oriented to time-place- Alert Moves all extremities person Respiration - General Respiration Rate SpO2 (%) (B/min) 15 98 Final Case Assessment Cardiovascular HR Rhythm NIBP Chest Pain 63 nsr 129/70 0 Edema Present Skin color Skin None Normal Warm Dry Circulatory - Right Pulses Dorsalis Pedis Femoral Radial 2 2 2 Scale (0,1,2,3,4,d) Scale (0,1,2,3,4,d) Neurological State Oriented to time-place- Alert Moves all extremities person Respiration - General Respiration Rate SpO2 (%) (B/min) 15 98 Chronological Log Time Study Chronological Log 14:04:55 Patient arrived via Bed. Heparin DCed upon [facility] up per MD. 14:04:57 Patient Name, D.O.B, / Armband Verified By R.N. 14:04:58 Consent signed by the physician and the patient and verified by the Bpm Analyst staff. 14:09:25 Pre-op and post- op instructions given; patient acknowledges understanding of instructions. 14:09:27 Presedation assessment performed by Bpm Analyst RN. 14:09:28 Allens test performed on the right radial and ulnar artery. POSITIVE. 14:09:32 Immediate Presedation assesment performed by physician. 14:09:33 Patient has been NPO for More than 6Hrs. 14:09:33 Skin Breakdown- none per patient 14:09:40 Patient Warmer Placed on the Table. 14:09:41 Sara Prominences Protected 14:09:42 A # 20 IV was noted in the Antecubital (right). Grade = 0 14:09:43 A # 20 IV was noted in the Hand (left). Grade = 0 14:09:46 Patient arrived on IV Solutions in Left Antecubital via Peripheral IV. Pump/Drip Flow = 20 ml/hr using NaCl .9. 14:09:47 History and physical on the chart or being dictated. Vitals capture started with the following parameters, Patient=Adult, Interval=5 min, Initial Pr yzskri=849 mmHg, 14:10:30 Deflation Rate=5 mmHg, Cuff placed on Left Arm 14:10:55 Reference ECG taken 14:11:13 HR=58 bpm, EVJG=545/74 mmhg, SpO2=98.0 %, Resp=20 B/min, Pain=0, Audrey=10, Myers=2 14:16:08 HR=58 bpm, VTPN=110/73 mmhg, SpO2=98.0 %, Resp=13 B/min, Pain=0, Audrey=10, Myers=2 Assessment: Initial Case, HR=60 BPM, Rhythm=nsr, REPM=617/73 mmhg, Chest Pain=0, Edema=None, Co ron=Normal, Skin = Warm, Dry 14:20:38 Right Pulses: Chi Ped=2, Femoral=2, Radial=2 Neurological: State=Alert, Ox3, LOVE Respiration: Resp=15 B/min, SpO2=98 % 14:21:07 Right Radial and groin(s) prepped with 2% chlorhexidine, and draped after a 3 min. waiting time. 14:21:09 HR=61 bpm, VEFX=237/72 mmhg, SpO2=96.0 %, Resp=20 B/min, Pain=0, Audrey=10, Myers=2 14:22:06 MD arrived. 14:26:08 HR=63 bpm, SMNG=989/74 mmhg, SpO2=94.0 %, Resp=26 B/min, Pain=0, Audrey=10, Myers=2 14:26:44 Pressure channel 1 zeroed. 14:28:17 Immediate Presedation assesment performed by physician. Time Out. Correct patient, correct procedure, correct physician, labs, allergies, and equipment verified with builder's labourer 14:28:18 team present. Fire risk assesment completed (see hard stop sheet for coding). Time Out Conc urred by MD and individual staff in procedure. 14:28:22 Case Start 14:28:27 2 mL 1% XYLOCAINE given in lab by Roque Case in Right Radial via Subcutaneous. 14:29:45 1 mg VERSED given in lab by Tomas Beckham RN in Left Antecubital via Peripheral IV. Ordered by Roque Case 50 mcg FENTANYL given in lab by Tomas Beckham RN in Left Antecubital via Peripheral IV. Ordered by Roque Case 14:30:56 G. 14:31:09 HR=59 bpm, KKRX=972/72 mmhg, SpO2=97.0 %, Resp=15 B/min, Pain=0, Audrey=10, Myers=2 14:34:43 Access site was Right Radial Artery . A SHEATH, FR6 TRANSRADIAL SLENDER 10CM FR 6 was advanced into the Radial (right) using the Perc utaneous 14:34:49 technique. 5 mL (Bolus) RADIAL COCKTAIL given in lab by Tomas Beckham RN via Radial. Using [Solution Name] . Ordered by 14:34:59 Roque Case Reason: Ntg 200mcg Verapamil 2.5mg Heparin 3900U. 14:36:06 HR=65 bpm, QRFT=481/79 mmhg, SpO2=92 %, Resp=18 B/min, Pain=0, Audrey=10, Myers=2 A JR 4.0 INFINITI CATHETER FR 5 was advanced over a wire. OMNIPAQUE, 350 MG, 150ML 150ML was us ed for 14:37:38 injections. Recorded Pressure: LV, HR=82, Condition=Condition 1 14:40:04 (Left Ventricle) LV 106/-4/2 Recorded Pressure: LV, Ao, HR=72, Condition=Condition 1 14:40:22 (Left Ventricle) LV 99/0/4, (Aorta) Ao 107/76/91 Recorded Pressure: Ao, HR=97, Condition=Condition 1 14:40:34 (Aorta) Ao 94/73/84 14:41:11 HR=75 bpm, BJEH=707/58 mmhg, SpO2=94.0 %, Resp=15 B/min, Pain=0, Audrey=10, Myers=2 14:41:49 The RCA was injected and visualized at various angles. OMNIPAQUE, 350 MG, 150ML 150ML used . After removing the current catheter a JL 3.5 DXTERITY CATHETER FR 5 was advanced over a WIRE, E XCHANGE 260CM 14:42:42 3MMJ 260CM. 14:46:08 HR=73 bpm, IELJ=782/72 mmhg, SpO2=96.0 %, Resp=19 B/min, Pain=0, Audrey=10, Myers=2 14:49:24 The LCA was injected and visualized at various angles. OMNIPAQUE, 350 MG, 150ML 150ML used . 14:51:12 HR=60 bpm, CQZY=863/71 mmhg, SpO2=96.0 %, Resp=19 B/min, Pain=0, Audrey=10, Myers=2 After removing the current catheter a JR 4.0 GUIDE CATHETER FR 6 was advanced over a WIRE, EXCH SHEN 260CM 14:54:13 3MMJ 260CM. 5900 units HEPARIN given in lab by Tomas Beckham, RN in Left Antecubital via Peripheral IV. Orde red by Roque Case 14:54:41 G. 14:56:13 HR=62 bpm, AOVB=270/73 mmhg, SpO2=96.0 %, Resp=15 B/min, Pain=0, Audrey=10, Myers=2 14:57:57 An ASAXerox MARLYS BLUE 180CM (REF: [id number]. EXP: ) wire was inserted via Radial ( right). 15:01:14 HR=58 bpm, LDNP=916/63 mmhg, SpO2=95.0 %, Resp=17 B/min, Pain=0, Audrey=10, Myers=2 15:04:32 Wire removed After removing the current catheter a AL .75 GUIDE CATHETER FR 6 was advanced over a WIRE, EXCH SHEN 260CM 15:05:23 3MMJ 260CM. 15:06:13 HR=65 bpm, SMXG=887/63 mmhg, SpO2=95.0 %, Resp=15 B/min, Pain=0, Audrey=10, Myers=2 15:07:00 Activated Clotting Time Drawn 15:07:05 A ASAHI MARLYS BLUE 180CM (REF: [id number]. EXP: ) wire was inserted via Radial (r ight). 15:09:55 ACT (Normal Range 90-180) = 248 15:11:12 HR=75 bpm, LXSV=166/67 mmhg, SpO2=96.0 %, Resp=17 B/min, Pain=0, Audrey=10, Myers=2 15:11:22 Interventional wire has crossed the lesion 15:14:03 A balloons was inserted over wire via the ~SITE~. A BALLOON, 2.0 X 12MM EUPHORA 12MM over a wire in the RCA Dist was inflated using a 30 LIYAH INDE FLATOR at 8 15:14:04 liyah for 10 sec. A BALLOON, 2.0 X 12MM EUPHORA 12MM over a wire in the RCA Dist was inflated using a 30 LIYAH INDE FLATOR at 8 15:14:18 liyah for 12 sec. 15:16:13 HR=58 bpm, IEVC=022/70 mmhg, SpO2=97.0 %, Resp=13 B/min, Pain=0, Audrey=10, Myers=2 15:17:20 Balloon Removed. 15:17:23 A STENT, 2.25 15MM TOÑA 2.25 15MM was advanced through a AL .75 GUIDE CATHETER FR 6 over a wire. 15:21:14 HR=67 bpm, FSBS=798/71 mmhg, SpO2=96.0 %, Resp=9 B/min, Pain=0, Audrey=10, Myers=2 A STENT, 2.25 15MM TOÑA 2.25 15MM was deployed using a 30 LIYAH INDEFLATOR at 12 atmospheres for 30 seconds 15:21:22 in the RCA Dist. 15:21:59 Delivery device removed 15:23:16 0.5 mg VERSED given in lab by Tomas Beckham RN in Left Antecubital via Peripheral IV. Order ed by Roque Case GAudelia 25 mcg FENTANYL given in lab by Tomas Beckham RN in Left Antecubital via Peripheral IV. Ordered by Roque Case 15:23:23 G. 15:23:30 A BALLOON, 2.25 X 12MM NC EUPHORA 12MM was inserted over wire via the Radial (right). A BALLOON, 2.25 X 12MM NC EUPHORA 12MM over a wire in the RCA Dist was inflated using a 30 LIYAH INDEFLATOR at 15:25:20 14 liyah for 20 sec. A BALLOON, 2.25 X 12MM NC EUPHORA 12MM over a wire in the RCA Dist was inflated using a 30 LIYAH INDEFLATOR at 15:26:09 14 liyah for 14 sec. 15:26:13 HR=71 bpm, JHOQ=017/76 mmhg, SpO2=91.0 %, Resp=14 B/min, Pain=0, Audrey=10, Myers=2 15:28:25 Balloon Removed. 15:28:30 Wire removed After removing the current catheter a EBU 3.5 Z2 GUIDE CATHETER FR 6 was advanced over a WIRE, EXCHANGE 15:31:08 260CM 3MMJ 260CM. 15:31:14 HR=53 bpm, GBJU=265/75 mmhg, SpO2=95.0 %, Resp=8 B/min, Pain=0, Audrey=10, Myers=2 15:35:14 Pressure channel 1 zeroed. 15:35:42 A PRIME WIRE, VERRATA 185CM 185CM was inserted via Radial (right). 15:36:15 HR=60 bpm, WTEE=114/75 mmhg, SpO2=99.0 %, Resp=14 B/min, Pain=0, Audrey=10, Myers=2 15:41:14 HR=51 bpm, IAYS=746/70 mmhg, SpO2=97 %, Resp=13 B/min, Pain=0, Audrey=10, Myers=2 15:45:03 Flow Wire was was placed in the LAD Mid. The FFR measures ~FFR~ percent. The IFR measures 9 2. 15:45:38 The PRIME WIRE, VERRATA 185CM 185CM was removed. 15:46:15 HR=63 bpm, URUJ=494/70 mmhg, SpO2=96.0 %, Resp=18 B/min, Pain=0, Audrey=10, Myers=2 15:46:20 Catheter was removed 15:46:22 Case End (Physician broke scrub) Assessment: Final Case, HR=63 BPM, Rhythm=nsr, URDU=190/70 mmhg, Chest Pain=0, Edema=None, [place] r=Normal, Skin = Warm, Dry 15:46:28 Right Pulses: Chi Ped=2, Femoral=2, Radial=2 Neurological: State=Alert, Ox3, LOVE Respiration: Resp=15 B/min, SpO2=98 % 15:46:54 Catheter(s) removed without difficulty Radial Compression Device Used. ~VOLUME ML~ mLs of air placed in closure device. Affected hand ~O2 SATURATION~ 15:46:57 % O2 saturation. 15:48:00 Sterile dressing applied to site 15:48:01 No case complications noted. 15:48:02 Cine recording checked. 15:48:02 Bedside Report will be given. 15:48:03 Implantable Device card placed in patient's chart. 15:48:05 A Left Heart Cath was performed. 15:51:18 HR=66 bpm, KILX=697/70 mmhg, SpO2=95 %, Resp=17 B/min, Pain=0, Audrey=10, Myers=2 15:56:17 HR=34 bpm, ITSM=828/70 mmhg, SpO2=98.0 %, Resp=16 B/min, Pain=0, Audrey=10, Myers=2 End Study - Contrast Media Used In Study Contrast Total Opened (mL) Total Used (mL) Total Wasted (mL) Omnipaque 350 135 135 0 End Study - Maximum Contrast Load Max Contrast Load (mL) 549.0 End Study - Radiation Exposure Fluoro Time Fluoro Dose (mGy) Cine Dose (uGym2) (minutes) 20.4 4352 [id number] End Study - Patient Disposition Complications Transferred To Interventional Outcome No Bpm Analyst Holding successful
[2018-07-28] MEDS ORDERED: Misc Info for Pharmacy OTHER STA (16:04)
--- NOTE | 2018-07-28 16:39 | ECG ---
Date Performed: 07/28/2018 Time Performed: 10:57:30 PTAGE: 52 years EKG: SINUS BRADYCARDIA BORDERLINE ECG Compared to PREVIOUS TRACING , tracing has normalized. PREVIOUS TRACIN01/30/2018 20.07 DOCTOR: Jonathan Hwang Interpretating Date/Time 07/28/2018 16:37:49
[2018-07-28] MEDS ORDERED: Iohexol 350 MG/ML 100 ML Vial (for Cath Lab) IVCONTRAST ONE (16:44)
[2018-07-28] MEDS ORDERED: Iohexol 350 MG/ML 50 ML Vial (for Cath Lab) IVCONTRAST ONE (16:44)
[2018-07-28] MEDS: Acetaminophen 325 MG Tablet PO PRN (17:49)
[2018-07-28] MEDS ORDERED: Heparin 10,000 UNITS/10 ML Vial (for IV use) IV.PUSH PRN (17:56)
[2018-07-28] MEDS: Metoprolol Tartrate 25 MG Tablet PO SCH (20:23)
[2018-07-28] MEDS: Senna/Docusate Sodium 8.6/50 MG Tablet PO SCH (20:24)
--- NOTE | 2018-07-29 00:23 | MB ---
cc: Roque Case DO DATE: 07/28/2018 REASON FOR CONSULTATION: Chest pain, elevated troponin. HISTORY OF PRESENT ILLNESS: Kevin Kay is a pleasant 52-year-old male, whom I see in the office and presents to [facility] Emergency Room due to chest pain. The patient previously was seen in January and underwent multiple stenting of his RCA and LAD. He has been doing relatively well after that continuing on his aspirin and Brilinta until he has noticed over the past few days, some mild chest pain. He finally called the office and they told him he should come into the emergency room to be evaluated. On arrival, he was noted to have an elevated troponin and I was asked to see him. In seeing him, he is currently hemodynamically stable without chest pain or shortness of breath. PAST MEDICAL HISTORY: 1. Coronary artery disease. 2. Hyperlipidemia. PAST SURGICAL HISTORY: 1. Cardiac catheterization (01/19/2018). Left main normal. LAD multiple lesions of 60-90% throughout. Left circumflex 30%. RCA 70% proximal, 80% distal, 99% posterolateral branch. Underwent PCI of the RCA with [place] drug-eluting stent x3 (proximal RCA 2.75 x 12, distal RCA, 2.5 x 12, mid posterolateral branch 2.25 x 8). Cardiac catheterization (01/31/2018) PCI of the LAD with [place] drug-eluting stent x3 (3 x 15, 2 proximal mid LAD, 2.7 x 8 to mid LAD, 2 x 18 distal LAD). ALLERGIES: 1. LATEX. 2. MORPHINE. 3. STATINS. MEDICATIONS: 1. Originally listed as Brilinta 60 mg, but he is on 90 mg b.i.d. 2. Aspirin 81 mg daily. 3. Lisinopril 5 mg daily. 4. Metoprolol tartrate 12.5 mg b.i.d. 5. Pravastatin 40 mg daily. FAMILY HISTORY: Father had coronary artery disease. Mother had colon cancer. SOCIAL HISTORY: The patient previously smoked, but has since quit. Denies alcohol or drug abuse. REVIEW OF SYSTEMS: Fourteen systems were reviewed including osteopathic. Pertinent positives and negatives above, otherwise negative. PHYSICAL EXAMINATION: VITAL SIGNS: Temperature 97.3, heart rate 70, blood pressure 136/65, respirations 19, pulse oximetry 100% on room air. GENERAL: The patient appears well, in no acute distress. Alert, awake, oriented x3. HEENT: Extraocular muscles intact. Mucous membranes moist. NECK: Supple. No JVD at 45 degrees. No carotid bruits heard bilaterally. Carotid upstroke is brisk in nature. HEART: Regular rate and rhythm. Positive first and second heart sounds with no noted murmurs, gallops or rubs. LUNGS: Clear to auscultation bilaterally. No wheezes, rales or rhonchi. ABDOMEN: Soft, nontender, nondistended. No organomegaly noted. EXTREMITIES: Show no clubbing, cyanosis or edema. Femoral and distal pulses are intact bilaterally. NEUROLOGIC: No focal deficits. SKIN: Warm, dry and intact. OSTEOPATHIC: No kyphoscoliosis, lordosis or paraspinal tender points. LABORATORY DATA: Hemoglobin 15.3, hematocrit 43.8, platelets 301. Potassium 3.7, BUN 12, creatinine 0.95. Troponin 0.43. Electrocardiogram (07/28/2018 at 10:57): Sinus bradycardia. IMPRESSION: 1. Chest pain concerning for coronary insufficiency. 2. Complex percutaneous coronary intervention of coronary artery disease previously. 3. Dga-BB-eklcxreeh myocardial infarction. 4. Hyperlipidemia. RECOMMENDATIONS: 1. Mr. Kay presented with chest pain concerning for coronary insufficiency and as he has an elevated troponin, I have recommended that he go to the cardiac catheterization lab. 2. Risks, benefits, and alternatives have been explained to him and he consents as such. 3. We will continue him on his aspirin, Brilinta, beta thang, lisinopril and statin. 4. Overall, if he is found to have further coronary artery disease, whether that be in-stent restenosis or de domenico CAD, I would recommend that we most likely attempt to increase his statin therapy. He was previously on Lipitor, but had muscle aches and so we may need to attempt Crestor. If this does not work, then he may need to be on a PCS K9 inhibitor. 5. Further recommendations will be made after coronary visualization. Thank you for allowing me to see Kevin Kay. If there are any questions, please do not hesitate to call. Roque Case, DO VGP/sv , 11:47 PM , 12:00 AM
--- NOTE | 2018-07-29 00:42 | MA ---
cc: Roque Case DO DATE: 07/28/2018 PROCEDURE: Left heart catheterization, coronary angiogram, moderate sedation 79 minutes, [place] drug-eluting stent (2.25 x 15) to posterolateral branch, IFR LAD. PREPROCEDURE DIAGNOSIS: Non-ST elevation myocardial infarction, unstable angina, history of coronary artery disease. POSTPROCEDURE DIAGNOSIS: 1. Non-ST elevation myocardial infarction status post [place] drug-eluting stent (2.25 x 15). 2. Posterolateral branch, moderate disease of the left anterior descending artery. MEDICATIONS: Versed 1.5 mg, fentanyl 75 mcg, nitro 200 mcg, verapamil 2.5 mg, heparin 9800 units. CONTRAST USED: 135 mL. FLUOROSCOPY: 20.4 minutes. MODERATE SEDATION: 79 minutes. FRAILTY SCORE: 3. ESTIMATED BLOOD LOSS: 10 mL. PROCEDURAL SUMMARY: Kevin Kay is a pleasant 52-year-old male whom I see in the office and presented with unstable angina to [facility]. He was found to have an elevated troponin and because of this recommend cardiac catheterization. Risks, benefits and alternatives were explained to him and he consented as such. He was brought to the lab and prepped in the usual sterile fashion. Right radial artery was accessed using modified Seldinger technique and placement of a 5/6 [place] slender sheath. This was easily aspirated and flushed. JR4 was advanced over a J-wire to the ascending aorta and across the aortic valve for measurement of left ventricular pressure. This was pulled back across the aortic valve showing no significant gradient of aortic stenosis. JR4 was used for selective angiography of the right coronary artery system. This was exchanged out for a JL3.5, which was used for selective angiography of the left coronary artery system. JL3.5 was removed over a J wire. Please see notes below for intervention. LEFT MAIN: Normal-sized vessel with adequate reflux. It bifurcates into an LAD and circumflex. LAD: Moderate size vessel with proximal portion showing 50% disease with an aneurysmal portion before the lesion. Distal to this, there are 3 stents, which are overall patent with no in-stent restenosis. It gives off 2 small diagonals with no significant disease. LEFT CIRCUMFLEX: Moderate size vessel with 30% disease in the mid portion. It gives off 2 major obtuse marginals with the first one having 30% proximal stenosis. RCA: Moderate size vessel with previous stents in the proximal and distal portion patent with no significant disease. PDA appears to have ostial 50% disease. Posterolateral branch before previous stent placed has a 99% stenosis. Distally, there is JENN 1 flow into the posterolateral branch. LVEDP: 4. INTERVENTION: Due to the patient's chest pain, elevated troponin and JENN 1 flow in the posterolateral branch, I felt that this needed to be intervened on. A JR4 guide was engaged into the RCA. Heparin was given as an anticoagulant. A [place] blue wire was advanced, but due to difficulty with multiple tortuousities as well as previous stents, I felt that the guide needed to be exchanged. Guidewire was exchanged for an AL 0.75 guide. [place] blue wire was then taken distally. A compliant balloon (2 x 12) was used to predilate the lesion. An [place] drug-eluting stent (2.25 x 15) was placed over the stent overlapping distally with the previous stent and deployed. A noncompliant balloon (2.25 x 12) was used to further post-dilate the stent. Final angiogram shows a well-opposed stent with no perforations or dissections. As there was at least moderate disease of the LAD, I felt that this needed to be evaluated also. An EBU 3.5 guide was engaged in left main. A [place] wire was advanced into the distal LAD. IFR was measured at 0.92 showing nonsignificant stenosis. Wire was removed. Guide was removed. Radial band was placed over the arteriotomy site for hemostasis. The patient is on chronic aspirin and Brilinta therapy and was not loaded with further medications. 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 INTERVENTIONAL DATA: Vessel posterolateral branch, lesion length 12, pre-JENN 1, post-JENN 3, post-stenosis 0. IMPRESSION: 1. Non-ST elevation myocardial infarction, status post [place] drug-eluting stent (2.25 x 15) to denote the lesion of the posterolateral branch. 2. Moderate disease of the left anterior descending. 3. Hyperlipidemia. RECOMMENDATIONS: 1. Mr. Kay presented as an NSTEMI and underwent PCI as above. 2. He will continue on aspirin and Brilinta therapy. 3. We will continue him on his beta-thang, statin and DIANA inhibitor therapy. 4. He currently is on pravastatin and had a problem with Lipitor previously. I believe that we should attempt to place him on Crestor as he needs further lipid modification due to his de domenico disease in such a short period of time. If he is unable to tolerate this, then consideration should be made for PCSK9 inhibitor. 5. He will be watched overnight and if stable, in the morning discharged to home for followup with me in the office. 6. He does have moderate disease of his LAD and we will continue medical management of this at this time. Thank you for allowing me to see Kevin Kay. If there are any questions, please do not hesitate to call. Roque Case, VGP/sv , 12:06 AM , 12:20 AM
[2018-07-29 06:19] LABS: Baso # (Auto) 0.1 th/mm3 (0.0-0.2); Baso % (Auto) 0.5 % (0.0-2.0); Eos # (Auto) 0.2 th/mm3 (0.0-0.4); Eos % (Auto) 2.3 % (0.0-4.0); Hemoglobin 14.9 gm/dL (13.0-17.0); Lymph % (Auto) 18.3 % (9.0-44.0); Mean Corpuscular HGB Conc 34.6 % (32.0-36.0); Mean Corpuscular Hemoglobin 31.4 pg (27.0-34.0); Mean Corpuscular Volume 90.7 fL (80.0-100.0); Mean Platelet Volume 9.4 fL (7.0-11.0); Mono # (Auto) 0.8 th/mm3 (0.0-0.9); Mono % (Auto) 7.1 % (0.0-8.0); Neut # (Auto) 7.7 th/mm3 (1.8-7.7); Neut % (Auto) 71.8 % (16.0-70.0); Platelet Count 280 th/mm3 (150-450); Red Blood Count 4.75 mil/mm3 (4.50-5.90); Red Cell Distribution Width 13.6 % (11.6-17.2); White Blood Count 10.7 th/mm3 (4.0-11.0)
[2018-07-29 06:41] LABS: Alanine Aminotransferase 32 U/L (12-78); Albumin 3.8 g/dL (3.4-5.0); Anion Gap 6 meq/L (5-15); Aspartate Aminotransferase 26 U/L (15-37); Blood Urea Nitrogen 12 mg/dL (7-18); Calcium 8.8 mg/dL (8.5-10.1); Carbon Dioxide 25.6 meq/L (21.0-32.0); Chloride 109 meq/L (98-107); Glomerular Filtration Rate 84 mL/min (>89); Glucose,Random 110 mg/dL (74-106); Potassium 4.3 meq/L (3.5-5.1); Sodium 141 meq/L (136-145)
[2018-07-29 06:43] LABS: Alkaline Phosphatase 68 U/L (45-117); Total Protein 6.8 g/dL (6.4-8.2)
[2018-07-29] MEDS: Metoprolol Tartrate 25 MG Tablet PO SCH (08:41)
[2018-07-29] MEDS: Senna/Docusate Sodium 8.6/50 MG Tablet PO SCH (08:41)
[2018-07-29] MEDS ORDERED: Lisinopril 5 MG Tablet PO SCH (09:00)
[2018-07-29] MEDS: Acetaminophen 325 MG Tablet PO PRN (11:21)
[2018-07-29 12:19] VITALS: BP 118/68; RESP 18; TEMP 98.1; O2SAT 94
[2018-07-29 13:08] VITALS: PULSE 74
--- NOTE | 2018-07-29 13:14 | P.PNIM ---
Subjective Interval history: Patient says he is feeling well. Would like to go home. Physical Exam Vital signs: Vital Signs 07/28/18 18:19 07/28/18 19:00 07/28/18 20:00 Temperature 97.6 F 98 F Pulse Rate 79 62 56 L Respiratory Rate 18 19 Blood Pressure 135/79 124/72 Pulse Oximetry 95 96 07/28/18 21:00 07/28/18 22:00 07/28/18 23:00 Temperature Pulse Rate 62 64 67 Respiratory Rate Blood Pressure Pulse Oximetry 07/28/18 23:49 07/29/18 00:00 07/29/18 01:00 Temperature 97.9 F Pulse Rate 76 62 58 L Respiratory Rate 18 Blood Pressure 96/69 L Pulse Oximetry 97 07/29/18 02:00 07/29/18 03:00 07/29/18 03:40 Temperature 97.9 F Pulse Rate 78 60 73 Respiratory Rate 19 Blood Pressure 116/70 Pulse Oximetry 97 07/29/18 04:00 07/29/18 05:00 07/29/18 06:00 Temperature Pulse Rate 76 78 72 Respiratory Rate Blood Pressure Pulse Oximetry 07/29/18 07:00 07/29/18 08:00 07/29/18 09:00 Temperature 98.5 F Pulse Rate 68 73 83 Respiratory Rate 16 Blood Pressure 116/76 Pulse Oximetry 98 07/29/18 10:00 07/29/18 10:25 07/29/18 11:00 Temperature Pulse Rate 98 H 74 Respiratory Rate Blood Pressure Pulse Oximetry 98 07/29/18 12:00 07/29/18 13:00 Temperature 98.1 F Pulse Rate 78 74 Respiratory Rate 18 Blood Pressure 118/68 Pulse Oximetry 94 L Intake & Output 07/28/18 07/29/18 07/29/18 18:59 06:59 18:59 Intake Total 5 / 5 480 / 480 Output Total 300 / 300 Balance 5 / 5 180 / 180 Weight 98.883 kg 64 kg Intake: IV 5 / 5 Heparin/NS PF Inj 1,000 ML @ 0 5 / 5 mls/hr .ROUTE .[employer] Rx#: [id number] Oral 480 / 480 Output: Urine 300 / 300 Other: # Voids 4 Date of Last Bowel Movement 07/28/18 Narrative: GENERAL: Patient walking in room. Appears comfortable. Alert and oriented x4. SKIN: Warm and dry. HEAD: Normocephalic. EYES: No scleral icterus. No injection or drainage. NECK: Supple, trachea midline. No JVD. CARDIOVASCULAR: Regular rate and rhythm without murmurs, gallops, or rubs. RESPIRATORY: Breath sounds equal bilaterally. No accessory muscle use. GASTROINTESTINAL: Abdomen soft, non-tender, nondistended. MUSCULOSKELETAL: No cyanosis, or edema. BACK: Nontender without obvious deformity. No CVA tenderness. Results Labs CBC & Chem 7: 07/29/18 05:46 07/29/18 05:46 Assessment and Plan Plan The patient is a very pleasant 52-year-old male with past medical history of coronary artery disease S/P multiple stents last summer by Dr. Case. The patient presented to the emergency room with complaints of chest pain. Cardiology consulted discussed with Dr. Case patient will go for cardiac cath Chest pain History of coronary artery disease with stents placement Started on heparin drip Nitropaste N.p.o. plan for cardiac cath by Dr. Case his cardiology Dr. Restart home medications Monitor vital signs closely = 07/29. Patient underwent cardiac catheterization with stenting. Please see report. Patient will continue on aspirin, Brilinta. As per discussion with cardiology will put patient on rosuvastatin, add vitamin co-Q10. Patient is to stop medication if he experiences side effect of muscle pain. Discharge home and follow-up with cardiology as outpatient. Discussed with the patient, , Dr. Case
--- NOTE | 2018-07-29 14:34 | ECG ---
Date Performed: 07/28/2018 Time Performed: 13:33:10 PTAGE: 52 years EKG: Sinus rhythm NORMAL ECG PREVIOUS TRACING : 07/28/2018 10.57 Since the previous tracing, no significant change noted DOCTOR: Ulysses Vargas Interpretating Date/Time 07/29/2018 14:28:14
--- NOTE | 2018-07-29 15:56 | ECG ---
Date Performed: 07/28/2018 Time Performed: 21:05:34 PTAGE: 52 years EKG: Sinus rhythm Nondiagnostic T wave changes in inferior las. Possible inferior infarct - age undetermined Tall R V1 /V2 probably reflect the infarct Lateral T wave changes may be due to myocardial ischemia Since previ ous tracing, no significant change noted Abnormal ECG PREVIOUS TRACING : 07/28/2018 13.33 DOCTOR: Ulysses Vargas Interpretating Date/Time 07/29/2018 15:54:57
--- NOTE | 2018-07-29 23:11 | P.PNCA ---
Subjective Interval history: No events overnight No chest pain Medications and Allergies Allergies Allergy/AdvReac Type Severity Reaction Status Date / Time latex Allergy Anaphylaxis Verified 01/19/18 12:15 morphine Allergy Hives Verified 02/01/18 08:37 Cqsbdor-Fan-Xtd Reductase Allergy Hives Verified 02/01/18 08:37 Inhibitor Home Medications Medication Instructions Recorded Confirmed Type acetaminophen [Tylenol] 650 mg PO Q6H PRN 07/28/18 07/28/18 History aspirin [Aspir-81] 81 mg PO DAILY 07/28/18 07/28/18 History lisinopril 5 mg PO DAILY 07/28/18 07/28/18 History metoprolol tartrate 12.5 mg PO BID 07/28/18 07/28/18 History ticagrelor [Brilinta] 90 mg PO BID 07/28/18 07/28/18 History Physical Exam Vital signs: Vital Signs 07/28/18 23:49 07/29/18 00:00 07/29/18 01:00 Temperature 97.9 F Pulse Rate 76 62 58 L Respiratory Rate 18 Blood Pressure 96/69 L Pulse Oximetry 97 07/29/18 02:00 07/29/18 03:00 07/29/18 03:40 Temperature 97.9 F Pulse Rate 78 60 73 Respiratory Rate 19 Blood Pressure 116/70 Pulse Oximetry 97 07/29/18 04:00 07/29/18 05:00 07/29/18 06:00 Temperature Pulse Rate 76 78 72 Respiratory Rate Blood Pressure Pulse Oximetry 07/29/18 07:00 07/29/18 08:00 07/29/18 09:00 Temperature 98.5 F Pulse Rate 68 73 83 Respiratory Rate 16 Blood Pressure 116/76 Pulse Oximetry 98 07/29/18 10:00 07/29/18 10:25 07/29/18 11:00 Temperature Pulse Rate 98 H 74 Respiratory Rate Blood Pressure Pulse Oximetry 98 07/29/18 12:00 07/29/18 13:00 Temperature 98.1 F Pulse Rate 78 74 Respiratory Rate 18 Blood Pressure 118/68 Pulse Oximetry 94 L Intake & Output 07/29/18 07/29/18 07/30/18 06:59 18:59 06:59 Intake Total 480 / 480 Output Total 300 / 300 Balance 180 / 180 Weight 64 kg Intake: Oral 480 / 480 Output: Urine 300 / 300 Other: # Voids 4 Date of Last Bowel Movement 07/28/18 Narrative: GENERAL: NAD, AAOx3 SKIN: Warm and dry. HEAD: Atraumatic. Normocephalic. EYES: Pupils equal and round. No scleral icterus. No injection or drainage. ENT: No nasal bleeding or discharge. Mucous membranes pink and moist. NECK: Trachea midline. No JVD. CARDIOVASCULAR: Regular rate and rhythm. RESPIRATORY: No accessory muscle use. Clear to auscultation. Breath sounds equal bilaterally. GASTROINTESTINAL: Abdomen soft, non-tender, nondistended. Hepatic and splenic margins not palpable. MUSCULOSKELETAL: Extremities without clubbing, cyanosis, or edema. No obvious deformities. NEUROLOGICAL: Awake and alert. No obvious cranial nerve deficits. Motor grossly within normal limits. Five out of 5 muscle strength in the arms and legs. Normal speech. PSYCHIATRIC: Appropriate mood and affect; insight and judgment normal. Results 07/29/18 05:46 07/29/18 05:46 Cardiac Enzymes 07/28/18 07/28/18 07/28/18 Range/Units 11:10 13:25 19:32 AST 21 (15-37) U/L Troponin I 0.43 H 1.42 H* 6.77 H* (0.02-0.05) ng/mL 07/29/18 Range/Units 05:46 AST 26 (15-37) U/L Troponin I (0.02-0.05) ng/mL Coagulation 07/28/18 Range/Units 12:30 PT 9.9 (9.8-11.6) sec APTT 31.3 (23.4-31.7) sec CBC 07/28/18 07/29/18 Range/Units 11:10 05:46 WBC 10.7 10.7 (4.0-11.0) th/mm3 RBC 4.79 4.75 (4.50-5.90) mil/mm3 Hgb 15.3 14.9 (13.0-17.0) gm/dL Hct 43.8 43.0 (39.0-51.0) % Plt Count 301 280 (150-450) th/mm3 Neut # (Auto) 6.7 7.7 (1.8-7.7) th/mm3 Lymph # (Auto) 3.0 2.0 (1.0-4.8) th/mm3 [place] # (Auto) 0.7 0.8 (0.0-0.9) th/mm3 Eos # (Auto) 0.2 0.2 (0.0-0.4) th/mm3 Baso # (Auto) 0.1 0.1 (0.0-0.2) th/mm3 Comprehensive Metabolic Panel 07/28/18 07/29/18 Range/Units 11:10 05:46 Sodium 140 141 (136-145) meq/L Potassium 3.7 4.3 (3.5-5.1) meq/L Chloride 107 109 H (98-107) meq/L Carbon Dioxide 24.5 25.6 (21.0-32.0) meq/L BUN 12 12 (7-18) mg/dL Creatinine 0.95 0.94 (0.60-1.30) mg/dL Calcium 8.7 8.8 (8.5-10.1) mg/dL AST 21 26 (15-37) U/L ALT 34 32 (12-78) U/L Alkaline Phosphatase 72 68 (45-117) U/L Total Protein 7.5 6.8 D (6.4-8.2) g/dL Albumin 4.3 3.8 (3.4-5.0) g/dL - Imaging and Cardiology Imaging: Impressions Chest X-Ray 07/28/18 11:02 CONCLUSION: No evidence of acute cardiopulmonary disease. Assessment and Plan - Assessment (1) Abnormal EKG Code(s): R94.31 - Abnormal electrocardiogram [ECG] [EKG] Status: Acute (2) Acute non-ST elevation myocardial infarction (NSTEMI) Code(s): I21.4 - Non-ST elevation (NSTEMI) myocardial infarction Status: Acute (3) Allergy to statin medication Code(s): Z88.8 - Allergy status to other drugs, medicaments and biological substances status Status: Acute (4) CAD (coronary artery disease) Code(s): I25.10 - Atherosclerotic heart disease of alutiiq coronary artery without angina pectoris Status: Acute (5) Chest pain Code(s): R07.9 - Chest pain, unspecified Status: Acute (6) HTN (hypertension) Code(s): I10 - Essential (primary) hypertension Status: Acute - Plan 1) NSTEMI s/p MANPREET to de domenico PLB lesion 2) Cardiovascularly stable for discharge ASA/Brilinta BB/DIANA-I Change statin to Crestor Previously had problems with Lipitor If problems with Crestor, then may need PCSK-9 Inhibitor
== END 2018-07-29 13:43 | disposition home or self-care (01) | DRG 247 ==
LOC: NEPE 10:42 → NEDH 13:04 → HCIS 18:15
PROVIDERS: ADMIT Internal Medicine; ATTEND Internal Medicine
CPT/HCPCS: 71010; 71045; 80053; 84484; 85025; 85610; 85730; 92928; 93005; 93458; 93571; 99152; 99153; 99291; C1725; C1769; C1874; C1887; C1893; J1644; J2250; J3010; Q9967